=== PATIENT | female | born 1950 | race Caucasian/White ===

== ENCOUNTER 2020-07-21 13:03 | Outpatient (REF) | payer MEDICARE, SELFPAY ==
--- NOTE | 2020-07-21 | MM_ITS ---
EXAMINATION: MM SCREENING DIGITAL BREAST TOMOSYNTHESIS, BILATERAL CLINICAL INFORMATION: Screening. Asymptomatic. The lifetime risk of breast cancer based on the Tyrer-Cuzick Model is 3%. COMPARISON: Mammography: 07/16/2019, 02/10/2017 TECHNIQUE: Digital breast tomosynthesis is performed in both the craniocaudal and mediolateral oblique views along with computer-aided detection (CAD). Synthesized 2D images are generated from the tomosynthesis. FINDINGS: There are scattered areas of fibroglandular density (ACR BI-RADS breast composition Category b). Breast tissue composition is predominantly fatty. Scattered background fibroglandular and stromal densities are stable. There are no significant masses, abnormal calcifications, or other abnormalities. MM/MM tomosynthesis screening BI IMPRESSION: No mammographic evidence of malignancy. ASSESSMENT: BI-RADS 1: Negative RECOMMENDATION: Routine annual mammography screening. This patient's information was entered into a reminder system with a target due date for their next mammogram.
== END 2020-07-21 13:04 | disposition home or self-care (01) ==
LOC: HO.MAMMO 13:03
PROVIDERS: Visit Provider Internal Medicine
DX: Z12.31 Encounter for screening mammogram for malignant neoplasm of breast (principal)
CPT/HCPCS: 77063; 77067

== ENCOUNTER 2021-01-28 10:12 | Outpatient (REF) | payer MEDICARE, SELFPAY ==
--- NOTE | ~2021-01-28 | US_ITS ---
EXAMINATION: US RETROPERITONEAL COMPLETE (RENAL) CLINICAL INFORMATION: Chronic kidney disease. COMPARISON: CT abdomen pelvis 04/17/2018. Ultrasound renal 03/18/2015. TECHNIQUE: Real-time imaging of the kidneys and bladder. FINDINGS: RIGHT KIDNEY: 8.4 x 3.9 x 5.6 cm (SAG x AP x TRV). The kidney is normal in contour. There is a renal cortical thinning and increased echogenicity. No renal stone or mass. No hydronephrosis. LEFT KIDNEY: 10 x 6 x 4.8 cm (SAG x AP x TRV). The kidney is normal in contour. There is left renal cortical thinning. Left cortical echogenicity is normal. There is a 1.3 x 0.7 x 1.1 cm cyst in the lower pole. No renal calculi or hydronephrosis. BLADDER: Well distended and normal. Bilateral ureteral jets are demonstrated. Prevoid bladder volume is 197 mL. Postvoid bladder volume is 25.4 mL. US/US retroperitoneal comp IMPRESSION: Small right kidney. Bilateral renal cortical thinning and increased right renal cortical echogenicity. Small left renal cyst. Unremarkable bladder ultrasound..
== END 2021-01-28 10:13 | disposition home or self-care (01) ==
LOC: HO.US 10:12
PROVIDERS: Visit Provider Internal Medicine Hypertension Specialist
DX: N18.4 Chronic kidney disease, stage 4 (severe) (principal)
CPT/HCPCS: 76770

== ENCOUNTER → 2021-04-01 12:52 | Outpatient (BNVA) | payer MEDICARE, SELFPAY | PROVIDERS: PCP Internal Medicine; Referring Provider Internal Medicine; Visit Provider Internal Medicine Cardiovascular Disease ==

== ENCOUNTER → 2021-04-06 09:41 | Outpatient (REF) | payer MEDICARE, SELFPAY ==
--- NOTE | ~2021-04-06 | NM_ITS ---
Lexiscan Myocardial perfusion study Indication: Preoperative cardiac evaluation, assess for coronary disease and ischemia Technique: The patient was brought in for a Lexiscan perfusion study on 04/06/2021 and was injected 0.4 mg of Lexiscan intravenously. Within a minute of this injection 40 mCi of sestamibi was given intravenously. Images were obtained using the SPECT gamma camera interlaced with the gating device. Images were obtained in supine position. Resting perfusion study was performed on 04/07/2021. Patient was administered 40 mCi of sestamibi intravenously at rest. Images were then obtained in supine position. Total DLP 138mGy-cm. Images were processed with the software and compared side to side in short axis, horizontal long axis and vertical long axis views. Findings: Raw acquisition was reviewed. The stress perfusion study showed no significant perfusion abnormality. Both uncorrected as well as CT attenuation corrected images were reviewed. The gated study shows normal LV systolic function with calculated LVEF of 58%. LV cavity is normal in size. The gated study shows normal wall thickening and contraction of segments. Resting study shows no significant perfusion abnormality. Gating at rest reveals normal wall motion with ejection fraction at 66%. The findings are consistent with no reversible or fixed perfusion abnormality. NM/NM kacy perf SPECT rest & str Impression: 1. Myocardial perfusion imaging study shows normal myocardial perfusion. No evidence of any ischemia or infarction. 2. Gated LVEF is 58% during stress and 66% during rest. 3. Transient ischemic dilatation not present. EKG component of the test reported separately.
--- NOTE | 2021-04-06 09:44 | CA_ITS ---
Acquisition Time: 2021-04-06 09:42:35 Total Exercise Time: 00:02:00 Test Indications: CAD, PREOP Medications: SEE CHART Protocol: LEXISCAN Max HR: 106 BPM 71% of Pred: 148 BPM Max BP: 140/072 mmHG Max Work Load: 1.0 METS Pharmacological stress test with Lexiscan injection, while sitting and kicking her legs, without anginal symptoms, with isolated PVCs, with normotensive response to injection, with nondiagnostic EKG for ischemia. Nuclear images pending. Test reviewed with Dr Martinez. Referred By: Octavio Leiva Overread By: PREM WOODRUFF
== END ==
LOC: HO.CARD 09:41
PROVIDERS: Visit Provider Internal Medicine Cardiovascular Disease
DX: Z01.810 Encounter for preprocedural cardiovascular examination (principal)
CPT/HCPCS: 78452; 93017; A9500; J0280; J2785

== ENCOUNTER → 2021-04-09 10:10 | Outpatient (REF) | payer MEDICARE, SELFPAY ==
--- NOTE | 2021-04-09 10:15 | CA_ITS ---
Transthoracic Echocardiogram Patient (Last, First, Middle): Jordana Alicia, Gender: Female Date of : 1950 Age: 70 Procedure Date: 04/09/2021 Procedure Type: Transthoracic Echocardiogram Location: OP Height: 162.56 cm Weight: 117.94 kg BSA: 2.19 m2 Heart Rate: bpm BP: 136 / 70 mmHg Screen Maker: [email or web address] Referring MD: Octavio Leiva MD Symptoms: Z01.810 - Encounter for preprocedural cardiovascular exam... Study Quality: Fair ECG Rhythm: Sinus Conclusions: - The left ventricular systolic function is normal. The visually estimated ejection fraction is between 65-70%. - There is mild aortic valve stenosis. - There is mild mitral annular calcification. Findings Left Ventricle Normal left ventricular cavity size. There is normal left ventricular wall thickness. The left ventricular systolic function is normal. The visually estimated ejection fraction is between 65-70%. There is no evidence of regional wall motion abnormalities. Diastolic function is normal for age. Right Ventricle Normal right ventricular cavity size and systolic function. Atria Both atria are normal in size. Aortic Valve There is mild calcification of the aortic valve. There is mild aortic valve stenosis. The peak aortic velocity is 2.30 m/s with a calculated peak gradient of 21 mmHg. The mean gradient is 13 mmHg. The aortic valve area is 1.44 cm2. There is no aortic valve regurgitation. Mitral Valve There is mild mitral annular calcification. There is no mitral valve regurgitation. There is no mitral valve stenosis. Pulmonic Valve The pulmonic valve was not well visualized. Tricuspid Valve There is trace tricuspid valve regurgitation. The pulmonary artery systolic pressure is normal. Great Vessels The asc aorta is normal in size. Venous The inferior vena cava is normal in size and collapses greater than 50% with inspiration. Pericardium/Pleural There is no evidence of pericardial effusion. Prior Study Comparison No prior study available for comparison. Measurements 2D Linear Measurements IVSd: 0.94 0.6-0.9/0.6-1.0 cm LVIDd: 4.62 3.9-5.3/4.2-5.9 cm LVIDd Index: 2.11 2.4-3.2/2.2-3.1 cm/m2 LVIDs: 2.86 2.0-3.6 cm LVPWd: 0.87 0.7-1.1 cm Ao Root: 2.90 2.1-3.5 cm LA Diam: 3.30 2.7-3.8/3.0-4.0 cm LAIDs Index: 1.51 1.5-2.3 cm/m2 LV Mass: 174.57 67-162/88-224 g LV Mass Index: 79.71 43-95/49-115 g/m2 LVOT Diam: 2.00 3.0+(-)1.3 cm 2D Systolic Function EF 4C: 59.80 >55% Mitral Valve MV Pk E: 0.74 MV PK A: 0.95 MV Decel Time: 225.00 E/A: 0.80 E'Lateral: 8.27 E'Medial: 7.72 E/E' Med: 9.60 E/E' Lat: 9.00 PHT: 66.00 MVA PHT: 3.33 Decel Calvert: 3.29 Aortic Valve AoV Pk Yoav: 2.30 AoV Mn Yoav: 1.74 AoV VTI: 0.57 AoV Pk Grad: 21.00 Aov Mn Grad: 13.00 CHER Cont.VTI: 1.44 LVOT LVOT Pk Yoav: 1.02 LVOT Mn Yoav: 0.72 LVOT VTI: 0.26 LVOT Pk Grad: 4.00 LVOT Mn Grad: 2.00 LVOT Diam: 2.00 LVOT Area: 3.14 Diastolic Function MV Pk E: 0.74 MV Pk A: 0.95 E/A: 0.80 E'Medial: 7.72 E/E' Med: 9.60 E' Laterial: 8.27 E/E' Lat: 9.00 Right Ventricle TAPSE (mm): 2.82 Tricuspid Valve TR Pk Yoav: 2.09 TR Pk Grad: 17.00 RA Press: 3.00 RVSP: 20.00 Great Vessels Aorta Ao Root-2D: 2.90 2.0-3.7 cm Ao Asc: 3.40 2.1-3.4 cm Updated in Other Vendor System with Status of Final Mark Martinez MD electronically signed on 04/09/2021 1:44:57 PM with status of Final
== END ==
LOC: HO.CARD 10:10
PROVIDERS: Visit Provider Internal Medicine Cardiovascular Disease
DX: Z01.810 Encounter for preprocedural cardiovascular examination (principal); I77.9 Disorder of arteries and arterioles, unspecified
CPT/HCPCS: 93005; 93306; 99202

== ENCOUNTER → 2021-05-05 13:02 | Outpatient (BNVA) | payer MEDICARE, SELFPAY | PROVIDERS: PCP Internal Medicine; Referring Provider Internal Medicine; Visit Provider Nurse Practitioner Family | DX: Z01.810 Encounter for preprocedural cardiovascular examination (principal); I10 Essential (primary) hypertension; I77.9 Disorder of arteries and arterioles, unspecified; I35.0 Nonrheumatic aortic (valve) stenosis; E11.9 Type 2 diabetes mellitus without complications | CPT/HCPCS: 99212 ==

== ENCOUNTER 2022-06-16 11:57 | Outpatient (REF) | payer MEDICARE, SELFPAY ==
--- NOTE | ~2022-06-16 | MM_ITS ---
EXAMINATION: MM SCREENING DIGITAL BREAST TOMOSYNTHESIS, BILATERAL CLINICAL INFORMATION: Screening. Asymptomatic. The lifetime risk of breast cancer based on the Tyrer-Cuzick Model is 3%. COMPARISON: Mammography: 07/21/2020, 07/16/2019, 02/10/2017 TECHNIQUE: Digital breast tomosynthesis is performed in both the craniocaudal and mediolateral oblique views along with computer-aided detection (CAD). Synthesized 2D images are generated from the tomosynthesis. Additional left MLO view is provided. FINDINGS: There are scattered areas of fibroglandular density (ACR BI-RADS breast composition Category b). There are no significant masses, abnormal calcifications, or other abnormalities. Breast tissue composition borders on predominantly fatty. Background stromal markings are normal and similar to prior studies. No developing density or architectural abnormality. The axilla and skin contours are unremarkable. MM/MM tomosynthesis screening BI IMPRESSION: No mammographic evidence of malignancy. ASSESSMENT: BI-RADS 1: Negative RECOMMENDATION: Routine annual mammography screening. This patient's information was entered into a reminder system with a target due date for their next mammogram.
== END 2022-06-16 11:58 | disposition home or self-care (01) ==
LOC: HO.MAMMO 11:57
PROVIDERS: PCP Internal Medicine; Visit Provider Obstetrics & Gynecology
DX: Z12.31 Encounter for screening mammogram for malignant neoplasm of breast (principal)
CPT/HCPCS: 77063; 77067

== ENCOUNTER 2023-06-22 11:46 | Outpatient (REF) | payer MEDICARE, SELFPAY ==
--- NOTE | ~2023-06-22 | MM_ITS ---
EXAMINATION: MM SCREENING DIGITAL BREAST TOMOSYNTHESIS, BILATERAL CLINICAL INFORMATION: Screening. Asymptomatic. COMPARISON: Mammography: This study is compared with prior exams dating back to 2017. TECHNIQUE: Digital breast tomosynthesis is performed in both the craniocaudal and mediolateral oblique views along with computer-aided detection (CAD). Synthesized 2D images are generated from the tomosynthesis. FINDINGS: The breasts are almost entirely fatty (ACR BI-RADS breast composition Category a). There are no significant masses, abnormal calcifications, or other abnormalities. MM/MM tomosynthesis screening BI IMPRESSION: No mammographic evidence of malignancy. ASSESSMENT: BI-RADS BI-RADS 1 - Negative RECOMMENDATION: Routine annual mammography screening. 1 year F/U This examination should not preclude the clinical evaluation of a suspicious palpable abnormality. This patient's information was entered into a reminder system with a target due date for their next mammogram.
== END 2023-06-22 11:47 | disposition home or self-care (01) ==
LOC: HO.MAMMO 11:46
PROVIDERS: Visit Provider Internal Medicine
DX: Z12.31 Encounter for screening mammogram for malignant neoplasm of breast (principal)
CPT/HCPCS: 77063; 77067

== ENCOUNTER → 2023-06-22 12:15 | Outpatient (BNV) | payer MEDICARE, SELFPAY | PROVIDERS: Visit Provider Radiology Diagnostic Radiology | DX: Z12.31 Encounter for screening mammogram for malignant neoplasm of breast (principal) | CPT/HCPCS: 77063; 77067 ==

== ENCOUNTER → 2023-07-21 11:56 | Outpatient (BNVA) | payer MEDICARE, SELFPAY | PROVIDERS: PCP Internal Medicine; Visit Provider Physician Assistant ==

== ENCOUNTER 2024-07-02 06:40 | Day surgery (SDC) | payer MEDICARE, SELFPAY ==
[2024-06-20 16:45] VITALS: BMI 41.4
--- NOTE | 2024-06-21 14:01 | P.CONAN_ITS ---
Documented by User: Emily Lyles NP 06/21/24 14:02 HPI - Anesthesia Eval Consult details Narrative: 74yo F for Left Cataract Extraction IOL Insertion No previous cataract on record Anesthesia Pre-Procedure Meds Is the patient on any of the following meds?: GLP1/DPP4 PMFSH Active Problems Active Problems: All Active Problems Encounter for screening colonoscopy (Acute) Aortic stenosis (Acute) Preoperative cardiovascular examination (Acute) Carotid disease, bilateral (Acute) Diabetes mellitus (Acute) Chronic kidney disease (Acute) HTN (hypertension) (Acute) Past Medical History Medical History (Updated 06/27/24 @ 10:41 by Yoli Solis, DUSTY) Hypothyroidism PONV (postoperative nausea and vomiting) Hx of benign neoplasm of adrenal gland LETICIA (obstructive sleep apnea) Renal calculi Hypercholesteremia Cataracts, bilateral Chronic renal failure (CRF), stage 4 (severe) Arthritis Carotid disease, bilateral Diabetes mellitus Chronic kidney disease HTN (hypertension) Family History Family History Father Diabetes Mother Cancer Diabetes Surgical History Surgical History (Updated 06/27/24 @ 10:42 by Yoli Solis, DUSTY) History of back surgery (~2003) Hx of colonoscopy History of bilateral knee replacement Hx of lithotripsy History of bladder surgery Hx of total adrenalectomy Hx of thyroidectomy History of mandibular surgery Hx of knee surgery Social History Social History (Updated 06/27/24 @ 10:25 by Yoli Solis RN) Household Members: Spouse and Other Household Members Other:: Granddaughter Housing: House Are you a primary primary care provider to a significant other at home: No Do you presently have visiting nurse or other home services: No Alcohol intake: never Patient Tobacco Use Status: Former Tobacco user Tobacco use type: Cigarette Years Smoked: 25 years Smoked in Last 30 Days: No Use of substances other than those prescribed or required for medical reasons: No Have you been hit, kicked, punched, or otherwise hurt by someone within the past year? If so, by whom?: No Are you DNR?: No Advance Directives: No Advance Directives Information Provided: Yes Advance Directives on File: No Recently lost weight without trying: No Poor oral hygiene: No Meds Allergies Allergy/AdvReac Type Severity Reaction Status Date / Time oxycodone [From PERCODAN] Allergy Severe sob, Verified 06/27/24 10:31 diaphoretic, syncope Epzpvqm-UHE-OpM Reductase Allergy Severe MUSCLE PAIN Verified 06/27/24 10:31 Inhibitor [[id number] REDUCTASE INHIBITOR] Home Medications ?Medication ?Instructions ?Recorded ?Confirmed ?Last Taken ?Type amlodipine 5 mg tablet 5 mg PO DAILY 04/01/21 06/27/24 Unknown History diazepam 5 mg tablet 5 mg PO DAILY PRN Anxiety 04/01/21 06/27/24 Unknown History losartan 25 mg tablet 25 mg PO DAILY 04/01/21 06/27/24 Unknown History terazosin 2 mg capsule 2 mg PO BEDTIME 04/01/21 06/27/24 Unknown History tramadol 50 mg tablet 50 mg PO Q6H PRN Pain 04/01/21 06/27/24 Unknown History acetaminophen 500 mg tablet 500 mg PO Q6H PRN Pain 06/20/24 06/27/24 Unknown History albuterol sulfate 90 mcg/actuation 2 puff inhalation Q4H PRN wheezing 06/20/24 06/27/24 Unknown History aerosol inhaler aspirin 81 mg tablet,delayed 81 mg PO DAILY 06/20/24 06/27/24 Unknown History release famotidine 20 mg tablet 20 mg PO BID 06/20/24 06/27/24 Unknown History gabapentin 300 mg capsule 300 mg PO BEDTIME 06/20/24 06/27/24 Unknown History glucosamine sulfate 500 mg tablet 500 mg PO BEDTIME 06/20/24 06/27/24 Unknown History (Glucosamine) insulin degludec 100 30 unit subcut DAILY 06/20/24 06/27/24 Unknown History unit-liraglutide 3.6 mg/mL(3 mL) subcutaneous pen (Xultophy 100/3.6) levothyroxine 100 mcg tablet 100 mcg PO 6XW 06/20/24 06/27/24 Unknown History melatonin 10 mg tablet 15 mg PO BEDTIME PRN Insomnia 06/20/24 06/27/24 Unknown History levothyroxine 150 mcg tablet 150 mcg PO .QSUNDAY 06/27/24 06/27/24 Unknown History Exam Height,Weight and Vital Signs: Height 5 ft 4 in Weight 109.3 kg Assessment and Plan Assessment Anesthesia Assessment: Chart Reviewed Documented by User: Barb Powers MD 07/02/24 07:24 REPLACED BY [facility] Past Medical History Medical History (Updated 06/27/24 @ 10:41 by Yoli Solis RN) Hypothyroidism PONV (postoperative nausea and vomiting) Hx of benign neoplasm of adrenal gland LETICIA (obstructive sleep apnea) Renal calculi Hypercholesteremia Cataracts, bilateral Chronic renal failure (CRF), stage 4 (severe) Arthritis Carotid disease, bilateral Diabetes mellitus Chronic kidney disease HTN (hypertension) Family History Family History Father Diabetes Mother Cancer Diabetes Family history of problems with anesthesia: No Surgical History Surgical History (Updated 06/27/24 @ 10:42 by Yoli Solis RN) History of back surgery (~2003) Hx of colonoscopy History of bilateral knee replacement Hx of lithotripsy History of bladder surgery Hx of total adrenalectomy Hx of thyroidectomy History of mandibular surgery Hx of knee surgery History of Problems with Anesthesia: No Social History Social History (Updated 06/27/24 @ 10:25 by Yoli Solis RN) Household Members: Spouse and Other Household Members Other:: Granddaughter Housing: House Are you a primary primary care provider to a significant other at home: No Do you presently have visiting nurse or other home services: No Alcohol intake: never Patient Tobacco Use Status: Former Tobacco user Tobacco use type: Cigarette Years Smoked: 25 years Smoked in Last 30 Days: No Use of substances other than those prescribed or required for medical reasons: No Have you been hit, kicked, punched, or otherwise hurt by someone within the past year? If so, by whom?: No Are you DNR?: No Advance Directives: No Advance Directives Information Provided: Yes Advance Directives on File: No Recently lost weight without trying: No Poor oral hygiene: No Meds Allergies Allergy/AdvReac Type Severity Reaction Status Date / Time oxycodone [From PERCODAN] Allergy Severe sob, Verified 06/27/24 10:31 diaphoretic, syncope Tmpzypg-LLP-TpB Reductase Allergy Severe MUSCLE PAIN Verified 06/27/24 10:31 Inhibitor [[id number] REDUCTASE INHIBITOR] Home Medications ?Medication ?Instructions ?Recorded ?Confirmed ?Last Taken ?Type amlodipine 5 mg tablet 5 mg PO DAILY 04/01/21 06/27/24 Unknown History diazepam 5 mg tablet 5 mg PO DAILY PRN Anxiety 04/01/21 06/27/24 Unknown History losartan 25 mg tablet 25 mg PO DAILY 04/01/21 06/27/24 Unknown History terazosin 2 mg capsule 2 mg PO BEDTIME 04/01/21 06/27/24 Unknown History tramadol 50 mg tablet 50 mg PO Q6H PRN Pain 04/01/21 06/27/24 Unknown History acetaminophen 500 mg tablet 500 mg PO Q6H PRN Pain 06/20/24 06/27/24 Unknown History albuterol sulfate 90 mcg/actuation 2 puff inhalation Q4H PRN wheezing 06/20/24 06/27/24 Unknown History aerosol inhaler aspirin 81 mg tablet,delayed 81 mg PO DAILY 06/20/24 06/27/24 Unknown History release famotidine 20 mg tablet 20 mg PO BID 06/20/24 06/27/24 Unknown History gabapentin 300 mg capsule 300 mg PO BEDTIME 06/20/24 06/27/24 Unknown History glucosamine sulfate 500 mg tablet 500 mg PO BEDTIME 06/20/24 06/27/24 Unknown History (Glucosamine) insulin degludec 100 30 unit subcut DAILY 06/20/24 06/27/24 Unknown History unit-liraglutide 3.6 mg/mL(3 mL) subcutaneous pen (Xultophy 100/3.6) levothyroxine 100 mcg tablet 100 mcg PO 6XW 06/20/24 06/27/24 Unknown History melatonin 10 mg tablet 15 mg PO BEDTIME PRN Insomnia 06/20/24 06/27/24 Unknown History levothyroxine 150 mcg tablet 150 mcg PO .QSUNDAY 06/27/24 06/27/24 Unknown History Exam Airway Mallampati Class: II (caps laterally and front top) TM Dist: >3cm Neck ROM: Full Heart: rrr Lungs: cta Assessment and Plan Assessment Anesthesia Assessment: Anesthesia Plan Discussed Final Anesthetic Review Family History of Problems with Anesthesia: No History of Problems with Anesthesia: No NPO: Yes ASA Class: III Final Preanesthetic Review: No Changes in Pt Med Stat, Meds/Allgs Chart Reviewed and Consent Obtained/Reviewed Patient Risk: Low Procedure Risk: Low Anesthetic Plan Anesthetic Plan: MAC: Disposition: Standard PACU
[2024-06-27 10:37] VITALS: BMI 41.4
[2024-07-02 07:37] VITALS: PULSE 97; RESP 16; TEMP 36.3; O2SAT 97
[2024-07-02] MEDS: Tetracaine HCl/PF 0.5% Oph Sol 4 ML DROPS 1 DROP EYE-LEFT (07:38)
[2024-07-02] MEDS: Cyclopentolate 1 % Ophth Sol 2 ML DRPBTL 1 DROP EYE-LEFT ×3 (07:43→08:00)
[2024-07-02 07:44] LABS: Glucose, Whole Blood 165 mg/dL (60-115)
[2024-07-02] MEDS: Tropicamide 1 % Ophth Sol 3 ML BTL 1 DROP EYE-LEFT ×3 (07:48→08:04)
[2024-07-02] MEDS: Ketorolac Tromethamine 0.5% Op 10 ML DROPS 1 DROP EYE-LEFT ×3 (07:48→08:03)
[2024-07-02] MEDS: Phenylephrine HCL 2.5% Oph SoL 2 ML BOTTLE 1 DROP EYE-LEFT ×3 (07:50→08:06)
[2024-07-02] MEDS: Lactated Ringers 500 ML 50 ML IV (07:52)
[2024-07-02 07:58] VITALS: BP 168/59; BMI 41.2
--- NOTE | 2024-07-02 08:33 | MHC.SHP ---
Pre-Procedural Eval Section A - 24 Hr Update-Section A only Date of Service: 07/02/24 The patient is an INPATIENT: No Changes since office visit: No Cold of Flu in the past 2 weeks, No New Medical Problems, No Changes in Medication and No Patient answered all questions The patient has been examined within 24 hours of the surgical procedure. The History & Physical has been completed within 30 days and I have reviewed it.: Yes Section B - Complete if H&P > 30 days Chief Complaint: Age-related nuclear cataract, right eye Allergies: Allergies Allergy/AdvReac Type Severity Reaction Status Date / Time oxycodone [From PERCODAN] Allergy Severe sob, Verified 06/27/24 10:31 diaphoretic, syncope Ururptn-SYX-EpA Reductase Allergy Severe MUSCLE PAIN Verified 06/27/24 10:31 Inhibitor [[id number]-GRO REDUCTASE INHIBITOR] Plan Diagnosis/Plan: Unchanged I have reviewed the history and physical and performed a pertinent physical examination on my patient. No changes have occurred unless specified. Time Spent With Patient Time: Total time managing care of this patient today ____ minutes.
--- NOTE | 2024-07-02 08:34 | HO.PNOPHT ---
Ophthalmology Procedure Procedure Date of Service: 07/02/24 Ophthalmology Viscoelastic: Healon Duet Dual Pack Pro Ophthalmology Lenses: Other (22.5 [id number] @ 178) Procedure Notes: PREOPERATIVE DIAGNOSIS: Decreased visual acuity left eye secondary to cataract POSTOPERATIVE DIAGNOSIS: Same PROCEDURE: Left cataract extraction with multifocal intraocular lens insertion SURGEON: Juan M Berry M.D. ANESTHESIA: Topical/MAC ESTIMATED BLOOD LOSS: None COMPLICATIONS: None After obtaining informed consent, the patient was brought to the operation room suite and placed in the supine position. After adequate sedation per anesthesia, topical drops of Tetracaine were given to the left eye. The eye was then prepped and draped in the usual sterile fashion. The operating room microscope was then positioned over the operative eye and a lid speculum placed. A paracentesis was created. Viscoelastic was then instilled into the anterior chamber. A three plane incision was then created temporally, utilizing a 2.85 mm keratome. Capsulotomy forceps were then utilized to create a circular tear capsulotomy. Hydrodissection and hydrodelineation were carried out until adequate mobilization of the nucleus occurred. Phacoemulsification was then utilized to remove the dense central nucleus followed by removal of the cortical material utilizing the automated aspiration irrigation unit. Viscoelastic was instilled into the posterior capsular bag followed by placement of a toric multifocal posterior chamber intraocular lens axis 178 without difficulty. The residual Viscoelastic was then removed utilizing the automated IA machine. The wound was check and found to be watertight. The patient tolerated the procedure well and the lid speculum was removed. Intracameral injection of Vigamox 0.1 mL followed by a subtenon injection of Kenalog-40 0.2 mL were administered. The patient will be seen in the a.m.
[2024-07-02 09:04] VITALS: BP 156/63; PULSE 61; RESP 12; TEMP 36.1; O2SAT 100
[2024-07-02 09:18] VITALS: BP 158/64; PULSE 58; RESP 18; TEMP 36.1; O2SAT 100
== END 2024-07-02 09:35 | disposition home or self-care (01) ==
PROVIDERS: PCP Internal Medicine; Visit Provider Ophthalmology
PROC: (CPT 66984; principal; 2024-07-02 08:30)
DX: H25.12 Age-related nuclear cataract, left eye (principal); H52.4 Presbyopia; H18.413 Arcus senilis, bilateral; H11.153 Pinguecula, bilateral; I12.9 Hypertensive chronic kidney disease with stage 1 through stage 4 chronic kidney disease, or unspecified chronic kidney disease; E11.22 Type 2 diabetes mellitus with diabetic chronic kidney disease; N18.4 Chronic kidney disease, stage 4 (severe); E78.00 Pure hypercholesterolemia, unspecified; E03.9 Hypothyroidism, unspecified; Z79.4 Long term (current) use of insulin; Z79.82 Long term (current) use of aspirin; Z79.899 Other long term (current) drug therapy; Z88.5 Allergy status to narcotic agent; Z88.8 Allergy status to other drugs, medicaments and biological substances; Z87.891 Personal history of nicotine dependence
CPT/HCPCS: 66984; 82947; J2250; J3301

== ENCOUNTER 2024-07-09 08:11 | Day surgery (SDC) | payer MEDICARE, SELFPAY ==
[2024-06-20 16:50] VITALS: BMI 41.4
[2024-06-27 10:51] VITALS: BMI 41.4
[2024-07-09 08:54] VITALS: BMI 41.7
[2024-07-09 09:01] VITALS: BP 178/83; PULSE 63; RESP 16; TEMP 36.1; O2SAT 98
[2024-07-09] MEDS: Tetracaine HCl/PF 0.5% Oph Sol 4 ML DROPS 1 DROP EYE-RIGHT (09:06)
[2024-07-09] MEDS: Cyclopentolate 1 % Ophth Sol 2 ML DRPBTL 1 DROP EYE-RIGHT ×3 (09:07→09:12)
[2024-07-09] MEDS: Tropicamide 1 % Ophth Sol 3 ML BTL 1 DROP EYE-RIGHT ×3 (09:09→09:13)
[2024-07-09] MEDS: Ketorolac Tromethamine 0.5% Op 10 ML DROPS 1 DROP EYE-RIGHT ×3 (09:09→09:13)
[2024-07-09] MEDS: Phenylephrine HCL 2.5% Oph SoL 2 ML BOTTLE 1 DROP EYE-RIGHT ×3 (09:10→09:14)
[2024-07-09 09:29] LABS: Glucose, Whole Blood 165 mg/dL (60-115)
--- NOTE | 2024-07-09 09:35 | P.CONAN_ITS ---
HPI - Anesthesia Eval Consult details Narrative: 74 yo F presenting for right cataract extraction IOL insertion Anesthesia Pre-Procedure Meds Is the patient on any of the following meds?: GLP1/DPP4 PMFSH Active Problems Active Problems: All Active Problems Encounter for screening colonoscopy (Acute) Aortic stenosis (Acute) Preoperative cardiovascular examination (Acute) Carotid disease, bilateral (Acute) Diabetes mellitus (Acute) Chronic kidney disease (Acute) HTN (hypertension) (Acute) Past Medical History Medical History (Updated 06/27/24 @ 10:41 by Yoli Solis RN) Hypothyroidism PONV (postoperative nausea and vomiting) Hx of benign neoplasm of adrenal gland LETICIA (obstructive sleep apnea) Renal calculi Hypercholesteremia Cataracts, bilateral Chronic renal failure (CRF), stage 4 (severe) Arthritis Carotid disease, bilateral Diabetes mellitus Chronic kidney disease HTN (hypertension) Family History Family History Father Diabetes Mother Cancer Diabetes Family history of problems with anesthesia: No Surgical History Surgical History (Updated 06/27/24 @ 10:42 by Yoli Solis RN) History of back surgery (~2003) Hx of colonoscopy History of bilateral knee replacement Hx of lithotripsy History of bladder surgery Hx of total adrenalectomy Hx of thyroidectomy History of mandibular surgery Hx of knee surgery History of Problems with Anesthesia: No Social History Social History (Updated 06/27/24 @ 10:25 by Yoli Solis RN) Household Members: Spouse and Other Household Members Other:: Granddaughter Housing: House Are you a primary career development director to a significant other at home: No Do you presently have visiting nurse or other home services: No Alcohol intake: never Patient Tobacco Use Status: Former Tobacco user Tobacco use type: Cigarette Years Smoked: 25 years Smoked in Last 30 Days: No Use of substances other than those prescribed or required for medical reasons: No Have you been hit, kicked, punched, or otherwise hurt by someone within the past year? If so, by whom?: No Are you DNR?: No Advance Directives: No Advance Directives Information Provided: Yes Advance Directives on File: No Recently lost weight without trying: No Nutrition Risks: Surgical patient >75years Poor oral hygiene: No Meds Allergies Allergy/AdvReac Type Severity Reaction Status Date / Time oxycodone [From PERCODAN] Allergy Severe sob, Verified 06/27/24 10:31 diaphoretic, syncope Lyfapuc-IJV-VgP Reductase Allergy Severe MUSCLE PAIN Verified 06/27/24 10:31 Inhibitor [YNSRIXX-JRN-YMY REDUCTASE INHIBITOR] Active Medications: Current Medications Povidone Iodine (Povidone Iodine 5 % Ophth Soln 30 Ml Bottle) 1 appl EYE-RIGHT PREOP PRN PRN Reason: Pre-Op Surgical Implant Prophy Home Medications ?Medication ?Instructions ?Recorded ?Confirmed ?Last Taken ?Type amlodipine 5 mg tablet 5 mg PO DAILY 04/01/21 06/27/24 07/09/24 History diazepam 5 mg tablet 5 mg PO DAILY PRN Anxiety 04/01/21 06/27/24 Unknown History terazosin 2 mg capsule 2 mg PO BEDTIME 04/01/21 06/27/24 Unknown History tramadol 50 mg tablet 50 mg PO Q6H PRN Pain 04/01/21 06/27/24 Unknown History acetaminophen 500 mg tablet 500 mg PO Q6H PRN Pain 06/20/24 06/27/24 Unknown History albuterol sulfate 90 mcg/actuation 2 puff inhalation Q4H PRN wheezing 06/20/24 06/27/24 Unknown History aerosol inhaler aspirin 81 mg tablet,delayed 81 mg PO DAILY 06/20/24 06/27/24 Unknown History release famotidine 20 mg tablet 20 mg PO BID 06/20/24 06/27/24 Unknown History gabapentin 300 mg capsule 300 mg PO BEDTIME 06/20/24 06/27/24 Unknown History glucosamine sulfate 500 mg tablet 500 mg PO BEDTIME 06/20/24 06/27/24 Unknown History (Glucosamine) insulin degludec 100 30 unit subcut DAILY 06/20/24 06/27/24 07/06/24 History unit-liraglutide 3.6 mg/mL(3 mL) subcutaneous pen (Xultophy 100/3.6) levothyroxine 100 mcg tablet 100 mcg PO 6XW 06/20/24 06/27/24 07/09/24 History melatonin 10 mg tablet 15 mg PO BEDTIME PRN Insomnia 06/20/24 06/27/24 Unknown History levothyroxine 150 mcg tablet 150 mcg PO .QSUNDAY 06/27/24 06/27/24 Unknown History Exam Exam Date and Time: 07/09/24934 Height,Weight and Vital Signs: Height 5 ft 4 in Weight 110.336 kg Last Vital Signs Temp 96.9 F 07/09/24 09:01 Pulse 63 07/09/24 09:01 Resp 16 07/09/24 09:01 BP 178/83 H 07/09/24 09:01 Pulse Ox 98 07/09/24 09:01 O2 Del Method Room Air 07/09/24 09:01 Airway Mallampati Class: II TM Dist: <=3cm Neck ROM: Full Loose/Missing/Broken Teeth: No (patient denies any loose or broken teeth) Heart: S1S2 Lungs: CTAB Assessment and Plan Assessment Anesthesia Assessment: Anesthesia Plan Discussed and Chart Reviewed Final Anesthetic Review Family History of Problems with Anesthesia: No History of Problems with Anesthesia: No NPO: Yes ASA Class: III Final Preanesthetic Review: No Changes in Pt Med Stat, Meds/Allgs Chart Reviewed, Consent Obtained/Reviewed and Anes Risks/Benef Reviewed Patient Risk: Intermediate Procedure Risk: Low Anesthetic Plan Anesthetic Plan: MAC: and Agree w/ Assess. and Plan Disposition: Standard PACU
--- NOTE | 2024-07-09 10:09 | MHC.SHP ---
Pre-Procedural Eval Section A - 24 Hr Update-Section A only Date of Service: 07/09/24 The patient is an INPATIENT: No Changes since office visit: No Cold of Flu in the past 2 weeks, No New Medical Problems, No Changes in Medication and No Patient answered all questions The patient has been examined within 24 hours of the surgical procedure. The History & Physical has been completed within 30 days and I have reviewed it.: Yes Section B - Complete if H&P > 30 days Chief Complaint: Age-related nuclear cataract, right eye Allergies: Allergies Allergy/AdvReac Type Severity Reaction Status Date / Time oxycodone [From PERCODAN] Allergy Severe sob, Verified 06/27/24 10:31 diaphoretic, syncope Iiiduvf-CKS-XjN Reductase Allergy Severe MUSCLE PAIN Verified 06/27/24 10:31 Inhibitor [OCVQJAN-WXL-EVF REDUCTASE INHIBITOR] Plan Diagnosis/Plan: Unchanged I have reviewed the history and physical and performed a pertinent physical examination on my patient. No changes have occurred unless specified. Time Spent With Patient Time: Total time managing care of this patient today ____ minutes.
--- NOTE | 2024-07-09 10:09 | HO.PNOPHT ---
Ophthalmology Procedure Procedure Date of Service: 07/09/24 Ophthalmology Viscoelastic: Heallevi Duet Dual Pack Pro Ophthalmology Lenses: Other (23 [id number]) Procedure Notes: PREOPERATIVE DIAGNOSIS: Decreased visual acuity right eye secondary to cataract POSTOPERATIVE DIAGNOSIS: Same PROCEDURE: Right cataract extraction with toric multifocal intraocular lens insertion axis11 SURGEON: Juan M Berry M.D. ANESTHESIA: Topical/MAC ESTIMATED BLOOD LOSS: None COMPLICATIONS: None After obtaining informed consent, the patient was brought to the operating room suite and placed in the supine position. After adequate sedation per anesthesia, topical drops of Tetracaine were given to the right eye. The eye was then prepped and draped in the usual sterile fashion. The operating room microscope was then positioned over the operative eye and a lid speculum placed. A paracentesis was created. Viscoelastic was then instilled into the anterior chamber. A three plane incision was then created temporally, utilizing a 2.85 mm keratome. Capsulotomy forceps were then utilized to create a circular tear capsulotomy. Hydrodissection and hydrodelineation were carried out until adequate mobilization of the nucleus occurred. Phacoemulsification was then utilized to remove the dense central nucleus followed by removal of the cortical material utilizing the automated aspiration irrigation unit. Viscoelastic was instilled into the posterior capsular bag followed by placement of a toric multifocal posterior chamber intraocular lens axis11 without difficulty. The residual Viscoelastic was then removed utilizing the automated IA machine. The wound was checked and found to be watertight. The patient tolerated the procedure well and the lid speculum was removed. Intracameral injection of Vigamox 0.1 mL followed by a subtenon injection of Kenalog-40 0.2 mL were administered. The patient will be seen in the a.m.
[2024-07-09 10:44] VITALS: BP 153/61; PULSE 60; RESP 16; TEMP 36.3; O2SAT 98
== END 2024-07-09 10:59 | disposition home or self-care (01) ==
PROVIDERS: PCP Internal Medicine; Visit Provider Ophthalmology
PROC: (CPT 66984; principal; 2024-07-09 10:00)
DX: H25.11 Age-related nuclear cataract, right eye (principal); H52.4 Presbyopia; H11.153 Pinguecula, bilateral; E78.00 Pure hypercholesterolemia, unspecified; H18.413 Arcus senilis, bilateral; E11.22 Type 2 diabetes mellitus with diabetic chronic kidney disease; I12.9 Hypertensive chronic kidney disease with stage 1 through stage 4 chronic kidney disease, or unspecified chronic kidney disease; N18.4 Chronic kidney disease, stage 4 (severe); E03.9 Hypothyroidism, unspecified; Z79.4 Long term (current) use of insulin; Z79.82 Long term (current) use of aspirin; Z79.899 Other long term (current) drug therapy; Z88.5 Allergy status to narcotic agent; Z88.8 Allergy status to other drugs, medicaments and biological substances; Z98.890 Other specified postprocedural states; Z96.653 Presence of artificial knee joint, bilateral; Z87.891 Personal history of nicotine dependence
CPT/HCPCS: 66984; 82947; J2250; J3301; V2788

== ENCOUNTER 2024-07-16 13:50 | Outpatient (REF) | payer MEDICARE, SELFPAY ==
--- NOTE | ~2024-07-16 | MM_ITS ---
EXAMINATION: MM SCREENING DIGITAL BREAST TOMOSYNTHESIS, BILATERAL CLINICAL INFORMATION: Screening. Asymptomatic. COMPARISON: Mammography: Comparison is made with available priors TECHNIQUE: Digital breast mammography with tomosynthesis is performed in both the craniocaudal and mediolateral oblique views along with computer-aided detection (CAD). FINDINGS: There are scattered areas of fibroglandular density (ACR BI-RADS breast composition Category b). There are no significant masses, abnormal calcifications, or other abnormalities. MM/MM tomosynthesis screening BI IMPRESSION: No mammographic evidence of malignancy. ASSESSMENT: BI-RADS BI-RADS 1 - Negative RECOMMENDATION: Routine annual mammography screening. 1 year F/U This examination should not preclude the clinical evaluation of a suspicious palpable abnormality. This patient's information was entered into a reminder system with a target due date for their next mammogram. Electronically signed by: Nicole Rainey DO 07/25/2024 12:07 PM ADOLFO
== END 2024-07-16 13:51 | disposition home or self-care (01) ==
LOC: HO.MAMMO 13:50
PROVIDERS: PCP Internal Medicine; Visit Provider Internal Medicine
DX: Z12.31 Encounter for screening mammogram for malignant neoplasm of breast (principal)
CPT/HCPCS: 77063; 77067

== ENCOUNTER → 2024-07-16 14:15 | Outpatient (BNV) | payer MEDICARE, SELFPAY | PROVIDERS: PCP Internal Medicine; Visit Provider Internal Medicine | DX: Z12.31 Encounter for screening mammogram for malignant neoplasm of breast (principal) | CPT/HCPCS: 77063; 77067 ==

== ENCOUNTER 2024-12-25 12:32 | Outpatient (AMB) | payer MEDICARE, SELFPAY ==
--- NOTE | 2024-12-25 13:02 | A.OFFVIS_ITS ---
Vital Signs 12/25/24 13:05 12/25/24 13:19 Height 5 ft 4 in Weight 235 lb BMI 40.3 BP 180/93 H 138/68 Blood Pressure Location Lt brachial Lt brachial Position Sitting Sitting Pulse 65 Pulse Oximetry (%) 98 Oxygen Delivery Method Room Air Comment manual Intake Visit Reasons: Follow Up, Charity Rose pt Intake Note: Complex follow up for pre Colonoscopy screening, /Charity waldrop 07/21/2023 and Colonoscopy was never s/c. Patient cc: constipation, acid reflux with some burning sensation on and off, denies any other GI issues for today. 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 Social Welfare Required: No Accompanied by: Self / Same As Patient Allergies oxycodone [From PERCODAN] Allergy (Severe, Verified 12/25/24 13:01) sob, diaphoretic, syncope Bigradp-IKH-YnR Reductase Inhibitor [HOJLWGM-QRZ-PIJ REDUCTASE INHIBITOR] Allergy (Severe, Verified 12/25/24 13:01) MUSCLE PAIN Medication List - Last Reconciled 12/25/24 by Julia Swenson CNP acetaminophen 500 mg PO Q6H PRN albuterol sulfate 90 mcg/actuation 2 puffs inhalation Q4H PRN amlodipine 5 mg PO DAILY aspirin 81 mg PO DAILY bisacodyl (Dulcolax (bisacodyl)) 15 mg (3 x 5 mg) PO ONCE 1 day cholecalciferol (vitamin D3) 25 mcg PO DAILY diazepam 5 mg PO DAILY PRN docusate sodium 200 mg (2 x 100 mg) PO BEDTIME famotidine 20 mg PO BID PRN gabapentin 300 mg PO BEDTIME glucosamine sulfate (Glucosamine) 500 mg PO BEDTIME insulin degludec-liraglutide 100 unit-3.6 mg /mL (3 mL) (Xultophy 100/3.6) 30 units subcut DAILY levothyroxine 100 mcg PO 6XW levothyroxine 150 mcg PO .QSUNDAY losartan 25 mg PO DAILY melatonin 15 mg PO BEDTIME PRN melatonin mg PO polyethylene glycol 3350 (Miralax) 238 grams PO ONCE PRN 1 day terazosin 2 mg PO BEDTIME tramadol 50 mg PO Q6H PRN HPI HPI Follow Up, Charity Rose pt: Details: Patient is a 74-year-old female with PMH of hypothyroidism, LETICIA, arthritis, CKDIV, hypertension and diabetes. Last visit with BILLIE Pantoja 07/21/2023 for colonoscopy screening. Pt is here today for pre-colonscopy screening. Last colonoscopy 10 years ago. Shares she never received a call for appointment scheduling back in 2022. She reports taking docusate nightly with BMs every day-Type 2-3. She attributes symptoms to nightly tramadol. She denies ab pain, n/v, hemorrhoids or melena/hematochezia. consumes fruit and vegetables daily limited intake of legumes drinks approx 36-48 oz of water/day, occasionally lemonade and rarely diet coke Reports taking OTC esomeprazole approx 2x/week after consuming trigger foods for acid reflux. Last dose yesterday after eating pasta. Associated symptoms: infrequent regurgitation Aggravating factors:as above Alleviating attempts:as above Patient denies: fever/chills, n/v, appetite changes, unintentional wt loss, ab pain or dysphasia Social hx: denies ETOH use marijuana gummies 3x/week, denies other recreational drug use former smoker, cessation 30 years ago family hx -Mother, ? lung CA denies personal hx of CA PFSH Medical History (Updated 12/25/24 @ 17:54 by Julia Swenson CNP) Acid reflux Constipation Hypothyroidism PONV (postoperative nausea and vomiting) Hx of benign neoplasm of adrenal gland LETICIA (obstructive sleep apnea) Renal calculi Hypercholesteremia Cataracts, bilateral Chronic renal failure (CRF), stage 4 (severe) Arthritis Carotid disease, bilateral Diabetes mellitus Chronic kidney disease HTN (hypertension) Surgical History (Updated 12/25/24 @ 13:03 by Lorene Rodriges) Hx of cataract surgery History of back surgery (~2003) Hx of colonoscopy History of bilateral knee replacement Hx of lithotripsy History of bladder surgery Hx of total adrenalectomy Hx of thyroidectomy History of mandibular surgery Hx of knee surgery Family History Father Diabetes Mother Cancer Diabetes Social History Household Members: Spouse and Other Household Members Other:: Granddaughter Housing: House Are you a primary manager respiratory care to a significant other at home: No Do you presently have visiting nurse or other home services: No Alcohol intake: never Patient Tobacco Use Status: Former Tobacco user Tobacco use type: Cigarette Years Smoked: 25 years Review of Systems Const Reports as per [facility] ENT Reports as per [facility] Card Reports as per [facility] Resp Reports as per [facility] GI Reports as per [facility] Reports as per [facility] Physical Exam Vital Signs: Last Vital Signs Pulse 65 12/25/24 13:05 BP 138/68 12/25/24 13:19 Pulse Ox 98 12/25/24 13:05 Oxygen Delivery Method Room Air 12/25/24 13:05 BMI result Body Mass Index 40.3 Const General: healthy appearing, no acute distress and well developed Nutritional Appearance: well nourished Orientation/consciousness: patient oriented x3 HEENT Head: Yes normal to inspection, Yes normocephalic and Yes atraumatic Face and sinus: Yes normal facial exam Eyes General: appearance normal, both eyes and all related structures Neck Neck: Yes normal visual inspection Resp Effort & Inspection: normal respiratory effort, able to speak in complete sentences, no tracheal deviation and symmetric chest movement Auscultation: clear to auscultation bilaterally Cardio Jugular venous distension: no JVD Rate: regular rate Rhythm: regular rhythm Heart sounds: S1 normal heart sound present, S2 normal heart sound present, no gallops and no murmurs GI Inspection: Yes normal to inspection, No distended and Yes obesity Palpation (GI): Soft to palpation, not firm, nontender and No hepatosplenomegaly present Auscultation: normal bowel sounds Neuro General: patient oriented x3 Gait exam (Neuro): Normal gait present Psych Appearance: grossly normal Mental Status: mental status grossly normal Speech and movement: Normal speech and movement present Affect: normal affect Attitude: cooperative Thought process: Normal thought process present Thought content: Normal thought content present Insight: Good insight present (Psych) Judgement: Good judgement present (Psych) Assessment & Plan Assessment & Plan (1) Acid reflux: Code(s): K21.9 - Gastro-esophageal reflux disease without esophagitis Category: Medical Qualifiers: Esophagitis presence: esophagitis presence not specified Qualified Code(s): K21.9 - Gastro-esophageal reflux disease without esophagitis Plan: Risk factors include obesity. We will trial Pepcid for breakthrough symptoms and hold on esomeprazole at this time. We will also proceed with EGD at time of colonoscopy. Education on GERD prevention-Advised against heavy meals. Encouraged small frequent meals VS large meals, remaining upright after meals x 2-3 hours, avoid late night eating/spicy foods/caffeine/alcohol/known triggers and tight fitting clothes (2) Constipation: Code(s): K59.00 - Constipation, unspecified Category: Medical Qualifiers: Constipation type: drug induced constipation Qualified Code(s): K59.03 - Drug induced constipation Plan: Suspect drug-induced given tramadol on board. She is open to adding MiraLax, script sent. Basic labs today to screen for any anemia Reinforced lifestyle modifications to promote regularity: -higher fiber diet -adequate hydration with water -150 minutes of moderate intensity exercise per week (3) Encounter for screening colonoscopy: Comment: 10/23/2003 colonoscopy with findings of hyperplastic polyp, sigmoid colon Code(s): Z12.11 - Encounter for screening for malignant neoplasm of colon Category: Medical Plan: Does appear she had a colonoscopy here at [facility] back in October 2003 with findings of hyperplastic polyp from the sigmoid. Recommendations for repeat in 5 years. Subjective reports of colonoscopy since then at outside faciliyt-no recods. Reviewed prep and procedure expectations. She understands instructions on holding long-acting insulin prior to procedure, as well as holding aspirin 7 days prior. Prep Rx'd to preferred pharmacy. Plan Follow-up after EGD/colonoscopy are sooner as needed Time: I spent a total of 45 minutes on the date of encounter which includes: Preparing to see the patient (reviewed previous documentation, test results and medical history) Performing a medically appropriate exam and/or evaluation Ordering medications, tests, and procedures Documenting clinical information in the health record Orders: Orders Complete Blood Count Auto Diff Today K59.00 - Constipation, unspecified IRON PROFILE Today K59.00 - Constipation, unspecified Basic Metabolic Panel Today K59.00 - Constipation, unspecified Medications: New polyethylene glycol 3350 (Miralax) Take 17G (one cap full) daily with 8oz of water 17 grams PO DAILY 30 days 238 grams 2RF constipation Changed From famotidine 20 mg PO BID To famotidine 20 mg PO BID PRN 180 tabs 1RF acid reflux From bisacodyl (Dulcolax (bisacodyl)) Day before procedure, prep day Take 4 tablets by mouth upon awakening followed by large glass of water 20 mg (4 x 5 mg) PO ONCE 1 day 4 tabs 0RF colonoscopy prep Z12.11 - Encounter for screening for malignant neoplasm of colon To bisacodyl (Dulcolax (bisacodyl)) Day before procedure, prep day Take 3 tablets 12 noon day of prep 15 mg (3 x 5 mg) PO ONCE 1 day 3 tabs 0RF colonoscopy prep Z12.11 - Encounter for screening for malignant neoplasm of colon Refilled polyethylene glycol 3350 (Miralax) Take as directed by mouth the day before your procedure. 238 grams PO ONCE 1 day PRN 238 grams 0RF laxative effect Coding Level of Care Code Established Pt Est Pt Level 4 (56107) Patient Type Established Diagnoses Gastroesophageal reflux disease, unspecified whether esophagitis present K21.9 Esophagitis presence: esophagitis presence not specified Drug-induced constipation K59.03 Constipation type: drug induced constipation Encounter for screening colonoscopy Z12.11
[2024-12-25 13:05] VITALS: BP 180/93; PULSE 65; O2SAT 98; BMI 40.3
[2024-12-25 13:19] VITALS: BP 138/68
--- OUTSIDE RECORDS SUMMARY | 2024-12-25 14:51 | XMS_ITS | Patient Health Record ---
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 Bolter Helper Name Role Phone Mason Mccray MD Primary Care Provider Arjun Sam Unavailable [phone] Allergies Allergen (clinical drug ingredient) Drug/Non Drug Allergy documented on EMR Reaction Allergy Type Onset Date Status atorvastatin Atorvastatin Calcium headaches, myalgia Drug Allergy Active Codeine Phosphate Unknown Drug Allergy Active acetaminophen / oxycodone Percocet Unknown Drug Allergy Active pravastatin Pravastatin Sodium myalgia Drug Allergy Active Simvastatin myalgia Drug Allergy Activ e lisinopril Zestril cough Drug Allergy Active Reason For Referral No Information Medications Medication SIG (Take, Route, Frequency, Duration) Notes Start Date End Date Status Acetaminophen 500 MG 1 capsule as needed Orally every 6 hrs PRN Active Co Q 10 Active amLODIPine Besylate 2.5 MG Orally Active Losartan Potassium 25 MG Orally Active Gabapentin 300 MG Orally Twice a day Active Terazosin HCl 2 MG Orally A ctive traMADol HCl 50 MG Orally PRN Active Ammonium Lactate 12 % 1 APPLICATION EXTE RNALLY TWICE A DAY 30 DAYS for 70 Active tiZANidine HCl Not-T aking Tresiba 65 Not-Takin g Turmeric 450 MG as directed Orally Not-Taking NovoLOG 35 Subcutaneous before meal Not-Taking VESIcare 10 MG Orally Activ e oxyBUTYnin Not-Takin g Extra Depth Orthopedic Shoes (1 Pair) with Customized Heat Molded Multidensity Innersoles (3 Pair) as directed Dx: NIDDM/Polyneuropathy (E11.42), Hammertoe Foot Deformity (M20.41,M20.42), Preulcerative Skin Lesion(s) (L85.1 Active Synthroid 125 MCG 1 tablet on an empty stomach in the morning Orally Once a day for 30 day(s) Active Vitamin B12 Active Vitamin D3 Active Xultophy Active Rosuvastatin Calcium 5 MG 1 tablet Orally Once a day Not-Taking Immunizations Vaccine Route Administration Date Status Comme nts COVID-19 Moderna Vaccine Unknown 06/19/2022 Administered 1st 10/29/20 2nd 11/26/20 3rd 10/28/21 Influenza Unknown 09/05/2018 Administered Influenza Unknown 05/07/2019 Administered Influenza Unknown 06/05/2022 Administered Influenza Unknown 05/06/2023 Administered Social History Tobacco Use: Social History Observation Description Date Details (start date - stop date) Never Smoker NA - NA Tobacco use other than smoking: Question Answer Notes Are you an other tobacco user? No Tobacco Control (Standard) Question Answer Notes Tobacco use: Nonsmoker Additional Findings: Tobacco non-user Current no nsmoker AUDIT-C (Standard) Question Answer Notes Did you have a drink containing alcohol in the p ast year? No Points 0 Interpretation Negative Problems Problem Type SNOMED Code ICD Code Onset Dates Problem Status W/U Status Risk Notes Problem 11202331 Other hammer toe(s) (acquired), right foot (M20.41) Active confirmed Response to treatment, Improvemen t Problem 20348413 Other hammer toe(s) (acquired), left foot (M20.42) Active confirmed Response to treatment, Improvemen t Problem Polyneuropathy due to type 2 diabetes mellitus (258943890) Type 2 diabetes mellitus with diabetic polyneuropathy (E11.42) Active confirmed Vital Signs Blood pressure diastolic 80 mm Hg 10/19/2024 Height 5ft 4in in 10/19/2024 Blood pressure systolic 121 mm Hg 10/19/2024 Weight 230 lbs 10/19/2024 BMI 39.48 kg/m2 10/19/2024 Procedures Procedure Date Ordered Date Performed Result Body Sit e 75526-ZIGDEWK NAIL, 1-5 04/20/2024 N/A 26163-STIX SKIN LESIONS, OVER 4 04/20/2024 N/A A3845-KXGQPJPQ DYSTROPHIC NAILS ANY # 04/20/2024 N/A 75563-MUMXUMX NAIL, 1-5 07/20/2024 N/A 90528-PZWW SKIN LESIONS, OVER 4 07/20/2024 N/A Q5814-MKKXCXIF DYSTROPHIC NAILS ANY # 07/20/2024 N/A 74926-FGRJFBM NAIL, 1-5 10/19/2024 N/A 90905-WHFR SKIN LESIONS, OVER 4 10/19/2024 N/A Q6212-YDODNQZH DYSTROPHIC NAILS ANY # 10/19/2024 N/A Encounters Encounter Location Date Provider Diagnosis [address] [address] 04/20/2024 Arjun Yates Type 2 diabetes mellitus with diabetic polyneuropathy E11.42 ; Tinea unguium B35.1 and Xerosis of skin L85.[address] [address] 07/20/2024 Arjun Yates Type 2 diabetes mellitus with diabetic polyneuropathy E11.42 ; Tinea unguium B35.1 ; Other hammer toe(s) (acquired), right foot M20.41 and Other hammer toe(s) (acquired), left foot M20.[address] [address] 10/19/2024 Arjun Yates Type 2 diabetes mellitus with diabetic polyneuropathy E11.42 ; Tinea unguium B35.1 ; Other hammer toe(s) (acquired), right foot M20.41 and Other hammer toe(s) (acquired), left foot M20.42 Assessments Encounter Date Diagnosis (ICD Code) Assessment Notes Treatment Notes Treatment Clinical Notes Section Notes 04/20/2024 Tinea unguium (ICD-10 - B35.1) 04/20/2024 Type 2 diabetes mellitus with diabetic polyneuropathy (ICD-10 - E11.42) 07/20/2024 Tinea unguium (ICD-10 - B35.1) 07/20/2024 Type 2 diabetes mellitus with diabetic polyneuropathy (ICD-10 - E11.42) 10/19/2024 Tinea unguium (ICD-10 - B35.1) 10/19/2024 Type 2 diabetes mellitus with diabetic polyneuropathy (ICD-10 - E11.42) 04/20/2024 Xerosis of skin (ICD-10 - L85.3) 07/20/2024 Other hammer toe(s) (acquired), right foot (ICD-10 - M20.41) Patient Educated with: DIABETIC FOOT CARE INSTRUCTIONS. pdf (DIABETIC FOOT CARE INSTRUCTIONS. pdf) 10/19/2024 Other hammer toe(s) (acquired), right foot (ICD-10 - M20.41) Patient Educated with: DIABETIC FOOT CARE INSTRUCTIONS. pdf (DIABETIC FOOT CARE INSTRUCTIONS. pdf) 10/19/2024 Other hammer toe(s) (acquired), left foot (ICD-10 - M20.42) 07/20/2024 Other hammer toe(s) (acquired), left foot (ICD-10 - M20.42) Plan Of Treatment Pending Test Test Name Order Date 89407-HOWGEOC NAIL, 1-12/26/2018 56237-MBZGNMJ NAIL, -03/06/2019 53602-KZJXTTS NAIL, -06/05/2019 81271-MNWHXZE NAIL, -08/07/2019 66996-FIGVVBG NAIL, -11/02/2019 07804-VFZYIID NAIL, -01/11/2020 79829-NNHQZTQ NAIL, -03/14/2020 92413-CVVIXOH NAIL, -05/23/2020 31028-BPNRLOY NAIL, -08/08/2020 68939-FZBDGSN NAIL, -10/17/2020 02332-NSQIJVW NAIL, -12/26/2020 99505-ZNMRFWD NAIL, -03/10/2021 56244-JPLJSGW NAIL, -06/02/2021 57597-XTFTCUG NAIL, -5 09/11/2021 94415-DHCIBFK NAIL, -11/24/2021 89179-PDRWGLM NAIL, -02/09/2022 64670-LPBPLMZ NAIL, -05/11/2022 28457-PUWOVIV NAIL, -07/23/2022 20398-ZLHLUGB NAIL, -10/19/2022 66618-UMGPBMP NAIL, -01/07/2023 82283-TIGNLYQ NAIL, -03/25/2023 50821-NDJAUGN NAIL, 1-5 06/10/2023 62300-GXZJJVG NAIL, 1-5 08/23/2023 13198-TRVLKNQ NAIL, 1-5 11/04/2023 19437-XOHVVAO NAIL, 1-5 04/20/2024 31046-VEBSKHF NAIL, 1-5 07/20/2024 13930-OAXVABI NAIL, 1-5 10/19/2024 76651-SSTQ SKIN LESIONS, OVER 4 10/19/19 99241-TTJT SKIN LESIONS, OVER 4 07/20/20 57288-VBXL SKIN LESIONS, OVER 4 04/20/20 55362-AMFW SKIN LESIONS, OVER 4 11/04/19 54839-IDVQ SKIN LESIONS, OVER 4 08/23/20 23619-EXFF SKIN LESIONS, OVER 4 11/25/19 86927-YBFL SKIN LESIONS, OVER 4 06/10/20 47454-JRTM SKIN LESIONS, OVER 4 03/25/20 78403-OAAG SKIN LESIONS, OVER 4 01/08/20 24069-GAKL SKIN LESIONS, OVER 4 10/19/19 95773-IZTC SKIN LESIONS, OVER 4 07/23/20 56988-WXLA SKIN LESIONS, OVER 4 05/11/20 51125-DNZZ SKIN LESIONS, OVER 4 02/10/20 23229-HMXL SKIN LESIONS, OVER 4 12/27/19 30593-KYLC SKIN LESIONS, OVER 4 09/11/19 87382-PGAS SKIN LESIONS, OVER 4 03/10/20 78752-OFTX SKIN LESIONS, OVER 4 06/02/20 93813-WZCE SKIN LESIONS, OVER 4 08/08/20 50407-CXNW SKIN LESIONS, OVER 4 10/17/19 70847-CZOI SKIN LESIONS, OVER 4 03/14/20 70380-SZGO SKIN LESIONS, OVER 4 05/23/20 63858-NXUQ SKIN LESIONS, OVER 4 06/05/20 79035-SSLM SKIN LESIONS, OVER 4 01/11/20 73220-GHKD SKIN LESIONS, OVER 4 08/07/20 20054-KMGN SKIN LESIONS, OVER 4 11/02/19 20 26762-WCWL SKIN LESIONS, OVER 4 12/27/19 31630-TGOB SKIN LESIONS, OVER 4 03/06/20 F6084-GROHXRML DYSTROPHIC NAILS ANY # T8892-OIIQKCQC DYSTROPHIC NAILS ANY # N9709-XXQSWSBR DYSTROPHIC NAILS ANY # I9906-JHKYCUNQ DYSTROPHIC NAILS ANY # T6903-SBHWKIVZ DYSTROPHIC NAILS ANY # U0269-SWFAKELB DYSTROPHIC NAILS ANY # B6852-RELALDSU DYSTROPHIC NAILS ANY # Z9993-YPODBXBM DYSTROPHIC NAILS ANY # Z7011-MOFEAFLW DYSTROPHIC NAILS ANY # I0206-BUJUTEAW DYSTROPHIC NAILS ANY # J1605-AZTXTJTY DYSTROPHIC NAILS ANY # I3900-MDHLQXJH DYSTROPHIC NAILS ANY # P0821-IKWKHGSR DYSTROPHIC NAILS ANY # G3743-YRQIYWNS DYSTROPHIC NAILS ANY # L1915-MYUDWSAQ DYSTROPHIC NAILS ANY # O5830-URBOAOSN DYSTROPHIC NAILS ANY # B9113-FEWCSCCQ DYSTROPHIC NAILS ANY # U5772-FQHVLPMK DYSTROPHIC NAILS ANY # H1269-VUQCTGVI DYSTROPHIC NAILS ANY # A4354-EENUHIAA DYSTROPHIC NAILS ANY # D6628-PFIVSBML DYSTROPHIC NAILS ANY # M0830-IYHYKZXF DYSTROPHIC NAILS ANY # H2688-ZGQPTPBK DYSTROPHIC NAILS ANY # W7795-AWYDHVDK DYSTROPHIC NAILS ANY # H9449-UEWLHIGS DYSTROPHIC NAILS ANY # X1211-MUKLUVNW DYSTROPHIC NAILS ANY # N1649-WKDQDTKI DYSTROPHIC NAILS ANY # Next Appt Details Provider Name:Arjun Yates , 01/25/2025 10:00:00 AM, [address] [place], [address], Insurance Providers Payer Name Payer Address Payer Phone Subscriber Number Group Number Insured Name Patient Relationship to Insured Coverage Start Date Coverage End Date Medicare [employer] [address] [place] [address] [phone] [id number] DennisAllena Self - patient [facility] the [facility] [address] [place] [address] [id number] Jordana Collins Self - patient is the insured Medical (General) History Medical History History ICD Code Arthritis asthma Back,Hip,and Knee pain CAD (Cholesterol) Gout High blood pressure Kidney disease Poor circulation thyroid Vascular phlebitis (clots) Warts Joint implants/screws type II diabetes Surgical History Surgery Date(Month/Year) Jaw reconstruction 09/1981 Thyroid removed 10/25/2012 Adrenal gland 12/19/2013 stone blasted 09/20/2013 vladislav knee replacement 09/2005,06/17/21
--- OUTSIDE RECORDS SUMMARY | 2024-12-25 14:51 | XMS_ITS ---
Author Organization [facility] Address [address] [place] [address] Care Team Providers Care Director Of Residential Services Name Role Phone Mason Mccray MD Primary Care Provider Arjun Sam Unavailable [phone] Allergies Allergen (clinical drug ingredient) Drug/Non Drug Allergy documented on EMR Reaction Allergy Type Onset Date Status atorvastatin Atorvastatin Calcium headaches, myalgia Drug Allergy Active Codeine Phosphate Unknown Drug Allergy Active acetaminophen / oxycodone Percocet Unknown Drug Allergy Active pravastatin Pravastatin Sodium myalgia Drug Allergy Active Simvastatin myalgia Drug Allergy Activ e lisinopril Zestril cough Drug Allergy Active REASON FOR VISIT At Risk Footcare, Toe Irritation Medications Medication SIG (Take, Route, Frequency, Duration) Notes Start Date End Date Status tiZANidine HCl Not-T aking Tresiba 65 Not-Takin g Turmeric 450 MG as directed Orally Not-Taking NovoLOG 35 Subcutaneous before meal Not-Taking oxyBUTYnin Not-Takin g Vitamin B12 Active Vitamin D3 Active Ammonium Lactate 12 % 1 APPLICATION EXTE RNALLY TWICE A DAY 30 DAYS for 30 Active Xultophy Active Rosuvastatin Calcium 5 MG 1 tablet Orally Once a day Not-Taking Losartan Potassium 25 MG Orally Active Terazosin HCl 2 MG Orally A ctive traMADol HCl 50 MG Orally PRN Active VESIcare 10 MG Orally Activ e Synthroid 125 MCG 1 tablet on an empty stomach in the morning Orally Once a day for 30 day(s) Active Acetaminophen 500 MG 1 capsule as needed Orally every 6 hrs PRN Active Co Q 10 Active amLODIPine Besylate 2.5 MG Orally Active Gabapentin 300 MG Orally Twice a day Active Extra Depth Orthopedic Shoes (1 Pair) with Customized Heat Molded Multidensity Innersoles (3 Pair) as directed Dx: NIDDM/Polyneuropathy (E11.42), Hammertoe Foot Deformity (M20.41,M20.42), Preulcerative Skin Lesion(s) (L85.1 Active Social History Tobacco Use: Social History Observation [...] ast year? No Points 0 Interpretation Negative Vital Signs Height 5ft 4in in 10/19/2024 Weight 230 lbs 10/19/2024 BMI 39.48 kg/m2 10/19/2024 Blood pressure systolic 121 mm Hg 10/19/19 25 Blood pressure diastolic 80 mm Hg 025 Procedures Procedure Date Ordered Date Performed Result Body Sit e 02274-NEMJJWP NAIL, 1-5 10/19/2024 N/A 15498-OBUT SKIN LESIONS, OVER 4 10/19/2024 N/A [id number] DYSTROPHIC NAILS ANY # 10/19/2024 N/A Encounters Encounter Location Date Provider Diagnosis [facility] [address] [place] [address] 10/19/2024 Arjun Yates Type 2 diabetes mellitus with diabetic polyneuropathy E11.42 ; Tinea unguium B35.1 ; Other hammer toe(s) (acquired), right foot M20.41 and Other hammer toe(s) (acquired), left foot M20.42 Assessments Encounter Date Diagnosis (ICD Code) Assessment Notes Treatment Notes Treatment Clinical Notes Section Notes 10/19/2024 Type 2 diabetes mellitus with diabetic polyneuropathy (ICD-10 - E11.42) 10/19/2024 Tinea unguium (ICD-10 - B35.1) 10/19/2024 Other hammer toe(s) (acquired), right foot (ICD-10 - M20.41) Patient Educated with: DIABETIC FOOT CARE INSTRUCTIONS. pdf (DIABETIC FOOT CARE INSTRUCTIONS. pdf) 10/19/2024 Other hammer toe(s) (acquired), left foot (ICD-10 - M20.42) Plan Of Treatment Medication Medication Name Sig Start Date Stop Date Notes Extra Depth Orthopedic Shoes (1 Pair) with Customized Heat Molded Multidensity Innersoles (3 Pair) as directed Dx: NIDDM/Polyneuropathy (E11.42), Hammertoe Foot Deformity (M20.41,M20.42), Preulcerative Skin Lesion(s) (L85.1 Treatment Notes Assessment Notes Other hammer toe(s) (acquired), right fo ot Patient Educated with: DIABETIC FOOT CARE INSTRUCTIONS.pdf (DIABETIC FOOT CARE INSTRUCTIONS.pdf) Pending Test Test Name Order Date [id number] NAIL, 1-5 10/19/2024 09415-VSDM SKIN LESIONS, OVER 4 10/19/19 [id number] DYSTROPHIC NAILS ANY # Next Appt Details Follow Up: prn, Reason: Provider Name:Arjun Yates , 01/25/2025 10:00:00 AM, [address] [place] [address], [phone], Procedure Notes * Category Sub-Category Detail Notes Keratoma Treatment Parring or Cutting o f Benign Hyperkeratotic Lesion(s) (-57) More than 4 Lesions - Due to the at risk nature of the patients medical condition as documented in the exam findings, performance of this keratoderma treatment is medically necessary as its management by an unskilled/untrained nonprofessional would put this patients foot and overall health at risk. Therefore, the benign hyperkeratotic lesions, ( 6 ) in total, locations as stated and described in the exam ( Medial plantar, IPJ, TA, Medial plantar, IPJ, T5, SUB MTH (s), 1, B/L, Plantar, Heel(s), B/L ), were pared, and/or cut utilizing a sterile 15 blade, tissue nippers, and/or power dremel instrumentation by the physician of record - 04852 Debride Nails 1-5 Procedure: Due to the cli nical pathology outlined in the exam findings, performance of this nail treatment is medically necessary as its management by an unskilled/untrained nonprofessional would put this patients foot and overall health at risk. Therefore, debridement to affected nail(s), as described in exam ( T5 ), was performed exclusively by the physician of record to reduce/remove overall nail length, girth, thickness, subungual debris, and necrotic tissue, by manual and/or electrical means through the use of a nail nipper and/or dremel stylegrinder, to a more viable healthy nail plate or bed tissue 5 nails or fewer in number. Silver nitrate was used for any petechial bleeding as necessary. Definitive antifungal treatment options, both pharmaceutical and surgical, have been reviewed and discussed with the patient. The patient solely prefers the use of intermittent/as needed professional debridement services for their nail condition and understands that additional periodic treatments may be required as necessary to maintain effective symptomatic relief - 77307 Nail Reduction Nail Reduction (-27) Trimming o f all dystrophic nails - Due to the at risk nature of the patients medical condition as documented in the exam findings, performance of this nail treatment is medically necessary as its management by an unskilled/untrained nonprofessional would put this patients foot and overall health at risk. Therefore, the dystrophic nails, in locations as stated and described in the exam ( TA, T1, T2, T3, T4, T6, T7, T8, T9 ), were debrided by the phisician of record to reduce/remove overall nail length and girth, by manual and electrical means with use of a nail nipper and/or dremel, to more viable healthy nail plate or bed tissue - G0127 Progress Notes * Jordana COLLINS PDOB:[birth year] (74 yo F)Acc No.[id number]:10/19/2024 Progress Note Patient:?COLLINS, Jordana P Provider:?Arjun Yates DPM :1950???Age:74 Y???Sex:Female D ate:10/19/2024 Address:[facility] [address], [facility], [id number] Pcp:Mason Mccray MD Subjective: * Chief Complaints: * ???At Risk FootcareToe Irrit ation * HPI: ???At Risk footcare:?Pt States Last PCP Visit:?Date?06/25/2024 ???Toe pain:?Location:?B/L feet.?Duration:?several years.?Course:?worse.?Aggravated by:?shoes, any pressure.?Treatments:?change in shoes, Rx shoes, states still needs?.? * ROS:?General/Constitutional:?Nausea?denies.?Vomiting?denies.?Hunger Thirst?denies.?Loss appetite?denies.?Chills?denies.?Fatigue?denies.?Fever?denies.?Night Sweats?denies.?Unexplained weight loss?denies.?Unexplained weight gain?denies.?HEENTM:?Dentures?denies.?Dizziness?denies.?Glasses/contacts?admits.?Retinopathy?den ies.?Blurred/double vision?denies.?TMJ?denies.?Discharge/drainage?denies.?Implants?denies.?Sore throat?denies.?Dental implants?denies.?Hard of hearing ?denies.?Difficulty chewing/swallowing/speaking?denies.?Nose bleeds?denies.?Sore mouth?denies.?Respiratory:?On O xygen?denies.?Pneumonia/pleurisy?denies.?Bronchitis?denies.?Emphysema?denies.?Co ughing?denies.?Cough blood?denies.?Shortness of breath?denies.?Wheezing?denies.?Cardiovascular:?Pacemaker?denies.?MVP?denies.?WPW?denies.?CHF?denies.?Heart attack?denies.?Septal defect?denies.?Rapid beat?denies.?Chest pain ?denies.?Atrial Fib.?denies.?Murmur/Palpitations?denies.?Gastrointestinal:?Hemorrhoids?denies.?Stomach/Abdominal pain?denies.?Dark blood stool?denies.?Irritable bowel ?denies.?Constipation?denies.?Diarrhea?denies.?Hematology:?Swelling?admits.?Clots?denies.?Varicose Veins?admits.?Bruising?denies.?Bleeding problem?denies.?Genitourinary:?Blood urine?admits.?Frequent/Painfu/urination/bladder control?denies.?Kidney stones?admits.?Infection (UTI)?denies.?Nephropathy?denies.?sex trans dis (STD)?denies.?Prostate?denies.?Musculoskeletal:?Hammertoes?admits.?Bunions?admits.?Back Pain?admits.?Muscle Cramps/ Resting?denies.?Muscle cramps / walking?denies.?Generalized aches and pains?denies.?Weakness?denies.?Integ.:?Cisse?denies.?Scars?denies.?Corns/calluses?admits.?Ingrown nails?admits.?Painful nails?denies.?Open Sores?denies.?Rashes?denies.?Neurologic:?Difficulty sleeping?denies.?Brain disorder?denies.?Numbness?admits.?Balance trouble?denies.?Confusion?denies.?Fainting/blackouts?denies.?Tingling?admits, bilateral lower extremities, in the toes, that is moderate.?Tremors?denies.? * Medical History:? * Surgical History:?Jaw recons truction 09/1981Thyroid removed 10/25/2012drenal gland 12/19/2013stone blasted 09/20/2013il knee replacement 09/2005,06/17/21 * Hospitalization/Major Diagno stic Procedure:?Denies Past Hospitalization * Family History:?Mother: dece ased, diagnosed with Other malignant neoplasm of unspecified site, Diabetic - NIDDM, Unspecified essential hypertension.?Father: , diagnosed with Other malignant neoplasm of unspecified site, Diabetic - NIDDM, Unspecified essential hypertension.?Maternal Grand Mother: diagnosed with Unspecified cerebral artery occlusion with cerebral infarction.?1 daughter(s) . .? * Social History:?Tobacco Use:?Tobacco use other than smoking?Are you an other tobacco user??No ?Tobacco Control (Standard)?Tobacco use:?Nonsmoker ?Additional Findings: Tobacco non-user?Current nonsmoker ???Drugs/Alcohol:?Drugs?Have you used drugs other than those for medical reasons in the past 12 months??No ???Miscellaneous:?Caffeine: yes, frequency:, 2 cups per day. ?Children: yes. ?Exercise: no. ?Marital status: . ?Occupation: Retired-[employer]. ???Drug/Alcohol:?AUDIT-C (Standard)?Did you have a drink containing alcohol in the past year??No ?Points?0 ?Interpretation?Negative * Medications:?TakingAcetamino phen 500 MG Capsule 1 capsule as needed Orally every 6 hrs , Notes to Pharmacist: PRNamLODIPine Besylate 2.5 MG Tablet Orally Co Q 10 Gabapentin 300 MG Capsule Orally Twice a day Losartan Potassium 25 MG Tablet Orally traMADol HCl 50 MG Tablet Orally PRN Terazosin HCl 2 MG Capsule Orally Synthroid 125 MCG Tablet 1 tablet on an empty stomach in the morning Orally Once a day VESIcare 10 MG Tablet Orally Vitamin D3 Vitamin B12 Xultophy Ammonium Lactate 12 % Cream 1 APPLICATION EXTERNALLY TWICE A DAY 30 DAYS Extra Depth Orthopedic Shoes (1 Pair) with Customized Heat Molded Multidensity Innersoles (3 Pair) as directed Dx: NIDDM/Polyneuropathy (E11.42), Hammertoe Foot Deformity (M20.41,M20.42), Preulcerative Skin Lesion(s) (L85.1 Taking Acetaminophen 500 MG Capsule 1 capsule as needed Orally every 6 hrs , Notes to Pharmacist: PRNTaking amLODIPine Besylate 2.5 MG Tablet Orally Taking Co Q 10 Taking Gabapentin 300 MG Capsule Orally Twice a day Taking Losartan Potassium 25 MG Tablet Orally Taking traMADol HCl 50 MG Tablet Orally PRN Taking Terazosin HCl 2 MG Capsule Orally Taking Synthroid 125 MCG Tablet 1 tablet on an empty stomach in the morning Orally Once a day Taking VESIcare 10 MG Tablet Orally Taking Vitamin D3 Taking Vitamin B12 Taking Xultophy Taking Ammonium Lactate 12 % Cream 1 APPLICATION EXTERNALLY TWICE A DAY 30 DAYS Taking Extra Depth Orthopedic Shoes (1 Pair) with Customized Heat Molded Multidensity Innersoles (3 Pair) as directed Dx: NIDDM/Polyneuropathy (E11.42), Hammertoe Foot Deformity (M20.41,M20.42), Preulcerative Skin Lesion(s) (L85.1 Not-Taking/PRNRosuvastatin Calcium 5 MG Tablet 1 tablet Orally Once a day Tresiba 65 tiZANidine HCl NovoLOG 35 Subcutaneous before meal Turmeric 450 MG Capsule as directed Orally oxyBUTYnin Medication List reviewed and reconciled with the patientNot-Taking/PRN Rosuvastatin Calcium 5 MG Tablet 1 tablet Orally Once a day Not-Taking/PRN Tresiba 65 Not-Taking/PRN tiZANidine HCl Not-Taking/PRN NovoLOG 35 Subcutaneous before meal Not-Taking/PRN Turmeric 450 MG Capsule as directed Orally Not-Taking/PRN oxyBUTYnin Medication List reviewed and reconciled with the patient * Allergies:?Codeine Phosphate PercocetZestril: coughSimvastatin: myalgiaPravastatin Sodium: myalgiaAtorvastatin Calcium: headaches, myalgiayes[Allergies Verified] Objective: * Vitals:?Ht: 5ft 4in, Wt:230, BMI: 39.48, Shoe size:10-10.5, BP:121/80mm Hg, BS:112, Ht-cm: 162.56 cm, Wt-k.33 kg. * ???Past Orders: ???Lab:HEMOGLOBIN A1C (GLYCO HEMOGLOBIN) (Order Date - 12/05/2023) (Collection Date & Time - 12/05/2023) ? Value Reference Range ?HEMOGLOBIN A1C % (HH) 5.9 * Examination: ???Ophthalmology Referral: ?DIABETES EYE EXAM?Procedure Performed:?Yes ?Date of Exam Performed?08/07/2024 ?Diabetic Retinopathy Screening:?Yes ?Retinal Screening Performed:?Yes ?Findings of Diabetic Eye Exam:?no retinopathy?Neurological: ?SENSORY:? Neurological exam demonstrates, reduced light touch sensation, reduced sharp/dull discrimination, reduced vibration sensation, in a stocking fashion, B/L, 5.07 monofilament test performed at plantar aspects of 5 varied sites per foot shows sensation, reduced, B/L, Pt relates, tingling, Forefoot, B/L.?Nails: ?NAILS are:?Elongated, overgrown, dystrophic, lytic, greater than 3mm thick, discolored and friable with crumbly malodorous subungual debris, T5, all other nails not described with characteristics as possessing mycosis are elongated, overgrown, and dystrophic ( TA, T1, T2, T3, T4, T6, T7, T8, T9?).?Dermatologic: ?SKIN FINDINGS:?Skin exam reveals Keratotic lesion(s) located at, Medial plantar, IPJ, TA, Medial plantar, IPJ, T5, SUB MTH (s), 1, B/L, Plantar, Heel(s), B/L.?Orthopedic: ?MUSCLE STRENGTH:?5/5 all groups in a symmetrical fashion , B/L.?FOOT MORPHOLOGY:? Pes Planus structure, No Charcot collapse/destruction noted at MTJ.?DIGITAL DEFORMITIES:?Digital contracture, PIPJ, 2-5 B/L, incompl-reducible to push-up test, no over, nor underlapping,?there is?evidence of shoe producing skin irritation.?FOOTWEAR:?worn, OT were inspected and noted to be severely worn , in poor condition not giving proper support at the present time , shoe gear properties exacerbate patient's foot/toe deformity.?Vascular: ?DP PULSES (B):? 1, B/L.?PT PULSES (B):? 09/08, B/L.?CAPILLARY FILL TIME:? 3 secs. per digit, B/L.?TROPHIC CONDITION-TEXTURE/ELASTICITY/TURGOR/HAIR GROWTH (B):?normal, B/L.?TEMPERTURE GRADIENT (C):?normal, warm to cool, proximal to distal, B/L, B/L.?PIGMENTATION:?normal, B/L.?EDEMA (C):? 09/08, non-pitting, without aching pain, B/L, Leg(s), Ankle(s).?General Examination: ?GENERAL APPEARANCE:?Reveals a pleasant, alert, well nourished, well developed, well hydrated individual, who demonstrates proper attention to hygiene/body habitus, and is in no acute distress , Pt serves as own historian for office visit today.?ORIENTED:?person, place, and time.?FOOT EXAM:?Lower Extremity Neurological Exam performed:?Yes ?Visual exam of foot performed:?Yes ?Date?10/19/2024 ?Footwear Evaluation?Footwear Evaluation performed:?Yes??? Assessment: * Assessment: 1.?Tinea unguium - B35.1???2 .?Type 2 diabetes mellitus with diabetic polyneuropathy - E11.42 (Primary)???3.?Other hammer toe(s) (acquired), right foot - M20.41???Specify :Chronic problem, Worse (4),Rx Management (4)???4.?Other hammer toe(s) (acquired), left foot - M20.42???Specify :Chronic problem, Worse (4),Rx Management (4)??? Plan: * Treatment: 2.?Other hammer toe(s) (acqu ired), right foot? Start Extra Depth Orthopedic Shoes (1 Pair) with Customized Heat Molded Multidensity Innersoles (3 Pair), as directed, Dx: NIDDM/Polyneuropathy (E11.42), Hammertoe Foot Deformity (M20.41,M20.42), Preulcerative Skin Lesion(s) (L85.1, 1, Refills 0.?? Notes: Patient Educated with: DIABETIC FOOT CARE INSTRUCTIONS.pdf (DIABETIC FOOT CARE INSTRUCTIONS.pdf)?? * Procedures:?Debride Nails 1-5:?Procedure:?Due to the clinical pathology outlined in the exam findings, performance of this nail treatment is medically necessary as its management by an unskilled/untrained nonprofessional would put this patients foot and overall health at risk. Therefore, debridement to affected nail(s), as described in exam ( T5 ), was performed exclusively by the physician of record to reduce/remove overall nail length, girth, thickness, subungual debris, and necrotic tissue, by manual and/or electrical means through the use of a nail nipper and/or dremel stylegrinder, to a more viable healthy nail plate or bed tissue 5 nails or fewer in number. Silver nitrate was used for any petechial bleeding as necessary. Definitive antifungal treatment options, both pharmaceutical and surgical, have been reviewed and discussed with the patient. The patient solely prefers the use of intermittent/as needed professional debridement services for their nail condition and understands that additional periodic treatments may be required as necessary to maintain effective symptomatic relief - 66230.?Keratoma Treatment:?Parring or Cutting of Benign Hyperkeratotic Lesion(s)?(-57) More than 4 Lesions - Due to the at risk nature of the patients medical condition as documented in the exam findings, performance of this keratoderma treatment is medically necessary as its management by an unskilled/untrained nonprofessional would put this patients foot and overall health at risk. Therefore, the benign hyperkeratotic lesions, ( 6 ) in total, locations as stated and described in the exam (?Medial plantar,?IPJ,?TA,?Medial plantar,?IPJ,?T5,?SUB MTH (s),?1,?B/L,?Plantar,?Heel(s),?B/L?), were pared, and/or cut utilizing a sterile 15 blade, tissue nippers, and/or power dremel instrumentation by the physician of record - 49471.?Nail Reduction:?Nail Reduction?(-27) Trimming of all dystrophic nails - Due to the at risk nature of the patients medical condition as documented in the exam findings, performance of this nail treatment is medically necessary as its management by an unskilled/untrained nonprofessional would put this patients foot and overall health at risk. Therefore, the dystrophic nails, in locations as stated and described in the exam (??TA, T1, T2, T3, T4, T6, T7, T8, T9?), were debrided by the phisician of record to reduce/remove overall nail length and girth, by manual and electrical means with use of a nail nipper and/or dremel, to more viable healthy nail plate or bed tissue - G0127.? * Procedure Codes:?G0127 ARLENE ING DYSTROPHIC NAILS ANY #, Modifiers: XS 03262 DEBRIDE NAIL, 1-5, Modifiers: XS 48178 TRIM SKIN LESIONS, OVER 4, Modifiers: XS * Preventive Medicine:? ??Counseling:?Discussion:?-14: Office or other outpatient visit for the evaluation and management of an established patient, which required a medically appropriate history and/or examination and MODERATE level of DECISION MAKING for: 1 OR MORE CHRONIC PROBLEM(S) THATS WORSENING, 2 STABLE CHRONIC PROBLEMS, A NEWLY DIAGNOSED PROBLEM WITH UNCERTAIN PROGNOSIS, AN ACUTE COMPLICATED INJURY WITH MULTIPLE TREATMENT OPTIONS, OR AN ACUTE PROBLEM WITH ACCOMPANYING SYSTEMIC SYMPTOMS, THAT POSE(S) A MODERATE RISK OF MORBIDITY. THIS CONDITION MAY ALSO INCLUDE RX DRUG MANAGEMENT, OR A DECISON FOR MINOR SURGERY. The visit on the day of the encounter encompassed interpreting the data and educating the patient as to the nature of their condition, treatment options available according to their individual PMH, meds, allergies, and overall health/living conditions, as well as any potential risks or complications that may occur from a failure to adhere to, and participate in, the recommended course of therapy. The discussion included a complete verbal, and/or written explanation of the examination results, any x-rays taken, the proposed diagnosis, and outline of the treatment plan. A schedule for future care needs was also explained. The patient verbalized an understanding of the instructions at this time and agreed to be an active participant in their treatment. If the patient should think of any questions or concerns after the visit, I have encouraged the patient to call the office.?Digital Surgery:?Digital surgery was discussed with the patient, We elected to try conservative treatment at the present time, due to the patients medical history and increased asssociated post-operative risks.?Digital Treatment:?HT- I explained to the patient the possible etiologies of Hammertoes, including genetics/foot type/shoegear/activity level/exercise routine and the risks/benefits of all the different treatment options for their pain including: No treatment at all, Rest, Ice, New/supportive/wider/deeper Shoegear, Digital Padding/Strapping/Taping/Bracing/Gel protective sleeves, Foot/Ankle AFO Bracing, Stretching exercises, Deep Tissue Massage, Arch support/shoe inserts with splay metatarsal padding, and Custom orthoses. I insisted that any digital devices be removed daily and not worn overnight for safety. The patient is to carefully examine the toes daily for any skin irritation while using any splinting or padding device. The advantages and disadvantages of each option were discussed and the patients questions re: shoegear, padding, custom vs prefabricated inserts, activity level, and consistency in home treatment regimens for optimal success were answered to their verbally confirmed satisfaction.?Shoe Gear Counseling:?SHOE Rx - The patient was counseled in great detail on their muscoloskeletal foot and toe deformities which coincided with the dermatological presentations visualized on exam. We discussed how their deformities put the integrity of their feet at risk for potential pedal complications which makes the accomidative diabetic shoes and cutomizable inserts medically necessary. We discussed the different shoe and insert treatment types and options, as well as the important advantages for adhering to regularly wearing these accomidative devices daily. The patient was made aware of the fact that a failure to abide by these recommedations may be deleterious to their foot health as they are able to prevent many pedal complications such as skin irritation, skin ulceration, infection, and even loss of toe/foot/leg/or life. Time was also spent with the patient dispensing and discussing proper diabetic footcare techniques including daily skin moisturization, daily foot inspection for any interruption in skin integrity including open lesions, or sign of infection such as redness/malodor/drainage/swelling. Also discussed and recommended were procedures regarding daily shoe inspection for the presence of internal foreign bodies as well as any visualized irregular shoe or insert wear. Patient questions re: shoes, inserts, and self foot inspections were answered to their satisfaction as the patient verbally confirmed a full understanding of the above information. A Rx for Extra Depth Orthopedic Shoes with 3 pair of custom heat-molded inserts was dispensed.? ??Screening/Special Tests:?Fall Risk?Screening:?No falls in the past year ?FALLS: Screening for Future Fall Risk?Have you had any falls with injury in the past year??No * Follow Up:?prn * Images: * Sign off status: Completed true * Provider:?Arjun Yates DPM Date:?2024 Generated for Cassia mckinney/Bari/iFnaitting on:?12/25/2024 02:51 PM EDT History and Physical Notes * HPI (History of Present Illness) Category Sub-Category Detail Notes Category Not es Toe pain Location: B/L feet Duration: several years Course: worse Aggravated by: shoes, any pressure Treatments: change in shoes, Rx shoes, states still needs At Risk footcare Pt States Last PCP Visit: Date: 4 Examination Category Sub-Category Detail Notes Category Not es Neurological SENSORY: Neurological exa m demonstrates, reduced light touch sensation, reduced sharp/dull discrimination, reduced vibration sensation, in a stocking fashion, B/L, 5.07 monofilament test performed at plantar aspects of 5 varied sites per foot shows sensation, reduced, B/L, Pt relates, tingling, Forefoot, B/L Dermatologic SKIN FINDINGS: Skin exam reveal s Keratotic lesion(s) located at, Medial plantar, IPJ, TA, Medial plantar, IPJ, T5, SUB MTH (s), 1, B/L, Plantar, Heel(s), B/L Orthopedic FOOT MORPHOLOGY: Pes Planus stru cture, No Charcot collapse/destruction noted at MTJ FOOTWEAR EVALUATION: worn, OT were inspe cted and noted to be severely worn , in poor condition not giving proper support at the present time , shoe gear properties exacerbate patient's foot/toe deformity DIGITAL DEFORMITIES: Digital contracture , PIPJ, 2-5 B/L, incompl-reducible to push-up test, no over, nor underlapping, there is evidence of shoe producing skin irritation MUSCLE STRENGTH: 5/5 all groups in a symmetrical fashion , B/L General Examination GENERAL APPEARANCE: Reveals a pleasant, alert, well nourished, well developed, well hydrated individual, who demonstrates proper attention to hygiene/body habitus, and is in no acute distress , Pt serves as own historian for office visit today FOOT EXAM: Lower Extremity Neurological Exa m performed:: Yes Visual exam of foot performed:: Yes Date: 10/19/2024 ORIENTED: person, place, and t shady Footwear Evaluation Footwear Evaluation performe d:: Yes Ophthalmology Referral DIABETES EYE EXAM Procedure Perform ed:: Yes ?Date of Exam Performed: 08/07/2024 Diabetic Retinopathy Screening:: Yes Retinal Screening Performed:: Yes Findings of Diabetic Eye Exam:: no retin opathy Vascular DP PULSES (B): 1/4, B/L PT PULSES (B): 1/4, B/L CAPILLARY FILL TIME: 3 secs. per digit, B/L TEMPERTURE GRADIENT (C): normal, warm to cool, proximal to distal, B/L, B/L TROPHIC CONDITION-TEXTURE/ELASTICITY/TURGOR/HAIR GROWTH (B): normal, B/L EDEMA (C): 1/4, non-pitting, wi thout aching pain, B/L, Leg(s), Ankle(s) PIGMENTATION: normal, B/L Nails NAILS are: Elongated, overg rown, dystrophic, lytic, greater than 3mm thick, discolored and friable with crumbly malodorous subungual debris, T5, all other nails not described with characteristics as possessing mycosis are elongated, overgrown, and dystrophic ( TA, T1, T2, T3, T4, T6, T7, T8, T9 )
--- OUTSIDE RECORDS SUMMARY | 2024-12-25 14:52 | XMS_ITS ---
[facility] Address [address] [place] [address] Care Team Providers Care Casing Soaker Name Role Phone Mason Mccray MD Primary Care Provider Arjun Sam Unavailable [phone] Allergies Allergen (clinical drug ingredient) Drug/Non Drug [...] Duration) Notes Start Date End Date Status amLODIPine Besylate 2.5 MG Orally Active Co Q 10 Active Gabapentin 300 MG Orally Twice a day Active oxyBUTYnin Not-Takin g Acetaminophen 500 MG 1 capsule as needed Orally every 6 hrs PRN Active Tresiba 65 Not-Takin g Turmeric 450 MG as directed Orally Not-Taking Extra Depth Orthopedic Shoes (1 Pair) with Customized Heat Molded Multidensity Innersoles (3 Pair) as directed Dx: NIDDM/Polyneuropathy (E11.42), Hammertoe Foot Deformity (M20.41,M20.42), Preulcerative Skin Lesion(s) (L85.1 07/20/2024 Active tiZANidine HCl Not-T aking NovoLOG 35 Subcutaneous before meal Not-Taking Ammonium Lactate 12 % 1 APPLICATION EXTE RNALLY TWICE A DAY 30 DAYS for 30 Active Rosuvastatin Calcium 5 MG 1 tablet Orally Once a day Not-Taking Vitamin B12 Active Xultophy Active Vitamin D3 Active Terazosin HCl 2 MG Orally A ctive Synthroid 125 MCG 1 tablet on an empty stomach in the morning Orally Once a day for 30 day(s) Active Losartan Potassium 25 MG Orally Active traMADol HCl 50 MG Orally PRN Active VESIcare 10 MG Orally Activ e Social History Tobacco Use: Social History Observation Description Date Details (start date - stop date) Former Smoker NA - NA Tobacco Use/Smoking Question Answer Notes Are you a: former smoker Additional Findings: Tobacco Non-User Current no n-smoker Alcohol Screen Question Answer Notes Did you have a drink containing alcohol in the p ast year? No Points 0 Interpretation Negative Tobacco use other than smoking: Question Answer Notes Are you an other tobacco user? No Vital Signs Height 5ft 4in in 07/20/2024 Weight 230 lbs 07/20/2024 BMI 39.48 kg/m2 07/20/2024 Blood pressure systolic 130 mm Hg 07/20/20 24 Blood pressure diastolic 70 mm Hg 024 Procedures Procedure Date Ordered Date Performed Result Body Sit e 98845-TVIYJQD NAIL, 1-5 07/20/2024 N/A 18183-WHBS SKIN LESIONS, OVER 4 07/20/2024 N/A [id number]-[id number] DYSTROPHIC NAILS ANY # 07/20/2024 N/A Encounters Encounter Location Date Provider Diagnosis [facility] [place] [address] [place] [address] 07/20/2024 Arjun Yates Type 2 diabetes mellitus with diabetic polyneuropathy E11.42 ; Tinea unguium B35.1 ; Other hammer toe(s) (acquired), right foot M20.41 and Other hammer toe(s) (acquired), left foot M20.42 Assessments Encounter Date Diagnosis (ICD Code) Assessment Notes Treatment Notes Treatment Clinical Notes Section Notes 07/20/2024 Type 2 diabetes mellitus with diabetic polyneuropathy (ICD-10 - E11.42) 07/20/2024 Tinea unguium (ICD-10 - B35.1) 07/20/2024 Other hammer toe(s) (acquired), right foot (ICD-10 - M20.41) Patient Educated with: DIABETIC FOOT CARE INSTRUCTIONS. pdf (DIABETIC FOOT CARE INSTRUCTIONS. pdf) 07/20/2024 Other hammer toe(s) (acquired), left foot (ICD-10 - M20.42) Plan Of Treatment Medication Medication Name Sig Start Date Stop Date Notes Extra Depth Orthopedic Shoes (1 Pair) with Customized Heat Molded Multidensity Innersoles (3 Pair) as directed Dx: NIDDM/Polyneuropathy (E11.42), Hammertoe Foot Deformity (M20.41,M20.42), Preulcerative Skin Lesion(s) (L85.1 07/20/2024 Treatment Notes Assessment Notes Other hammer toe(s) (acquired), right fo ot Patient Educated with: DIABETIC FOOT CARE INSTRUCTIONS.pdf (DIABETIC FOOT CARE INSTRUCTIONS.pdf) Pending Test Test Name Order Date [id number] NAIL, 1-5 07/20/2024 53566-XPYT SKIN LESIONS, OVER 4 07/20/20 24 [id number]-ZPTOZBBF DYSTROPHIC NAILS ANY # Next Appt Details Follow Up: prn, Reason: Provider Name:Arjun Yates , 01/25/2025 10:00:00 AM, [address] [place] [address], [phone], Procedure Notes * Category Sub-Category Detail Notes Keratoma Treatment Parring or Cutting o f Benign Hyperkeratotic Lesion(s) (-57) More than 4 Lesions - The Benign hyperkeratotic lesions, as described in exam, were pared, and/or cut utilizing a sterile 15 blade, tissue nippers, and/or dremel - 60354 Debride Nails 1-5 Procedure: Performance of this nail treatment by a nonprofessional would put this patients foot and overall health at risk. Therefore, debridement to affected nail(s), as described in exam, was performed extensively to reduce/remove overall nail length, girth, thickness, subungual debris, and necrotic tissue, by manual and/or electrical means through the use of a nail nipper and/or dremel-type card grinder helper, to a more viable healthy nail plate or bed tissue 1-5. Silver nitrate used for any petechial bleeding as necessary. Definitive antifungal treatment options have been reviewed and discussed with the patient. The patient chooses, no pharmaceutical tx - 21958 Nail Reduction Nail Reduction (-27) Trimming o f dystrophic nails, as described in exam, was performed to reduce/remove overall nail length and girth, by manual and electrical means with use of a nail nipper and/or dremel, to more viable healthy nail plate or bed tissue, any number - G0127 Progress Notes * Jordana COLLINS PDOB:[birth year] (74 yo F)Acc No.[id number]:07/20/2024 Progress Note Patient:?Jordana COLLINS P Provider:?Arjun Yates DPM :1950???Age:74 Y???Sex:Female D ate:07/20/2024 Address:[address] [place] [address] , [facility], [facility], [id number] Pcp:Mason Mccray MD Subjective: * Chief Complaints: * ???At Risk FootcareToe Irrit ation * HPI: ???At Risk footcare:?Pt States Last PCP Visit:?Date?06/25/2024 ???Toe pain:?Location:?B/L feet.?Duration:?several years.?Course:?worse.?Aggravated by:?shoes, any pressure.?Treatments:?change in shoes.? * ROS:?General/Constitutional:?Nausea?denies.?Vomiting?denies.?Hunger Thirst?denies.?Loss appetite?denies.?Chills?denies.?Fatigue?denies.?Fever?denies.?Night Sweats?denies.?Unexplained weight loss?denies.?Unexplained weight gain?denies.?HEENTM:?Dentures?denies.?Dizziness?denies.?Glasses/contacts?admits.?Retinopathy?de nies.?Blurred/double vision?denies.?TMJ?denies.?Discharge/drainage?denies.?Implants?denies.?Sore throat?denies.?Dental implants?denies.?Hard of hearing ?denies.?Difficulty chewing/swallowing/speaking?denies.?Nose bleeds?denies.?Sore mouth?denies.?Respiratory:?On Oxygen?denies.?Pneumonia/pleurisy?denies.?Bronchitis?denies.?Emphysema?denies.?C oughing?denies.?Cough blood?denies.?Shortness of breath?denies.?Wheezing?denies.?Cardiovascular:?Pacemaker?denies.?MVP?denies.?WPW?denies.?CHF?denies.?Heart attack?denies.?Septal defect?denies.?Rapid beat?denies.?Chest pain [...] daughter(s) . .? * Social History:?Tobacco Use:?Tobacco Use/Smoking?Are you a:?former smoker ?Additional Findings: Tobacco Non-User?Current non-smoker ?Tobacco use other than smoking?Are you an other tobacco user??No ???Drugs/Alcohol:?Drugs?Have you used drugs other than those for medical reasons in the past 12 months??No ?Alcohol Screen?Did you have a drink containing alcohol in the past year??No ?Points?0 ?Interpretation?Negative ???Miscellaneous:?Caffeine: yes, frequency:, 2 cups per day. ?Children: yes. ?Exercise: no. ?Marital status: . 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 * Medications:?TakingAcetamino phen 500 MG Capsule 1 [...] EXTERNALLY TWICE A DAY 30 DAYS Taking Acetaminophen 500 MG Capsule 1 capsule [...] APPLICATION EXTERNALLY TWICE A DAY 30 DAYS Not-Taking/PRNRosuvastatin Calcium 5 MG Tablet 1 tablet [...] 5ft 4in, Wt:230, BMI: 39.48, Shoe size:10-10.5, BP:130/70mm Hg, BS:108, Ht-cm: 162.56 cm, Wt-k.33 kg. * ???Past Orders: ???Lab:HEMOGLOBIN A1C (GLYCO HEMOGLOBIN) (Order Date - 12/05/2023) (Collection Date & Time - 12/05/2023) ? Value Reference Range ?HEMOGLOBIN A1C % (HH) 5.9 * Examination: ???Neurological: ?SENSORY:? Neurological exam demonstrates, reduced light touch sensation, reduced sharp/dull discrimination, reduced vibration sensation, in a stocking fashion, B/L, 5.07 monofilament test performed at plantar aspects of 5 varied sites per foot shows sensation, reduced, B/L, Pt relates, tingling, Forefoot, B/L.?Nails: ?NAILS are:?Elongated, overgrown, dystrophic, lytic, greater than 3mm thick, discolored and friable with crumbly malodorous subungual debris, T5, remaining nails are elongated, overgrown, dystrophic.?Dermatologic: ?SKIN FINDINGS:?Skin exam reveals Keratotic lesion(s) located [...] gear properties exacerbate patient's foot/toe deformity.?Vascular: ?DP PULSES(B):? 1/4, B/L.?PT PULSES(B):? 1/4, B/L.?CAPILLARY FILL TIME:? 3 secs. per digit, B/L.?TROPHIC CONDITION-TEXTURE/ELASTICITY/TURGOR/HAIR GROWTH(B):?normal, B/L.?TEMPERTURE GRADIENT(C):?normal, warm to cool, proximal to distal, B/L, B/L.?PIGMENTATION:?normal, B/L.?EDEMA(C):? 1/, non-pitting, without aching pain, B/L, Leg(s), Ankle(s).?Ophthalmology Referral: ?DIABETES EYE EXAM?Diabetic Retinopathy Screening:?Yes ?Retinal Screening Performed:?Yes ?Findings of Diabetic Eye Exam:?no retinopathy?General Examination: ?GENERAL APPEARANCE:?Reveals a pleasant, alert, well nourished, well developed, well hydrated individual, who demonstrates proper attention to hygiene/body habitus, and is in no acute distress , Pt serves as own historian for office visit today.?ORIENTED:?person, place, and time.?FOOT EXAM:?Lower Extremity Neurological Exam performed:?Yes ?Footwear Evaluation?Footwear Evaluation performed:?Yes??? Assessment: * Assessment: [...] (DIABETIC FOOT CARE INSTRUCTIONS.pdf)?? * Procedures:?Debride Nails 1-5:?Procedure:?Performance of this nail treatment by a nonprofessional would put this patients foot and overall health at risk. Therefore, debridement to affected nail(s), as described in exam, was performed extensively to reduce/remove overall nail length, girth, thickness, subungual debris, and necrotic tissue, by manual and/or electrical means through the use of a nail nipper and/or dremel-type card grinder helper, to a more viable healthy nail plate or bed tissue 1-5. Silver nitrate used for any petechial bleeding as necessary. Definitive antifungal treatment options have been reviewed and discussed with the patient. The patient chooses, no pharmaceutical tx - [id number].?Keratoma Treatment:?Parring or Cutting of Benign Hyperkeratotic Lesion(s)?(-57) More than 4 Lesions - The Benign hyperkeratotic lesions, as described in exam, were pared, and/or cut utilizing a sterile 15 blade, tissue nippers, and/or dremel - 01745.?Nail Reduction:?Nail Reduction?(-27) Trimming of dystrophic nails, as described in exam, was performed to reduce/remove overall nail length and girth, by manual and electrical means with use of a nail nipper and/or dremel, to more viable healthy nail plate or bed tissue, any number - G0127.? * Procedure Codes:?G0127 ARLENE ING DYSTROPHIC NAILS ANY #, Modifiers: XS 59852 DEBRIDE NAIL, 1-5, Modifiers: XS 93696 TRIM SKIN LESIONS, OVER 4, Modifiers: XS * Preventive Medicine:? ??Counseling:?BMI Care goal follow-up plan:?BMI counseling provided to patient:?Lifestyle education ?Discussion:?-14: Office or other outpatient visit for the [...] custom heat-molded inserts was dispensed.? ??Screening/Special Tests:?Fall Risk?Assessment:?Performed ?Plan of Care:?Documented ?Screening:?No falls in the past year ?FALLS: Screening for Future Fall Risk?Have you had any falls with injury in the past year??No * Follow Up:?prn * Images: * Sign off status: Completed true * Provider:?Arjun Yates DPM Date:?2023 Generated for Cassia mckinney/Bari/Rudy on:?12/25/2024 02:52 PM EDT History and Physical Notes * HPI (History of Present Illness) Category Sub-Category Detail Notes Category Not es Toe pain Location: B/L feet Duration: several years Course: worse Aggravated by: shoes, any pressure Treatments: change in shoes At Risk footcare Pt States Last PCP [...] Lower Extremity Neurological Exa m performed:: Yes ORIENTED: person, place, and t shady Footwear Evaluation Footwear Evaluation performe d:: Yes Ophthalmology Referral DIABETES EYE EXAM Diabetic Retinopa thy Screening:: Yes Retinal Screening Performed:: Yes Findings [...] friable with crumbly malodorous subungual debris, T5, remaining nails are elongated, overgrown, dystrophic
--- OUTSIDE RECORDS SUMMARY | 2024-12-25 14:52 | XMS_ITS | Clinical Summary ---
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 Name Role Phone Mason Mccray MD Primary Care Provider Allergies Active Allergy Reactions Criticality Noted Date Comments Codeine Other (see comments) 02/09/2022 Lisinopril Other (see comments) 09/27/2017 Oxycodone-Aspirin Other (see comments) ,Nausea And Vomiting 03/02/2021 Oxycodone-Acetaminophen Other (see comments) Statins Other (see comments) 09/27/2017 Medications GLUCOSAMINE-CHO NDROITIN PO Take by mouth every 6 (six) months Active acetaminophen (TYLENOL 8 HOUR) 650 MG 8 hr tablet Active ammonium lactate (AMLACTIN) 12 % cream Apply 1 application topically if needed 9 Active gabapentin (NEURONTIN) 300 MG capsule Take 1 capsule by mouth at bed time 0 Active levothyroxine (SYNTHROID, LEVOTHROID) 125 MCG tablet 1 TABLET DAILY AND TAKE 1.5 TABLETS ON SUNDAYS(SYNTHROI D- NAME BRAND ONLY) 0 Active traMADol (ULTRAM) 50 MG tablet TAKE 1 TABLET BY MOUTH EVERY 6 HOURS NEEDED FOR PAIN 0 Active terazosin (HYTRIN) 5 MG capsule 0 Active Melatonin 10 MG capsule Take by mouth Active amLODIPine (NORVASC) 5 MG tablet Take 5 mg by mouth 1 (one) time each day 1 Active diazePAM (VALIUM) 5 MG tablet TAKE 1 TABLET BY MOUTH PRIOR TO PROCEDURE 1 Active Xultophy 100-3.6 UNIT-MG/ML solution pen-injector 50 Units 1 (one) time each day 1 Active cyanocobalamin (VITAMIN B-12) 100 MCG tablet Take 1,000 mg by mouth Active cholecalciferol (VITAMIN D-3 SUPER STRENGTH) 50 MCG (2000 UT) tablet Take 2,000 Units by mouth daily Active senna (SENOKOT) 8.6 MG tablet Take 1 tablet by mouth at night if needed Active Pitavastatin Calcium (Livalo) 1 MG tablet Take by mouth Active losartan (COZAAR) 25 MG tablet TAKE 1 TABLET BY MOUTH EVERY DAY 90 tablet 4 3 Active Active Problems Problem Noted Date Diagnosed Date Carotid artery stenosis 05/01/2024 Peripheral vascular disease 05/01/2024 Chronic kidney disease, stage 4 (severe) 023 Obstructive nephropathy 08/22/2023 Other hydronephrosis 08/22/2023 Proteinuria, not otherwise specified 08/22/2023 Peripheral arterial occlusive disease 08/22/2023 Secondary hyperparathyroidism 08/22/2023 H/O: major abdominal surgery 04/20/2022 History of total thyroidectomy 04/20/2022 Hypertension 01/14/2021 Morbid obesity 01/14/2021 Renal stone 01/14/2021 Vesicoureteric reflux 01/14/2021 Body mass index 30+ - obesity 01/11/2019 Overview (03/02/2021): Last Assessment & Plan: Jordana has lost significant weight on weight watchers She is encouraged to continue with healthy lifestyle Advised that with weight loss and increased activity she will improve insulin sensitivity and require less insulin Dyslipidemia 09/30/2017 Overview (03/02/2021): Last Assessment & Plan: Intolerant of statin therapy Has upcoming routine labs including lipid panel Spinal stenosis 09/30/2017 Diabetes mellitus, not otherwise specified 09/22 Overview (03/02/2021): Last Assessment & Plan: Currently on higher dose of Tresiba however FPG are consistently above target We discussed trial of Victoza, this will not negatively impact renal function and will hopefully help optimize blood sugars without need for further insulin increase Victoza may have benefits for weight management whereas it's very likely that further increase in insulin therapy will lead to weight gain If Jordana tolerates Victoza well then the combination, Xultophy, may be an option which improves convenience and is more cost effective Encouraged to be more active, we discussed chair exercises which will lead to less pain than weight bearing exercises We will check in with Jordana in one week to see how she is doing, we will follow up in the office in 4 months; Jordana is encouraged to contact me with any questions or concerns Resolved Problems Problem Noted Date Diagnosed Date Resolved Date Chronic kidney disease stage 3 01/14/2021 06/10/2021 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 Unclear what caused the inflammation but the swelling is apparent as is moderate loss of function. Patient referred to Dr. Flanagan for further evaluation, for now cold packs to take down swelling and Capzasin glue stick to treat topically. Temporary use of nonsteroidals acceptable. Pure hypercholesterolemia 04/05/2018 Overview (03/02/2021): Last Assessment & Plan: Intolerant of multiple statin medications LDL above goal May be a candidate for PCSK9 class which is likely to be better tolerated Encounters Date Type Department Care Team Description 11/01/2024 Orders Only [facility].. [address] [place] [phone] Kevon Powers MD Chronic kidney disease, stage 4 (severe) (HCC); Proteinuria, not otherwise specified; Secondary hyperparathyroidism (HCC); Hypertension; Obstructive nephropathy; Dyslipidemia 10/31/2024 10:40 AM EST Office Visit [facility] [address] [phone] Kevon Powers MD Chronic kidney disease, stage 4 (severe) (HCC) (Primary Dx); Diabetes mellitus, not otherwise specified (HCC); Obstructive nephropathy; Other hydronephrosis; Proteinuria, not otherwise specified; Secondary hyperparathyroidism (HCC); Vesicoureteric reflux; Peripheral arterial occlusive disease (HCC); Dyslipidemia 10/31/2024 Office Communication [facility] [address] [phone] Kevon Powers MD 10/31/2024 Office Communication [facility] [address] [phone] Kevon Powers MD from Last 3 Months Immunizations Immunization Administration Dates Next Due Influenza Split High Dose Pr eservative Free IM 06/01/2018,09/30/2017,06/03/2016,07/18,06/21/2014,06/07/2013 Influenza TIV (IM) 07/06/2012,06/23/2011 Influenza, Quadrivalent, Pre servative Free 06/18/2019 Influenza, Unspecified 06/01/2021,06/05/2020, Moderna SARS-COV-2 11/26/2020,10/29/2020 Pneumococcal Conjugate 13-Valent 06/30/2017,12/0 01/2016 Pneumococcal Polysaccharide 11/20/2014, 4,07/06/2004 Tdap 11/17/2010 Zoster 03/16/2020,07/14/2019,07/06/2012 Family History Medical History Relation Comments Cancer Father Melanoma on back Diabetes Father Heart disease Father Hypertension Father Cancer Mother Lung cancer Diabetes Mother Hypertension Mother Cancer Sibling Brain cancer Relation Status Comments Father Mother Sibling Social History Tobacco Use Types Packs/Day Years Used Date Smoking Tobacco: Former Cigarettes Q uit: 09/05/1993 Smokeless Tobacco: Never Tobacco Cessation:Counseling Given: Not Answered Comments:Smoking History Info:Every day Alcohol Use Standard Drinks/Week Comments No 0 (1 standard drink = 0.6 oz pur e alcohol) Comments Unknown Sex and Gender Information Value Date Recorded Sex Assigned at Not on file Legal Sex Female 4:39 PM EST Gender Identity Not on file Sexual Orientation Not on file Last Filed Vital Signs Vital Sign Reading Time Taken Comments Blood Pressure 178/76 10/31/2024 8:58 AM EST Pulse 74 10/31/2024 8:58 AM EST Temperature - - Respiratory Rate - - Oxygen Saturation 97% 10/31/2024 8:58 AM EST Inhaled Oxygen Concentration - - Weight 112 kg (248 lb) 10/31/2024 8:58 AM EST Height 162.6 cm (5' 4 ) 10/31/2024 8:58 AM EST Body Mass Index 42.57 10/31/2024 8:58 AM EST Plan of Treatment Upcoming Encounters Date Type Department Care Team (Late st Contact Info) Description 01/29/2025 10:00 AM EDT [facility] [address] [phone] Kevon Powers MD [address] [phone] Health Maintenance Due Date Last Done Comments Diabetes: Ophthalmology Exam 01/14/2021 Diabetes: Pedal Pulse Checked 01/14/2021 Diabetes: Sensory Foot Exam 01/14/2021 Diabetes: Visual Foot Exam 01/14/2021 Diabetes: Hemoglobin A1C 06/23/2021 021, 02/05/2021, 06/26/2020 Pneumococcal Vaccine: 50+ Years Completed 06/30/2017, 08/09/2016, 11/20/2014, Additional history exists Pneumococcal Vaccine: Peds (0 to 5 Years) and At-Risk Patients (6 to 49 Years) Discontinued 06/30/2017, 08/09/2016, 11/20/2014, Additional history exists Influenza Vaccine Completed 06/11/2024, , 06/05/2020, Additional history exists Hepatitis B Vaccine Aged Out No longe r eligible based on patient's age to complete this topic Procedures Procedure Name Priority Date/Time Associated Diagnosis Comments EXT RESULT ENTRY Routine 03/23/2021 from Last 3 Months or Most Recently Relevant to Health Maintenance Results * (ABNORMAL) EXT RESULT ENTRY (03/23/2021) WBC 8.0 3.3 - 10.0 10*3/ML Red Blood Cell Count 3.56 Hemoglobin 11.3(A) 12.0 - 16.0 Hematocrit 33.9(A) 36.0 - 46.0 Platelets 210 150 - 399 10*3/UL MCV 95.2 82.0 - 108.0 Sodium 141 137 - 147 Potassium 4.2 3.4 - 5.5 Chloride 104 99 - 108 Bicarbonate (CO2) 23 22 - 30 mmol/L Anion Gap 14 <=30 MMOL/L BUN 20 4 - 21 mg/dL Creatinine 2.50(A) 0.50 - 1.10 mg/dL eGFR Non-Afr Singaporean 19 eGFR 22 Hemoglobin A1C 6.0 4.0 - 6.0 03/23/2021 Historical Provider LAB BLOOD ORDERABLES Emma l Result from Last 3 Months or Most Recently Relevant to Health Maintenance Insurance [facility] Medicare [facility] Medicare Care Teams 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
--- OUTSIDE RECORDS SUMMARY | 2024-12-25 14:52 | XMS_ITS ---
Author Organization [facility] Address [address] [place] [address] Care Team Providers Care Track Repair Worker Name Role Phone Mason Mccray MD Primary Care Provider Arjun Sam Unavailable [phone] Allergies Allergen (clinical drug ingredient) Drug/Non Drug [...] Active REASON FOR VISIT At Risk Footcare, Skin problem(s) Medications Medication SIG (Take, Route, Frequency, Duration) Notes Start Date End Date Status Acetaminophen 500 MG 1 capsule as needed Orally every 6 hrs PRN Active NovoLOG 35 Subcutaneous before meal Not-Taking tiZANidine HCl Not-T aking oxyBUTYnin Not-Takin g Turmeric 450 MG as directed Orally Not-Taking Xultophy Active Vitamin B12 Active Rosuvastatin Calcium 5 MG 1 tablet Orall y Once a day Not-Taking Ammonium Lactate 12 % 1 APPLICATION EXTERNALLY TWICE A DAY 30 DAYS for 30 Active Tresiba 65 Not-Takin g Vitamin D3 Active VESIcare 10 MG Orally Activ e traMADol HCl 50 MG Orally PRN Active Synthroid 125 MCG 1 tablet on an empty stomach in the morning Orally Once a day for 30 day(s) Active Terazosin HCl 2 MG Orally A ctive Co Q 10 Active amLODIPine Besylate 2.5 MG Orally Active Losartan Potassium 25 MG Orally Active Gabapentin 300 MG Orally Twice a day Active Social History Tobacco Use: Social History [...] No Vital Signs Height 5ft 4in in 04/20/2024 Weight 230 lbs 04/20/2024 BMI 39.48 kg/m2 04/20/2024 Procedures Procedure Date Ordered Date Performed Result Body Sit e 62194-JPKOKEC NAIL, 1-5 04/20/2024 N/A 66495-HRYE SKIN LESIONS, OVER 4 04/20/2024 N/A E0023-[id number] DYSTROPHIC NAILS ANY # 04/20/2024 N/A Encounters Encounter Location Date Provider Diagnosis [facility] [address] [phone] 04/20/2024 Arjun Yates Type 2 diabetes mellitus with diabetic polyneuropathy E11.42 ; Tinea unguium B35.1 and Xerosis of skin L85.3 Assessments Encounter Date Diagnosis (ICD Code) Assessment Notes Treatment Notes Treatment Clinical Notes Section Notes 04/20/2024 Type 2 diabetes mellitus with diabetic polyneuropathy (ICD-10 - E11.42) 04/20/2024 Tinea unguium (ICD-10 - B35.1) 04/20/2024 Xerosis of skin (ICD-10 - L85.3) Plan Of Treatment Pending Test Test Name Order Date 65130-IEPBAUM NAIL, 1-5 04/20/2024 72468-ISVW SKIN LESIONS, OVER 4 04/20/20 24 A9579-CAGJZOHE DYSTROPHIC NAILS ANY # Next Appt Details Follow Up: prn, Reason: Provider Name:Arjun Yates , 01/25/2025 10:00:00 AM, [address] [place] [address], [phone], Procedure Notes * Category Sub-Category Detail Notes Keratoma Treatment Parring or Cutting o f Benign Hyperkeratotic Lesion(s) 33912 ( >4 Lesions) - The Benign hyperkeratotic lesions, as described above were pared, and/or cut utilizing a sterile #15 blade, tissue nippers, and/or dremel Debride Nails 1-5 Procedure: Performance of this nail treatment by a nonprofessional would put this patients foot and overall health at risk. Therefore, nail debridement was performed extensively to reduce/remove overall nail length, girth, thickness, subungual debris, and necrotic tissue, by manual and/or electrical means through the use of a nail nipper and/or dremel-type internal grinder tender, to a more viable healthy nail plate or bed tissue 1-5. Silver nitrate used for any petechial bleeding as necessary. Definitive antifungal treatment options have been reviewed and discussed with the patient. The patient chooses, no pharmaceutical tx (44963) Nail Reduction Nail Reduction Trimming of dyst rophic nails performed to reduce/remove overall nail length and girth, by manual and electrical means with use of a nail nipper and/or dremel, to more viable healthy nail plate or bed tissue, any number (G0127) Progress Notes * Jordana COLLINS PDOB:[birth year] (73 yo F)Acc No.[id number]:04/20/2024 Progress Note Patient:?Jordana Collins P Provider:?Arjun Yates DPM :1950???Age:73 Y???Sex:Female D ate:04/20/2024 Address:[facility] [address], [facility] Pcp:Mason Mccray MD Subjective: * Chief Complaints: * ???At Risk FootcareSkin prob coty(s) * HPI: ???At Risk footcare:?Pt States Last PCP Visit:?Date?12/23/2023 ???Skin problems:?Treatments:?medication ( AM Lactin ) , states adherence to recommended treatment application.? * ROS:?General/Constitutional:?Nausea?denies.?Vomiting?denies.?Hunger Thirst?denies.?Loss appetite?denies.?Chills?denies.?Fatigue?denies.?Fever?denies.?Night Sweats?denies.?Unexplained weight loss?denies.?Unexplained [...] * Family History:?Mother: dece ased, diagnosed with Diabetic - NIDDM, Unspecified essential hypertension, Other malignant neoplasm of unspecified site.?Father: , diagnosed with Diabetic - NIDDM, Unspecified essential hypertension, Other malignant neoplasm of unspecified site.?Maternal Grand Mother: diagnosed with Unspecified cerebral artery [...] frequency:, 2 cups per day. ?Children: yes. ?no Exercise. ?Marital status: . 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 * Medications:?TakingAcetamino phen 500 MG Capsule 1 capsule as needed Orally every 6 hrs, Notes: PRNamLODIPine Besylate 2.5 MG Tablet Orally Co Q 10 Gabapentin 300 MG Capsule Orally Twice a dayLosartan Potassium 25 MG Tablet Orally traMADol HCl 50 MG Tablet Orally PRNTerazosin HCl 2 MG Capsule Orally Synthroid 125 MCG Tablet 1 tablet on an empty stomach in the morning Orally Once a dayVESIcare 10 MG Tablet Orally Vitamin D3 Vitamin B12 Xultophy Ammonium Lactate 12 % Cream 1 APPLICATION EXTERNALLY TWICE A DAY 30 DAYS Taking Acetaminophen 500 MG Capsule 1 capsule as needed Orally every 6 hrs, Notes: PRNTaking amLODIPine Besylate 2.5 MG Tablet Orally Taking Co Q 10 Taking Gabapentin 300 MG Capsule Orally Twice a dayTaking Losartan Potassium 25 MG Tablet Orally Taking traMADol HCl 50 MG Tablet Orally PRNTaking Terazosin HCl 2 MG Capsule Orally Taking Synthroid 125 MCG Tablet 1 tablet on an empty stomach in the morning Orally Once a dayTaking VESIcare 10 MG Tablet Orally Taking Vitamin D3 Taking Vitamin B12 Taking Xultophy Taking Ammonium Lactate 12 % Cream 1 APPLICATION EXTERNALLY TWICE A DAY 30 DAYS Not-Taking/PRNRosuvastatin Calcium 5 MG Tablet 1 tablet Orally Once a dayTresiba 65 tiZANidine HCl NovoLOG 35 Subcutaneous before mealTurmeric 450 MG Capsule as directed Orally oxyBUTYnin Medication List reviewed and reconciled with the patientNot-Taking/PRN Rosuvastatin Calcium 5 MG Tablet 1 tablet Orally Once a dayNot-Taking/PRN Tresiba 65 Not-Taking/PRN tiZANidine HCl Not-Taking/PRN NovoLOG 35 Subcutaneous before mealNot-Taking/PRN Turmeric 450 MG Capsule as directed Orally Not-Taking/PRN oxyBUTYnin Medication List reviewed and reconciled with the patient * Allergies:?Codeine Phosphate PercocetZestril: coughSimvastatin: myalgiaPravastatin Sodium: myalgiaAtorvastatin Calcium: headaches, myalgiayes[Allergies Verified] Objective: * Vitals:?Ht: 5ft 4in, Wt:230, BMI:39.48, Shoe size:10-10.5W, BS:99. * ???Past Orders: ???Lab:HEMOGLOBIN A1C (GLYCO HEMOGLOBIN) (Order Date - 12/05/2023) (Collection Date - 12/05/2023) ? Value Reference Range ?HEMOGLOBIN [...] IPJ, T5, SUB MTH (s), 1, B/L, Heel(s), B/L , Skin shows approximately 80-90% LESS, sign(s) of, dryness, scaling, in a stocking fashion, no fissure(s) present, B/L.? Assessment: * Assessment: 1.?Tinea unguium - B35.1?2.? Type 2 diabetes mellitus with diabetic polyneuropathy - E11.42 (Primary)?3.?Xerosis of skin - L85.3, Acute problem, Stable (1=3),Response to treatment - Improvement? Plan: * Treatment: * Procedures:?Debride Nails 1-5:?Procedure:?Performance of this nail treatment by a nonprofessional would put this patients foot and overall health at risk. Therefore, nail debridement was performed extensively to reduce/remove overall nail length, girth, thickness, subungual debris, and necrotic tissue, by manual and/or electrical means through the use of a nail nipper and/or dremel-type internal grinder tender, to a more viable healthy nail plate or bed tissue 1-5. Silver nitrate used for any petechial bleeding as necessary. Definitive antifungal treatment options have been reviewed and discussed with the patient. The patient chooses, no pharmaceutical tx (25497).?Keratoma Treatment:?Parring or Cutting of Benign Hyperkeratotic Lesion(s)?57748 ( >4 Lesions) - The Benign hyperkeratotic lesions, as described above were pared, and/or cut utilizing a sterile #15 blade, tissue nippers, and/or dremel.?Nail Reduction:?Nail Reduction?Trimming of dystrophic nails performed to reduce/remove overall nail length and girth, by manual and electrical means with use of a nail nipper and/or dremel, to more viable healthy nail plate or bed tissue, any number (G0127).? * Procedure Codes:?G0127 ARLENE ING DYSTROPHIC NAILS ANY #, Modifiers: XS 49220 DEBRIDE NAIL, 1-5, Modifiers: XS 00194 TRIM SKIN LESIONS, OVER 4, Modifiers: XS * Preventive Medicine:? ??Counseling:?Discussion:?-12: Office or other outpatient visit for the evaluation and management of an established patient, which required a medically appropriate history and/or examination and STRAIGHTFORWARD level of MEDICAL DECISION MAKING, 1 SELF-LIMITED OR MINOR PROBLEM, MINIMAL- NO AMOUNT/COMPLEXITY OF DATA TO BE REVIEWED/ANALYZED, AND MINIMAL RISK OF COMPLICATION/MORBIDITY. The visit on the day of the [...] have encouraged the patient to call the office.?Xerosis:?Given recent successful results to treatment, The patient is to cont the rx cream as directed.? * Follow Up:?prn * Images: * Sign off status: Completed true * Provider:?Arjun Yates DPM Date:?2023 Generated for Cassia mckinney/Bari/Rudy on:?12/25/2024 02:51 PM EDT History and Physical Notes * HPI (History of Present Illness) Category Sub-Category Detail Notes Category Not es Skin problems Treatments: medication ( AM Lactin ) , states adherence to recommended treatment application At Risk footcare Pt States Last PCP Visit: Date: 12/23/2023 Examination Category Sub-Category Detail Notes Category Not [...] IPJ, T5, SUB MTH (s), 1, B/L, Heel(s), B/L , Skin shows approximately 80-90% LESS, sign(s) of, dryness, scaling, in a stocking fashion, no fissure(s) present, B/L Nails NAILS are: Elongated, overg rown, dystrophic, lytic, greater than 3mm thick, discolored and friable with crumbly malodorous subungual debris, T5, remaining nails are elongated, overgrown, dystrophic
== END 2024-12-25 13:59 | disposition home or self-care (01) ==
LOC: HO.HGI 12:33
PROVIDERS: PCP Internal Medicine; Visit Provider Nurse Practitioner Family
DX: K21.9 Gastro-esophageal reflux disease without esophagitis (principal); K59.03 Drug induced constipation; Z86.0102 Personal history of hyperplastic colon polyps; Z12.11 Encounter for screening for malignant neoplasm of colon
CPT/HCPCS: 99214

== ENCOUNTER → 2024-12-25 12:32 | Outpatient (BNVA) | payer MEDICARE, SELFPAY | PROVIDERS: PCP Internal Medicine; Visit Provider Nurse Practitioner Family | DX: Z01.818 Encounter for other preprocedural examination (principal); K21.9 Gastro-esophageal reflux disease without esophagitis; K59.03 Drug induced constipation | CPT/HCPCS: 99212 ==

== ENCOUNTER 2025-06-06 10:35 | Day surgery (SDC) | payer MEDICARE, SELFPAY ==
--- OUTSIDE RECORDS SUMMARY | 2025-06-03 14:42 | XMS_ITS | Encounter Summary ---
Author Organization [facility] Address [address] [facility] [address] [place] [address] Phone Care Team Providers Care Pilot Boat Operator Name Role Phone Mason Mccray MD Primary Care Provider [phone] Mason Mccray MD Unavailable [phone] Akilah Maciel MD Unavailable [phone] Juan M Berry MD Unavailable Kevon Powers MD Unavailable [phone] Encounter Details Date Type Department Care Team (Late st Contact Info) Description 05/30/2025 Orders Only [facility] Internal Medicine [address] [place] [address] Provider, MD Paulette [address] [place] [address] Social History Tobacco Use Types Packs/Day Years Used Date Smoking Tobacco: Former Cigarettes 2 36 0 01/20/1960 - 09/05/1995 Passive Smoke Exposure: Never Smokeless Tobacco: Never Comments:quit 23 years ago Alcohol Use Standard Drinks/Week Comments No 0 (1 standard drink = 0.6 oz pur e alcohol) Education Answer Date Recorded Are you interested in more education? Not on jb e 12/31/2022 Are you concerned about learning? Not on file 12/31/2022 No 12/31/2022 No 12/31/2022 Digital Access Answer Date Recorded No 01/26/2023 No 01/26/2023 Reliable internet access at home? Not on file 01/26/2023 Device with a working camera? Not on file Intimate Partner Violence Answer Date R ecorded Denied Basic Needs Not on file 06/27/2024 In the past 12 months have y ou been in a relationship with a person who hurts, threatens, or tries to control you? No 06/27/2024 Worried food would run out Not on file 06/27 In the past 12 months have y ou been in a relationship with a person who hurts, threatens, or tries to control you? No 06/27/2024 Comments No Sex and Gender Information Value Date Recorded Sex Assigned at Female 06/23/2023 11:35 AM EDT Legal Sex Female 10:05 PM EDT Gender Identity Female 06/23/2023 11:35 AM EDT Sexual Orientation Straight 06/23/2023 11 :35 AM EDT documented as of this encounter Plan of Treatment Upcoming Encounters Date Type Department Care Team (Late st Contact Info) Description 10/04/2025 3:00 PM EST Office Visit [facility] Medicine [address] [place] [address] Mason Mccray MD [address] [place] [address] 11/25/2025 2:40 PM EDT Office Visit [facility] [address] [place] [address] [place] [address] Melina Feliz MD [address] [facility], [address] [place] [address] documented as of this encounter Procedures Procedure Name Priority Date/Time Associated Diagnosis Comments DIABETES EYE EXAM FOR RESULT ENTRY ONLY Routine 05/29/2025 2:40 PM EDT documented in this encounter Results * DIABETES EYE EXAM FOR RESULT ENTRY ONLY (05/29/2025 2:40 PM EDT) us Historical Provider HEALTH MAINTENANCE Final Result documented in this encounter Visit Diagnoses Not on filedocumented in this encounter Additional Health Concerns Assessment Noted Time PHQ-2 Depression Total Score: 0 06/27/20 7:55 PM EDT documented as of this encounter Care Teams Pilot Boat Operator Relationship Specialty Start Date End Date Mason Mccray MD [address] [place] [address] PCP - General 06/23/17 Mason Mccray MD [address] [place] [address] Insurance Assigned Provider 12/10/23 Akilah Maciel MD [address] [place] [address] Surgeon Urology 12/19/19 Juan M Berry MD [address] [place] [address] [place] [address] Ophthalmology 03/02/21 Kevon Powers MD [address] [place] [address] [place] [address] Air Bag Builder Nephrology 09/06/23 documented as of this encounter Additional Source Comments The information contained in this document represents components of the legal health record. It is not the complete legal health record.[facility]
--- OUTSIDE RECORDS SUMMARY | 2025-06-03 14:42 | XMS_ITS | Encounter Summary ---
Author Organization [facility] Address [address] [facility] ([place], [place]) [address] [place] [address] Phone Care Team Providers Care Instrument Sterilizer Name Role Phone Mason Mccray MD Primary Care Provider [phone] Mason Mccray MD Unavailable [phone] Akilah Maciel MD Unavailable [phone] Juan M Berry MD Unavailable Kevon Powers MD Unavailable [phone] Reason for Visit * Reason Onset Date Comments Results 05/20/2025 Encounter Details Date Type Department Care Team (Late st Contact Info) Description 05/20/2025 Telephone [facility] Internal Medicine [address] [place], [place] [id number] Mason Mccray MD 40 [place] [address] [email or web address] Results Social History Tobacco Use Types Packs/Day Years [...] AM EDT documented as of this encounter Progress Notes * Zuleyma Gray MA - 05/20/2025 1:[address] Mccray contact pt to let her know Covid/Flu A and B/RSV and strep were all negative. Pt aware of results as shown above. documented in this encounter Plan of Treatment Upcoming Encounters Date Type Department Care Team (Late st Contact Info) Description 10/04/2025 3:00 PM EST Office Visit [facility] [address] [place] [address] Mason Mccray MD 40 [facility] [place] [address] 11/25/2025 2:40 PM EDT Office Visit [facility] [address] [place] [address] Melina Feliz MD [address] [facility], 1st [place] [address] [email or web address] documented as of this encounter Visit Diagnoses Not on filedocumented in this encounter Additional Health Concerns Assessment Noted Time PHQ-2 Depression Total Score: 0 06/27/20 24 7:55 PM EDT documented as of this encounter Care Teams Instrument Sterilizer Relationship Specialty Start Date End Date Mason Mccray MD 40 [place] [address] [email or web address] PCP - General 06/23/17 Mason Mccray MD 40 [place] [address] Insurance Assigned Provider 12/10/23 Akilah Maciel MD 40 [place] [address] Surgeon Urology 12/19/19 Juan M Berry MD [address] [place] [address] [place] [address] Ophthalmology 03/02/21 Kevon Powers MD [address] [place] [address] [place] [address] Safety Officer Nephrology 09/06/23 documented as of this encounter Additional Source Comments The information contained in this document represents components of the legal health record. It is not the complete legal health record.[facility]
--- OUTSIDE RECORDS SUMMARY | 2025-06-03 14:42 | XMS_ITS | Patient Health Record ---
Author Organization [facility] Address [address] [place] [address] Care Team Providers Care Supervisor Type Photography Name Role Phone Mason Mccray MD Primary Care Provider Arjun Sam Unavailable [phone] Allergies Allergen (clinical drug ingredient) Drug/Non Drug Allergy documented on EMR Reaction Allergy Type Onset Date Status atorvastatin Atorvastatin Calcium headaches, myalgia Drug Allergy Active Codeine Phosphate Unknown Drug Allergy Active acetaminophen / oxycodone Percocet Unknown Drug Allergy Active pravastatin Pravastatin Sodium myalgia Drug Allergy Active simvastatin Simvastatin myalgia Drug Allergy Act annalisa lisinopril Zestril cough Drug Allergy Active Results Component Value Reference Range Notes HEMOGLOBIN A1C (GLYCOHEMOGLO BIN) Reviewed date:01/25/2025 09:56:06 AM Interpretation: Performing Lab: Notes/Report: HEMOGLOBIN A1C % (HH) 5.8 Reason For Referral No Information Medications Medication SIG (Take, Route, Frequency, Duration) Notes Start Date End Date Status Xultophy Active Ammonium Lactate 12 % 1 APPLICATION EXTE RNALLY TWICE A DAY 30 DAYS; Duration: 70 Active Extra Depth Orthopedic Shoes (1 Pair) with Customized Heat Molded Multidensity Innersoles (3 Pair) as directed Dx: NIDDM/Polyneuropathy (E11.42), Hammertoe Foot Deformity (M20.41,M20.42), Preulcerative Skin Lesion(s) (L85.1 Active Rosuvastatin Calcium 5 MG 1 tablet Orally Once a day Not-Taking Gabapentin 300 MG Orally Twice a day Active Losartan Potassium 25 MG Orally Active Tresiba 65 Not-Takin g traMADol HCl 50 MG Orally PRN Active tiZANidine HCl Not-T aking Terazosin HCl 2 MG Orally A ctive NovoLOG 35 Subcutaneous before meal Not-Taking Synthroid 125 MCG 1 tablet on an empty stomach in the morning Orally Once a day; Duration: 30 day(s) Active Turmeric 450 MG as directed Orally Not-Taking VESIcare 10 MG Orally Activ e oxyBUTYnin Not-Takin g Vitamin D3 Active Vitamin B12 Active Acetaminophen 500 MG 1 capsule as needed Orally every 6 hrs PRN Active amLODIPine Besylate 2.5 MG Orally Active Co Q 10 Active Immunizations Vaccine Route Administration Date Status Comme nts Influenza Unknown 09/05/2018 Administered Influenza Unknown 05/07/2019 Administered Influenza Unknown 06/05/2022 Administered Influenza Unknown 05/06/2023 Administered Influenza Unknown 05/06/2024 Administered COVID-19 Moderna Vaccine Unknown 06/19/2022 Administered 1st 10/29/20 2nd 11/26/20 3rd 10/28/21 Social History Tobacco Use: Social History Observation [...] Problem Status W/U Status Risk Notes Problem Acquired hammer toe of right foot (1207377889780013 ) Other hammer toe(s) (acquired), right foot (M20.41) Active confirmed Response to treatment, Improvemen t Problem Acquired hammer toe of left foot ([id number] ) Other hammer toe(s) (acquired), left foot (M20.42) Active confirmed Response to treatment, Improvemen t Problem Polyneuropathy due to type 2 diabetes mellitus (667538244) Type 2 diabetes mellitus with diabetic polyneuropathy (E11.42) Active confirmed Vital Signs Blood pressure diastolic 60 mm Hg 05/07/2025 Height 5ft 4in in 05/07/2025 Blood pressure systolic 104 mm Hg 05/07/2025 Weight 255 lbs 05/07/2025 BMI 43.77 kg/m2 05/07/2025 Procedures Procedure Date Ordered Date Performed Result Body Sit e 11857-KNRZVKC NAIL, 1-5 07/20/2024 N/A 88541-FHLH SKIN LESIONS, OVER 4 07/20/2024 N/A G5564-IVWKQLFF DYSTROPHIC NAILS ANY # 07/20/2024 N/A 71552-ELZNPFU NAIL, 1-5 10/19/2024 N/A 61260-TFBV SKIN LESIONS, OVER 4 10/19/2024 N/A X3349-IYWXJYAN DYSTROPHIC NAILS ANY # 10/19/2024 N/A 75820-TSUIEHW NAIL, 1-5 01/25/2025 N/A 81313-UQSE SKIN LESIONS, OVER 4 01/25/2025 N/A X7147-TQSCBSIX DYSTROPHIC NAILS ANY # 01/25/2025 N/A 45889-OARHTBL NAIL, 1-5 05/07/2025 N/A 83188-PPZV SKIN LESIONS, OVER 4 05/07/2025 N/A O1105-AGDNIWCA DYSTROPHIC NAILS ANY # 05/07/2025 N/A Encounters Encounter Location Date Provider Diagnosis [address] [address] 07/20/2024 Arjunjen Yates Type 2 diabetes mellitus with diabetic polyneuropathy E11.42 ; Tinea unguium B35.1 ; Other hammer toe(s) (acquired), right foot M20.41 and Other hammer toe(s) (acquired), left foot M20.[address] [address] 10/19/2024 Arjunjen Yates Type 2 diabetes mellitus with diabetic polyneuropathy E11.42 ; Tinea unguium B35.1 ; Other hammer toe(s) (acquired), right foot M20.41 and Other hammer toe(s) (acquired), left foot M20.[address] [address] 01/25/2025 Arujnjen Yates Type 2 diabetes mellitus with diabetic polyneuropathy E11.42 ; Tinea unguium B35.1 ; Other hammer toe(s) (acquired), right foot M20.41 and Other hammer toe(s) (acquired), left foot M20.42 [facility] [address] [place] [address] 05/07/2025 Arjun Yates Type 2 diabetes mellitus with diabetic polyneuropathy E11.42 and Tinea unguium B35.1 Assessments Encounter Date Diagnosis (ICD Code) Assessment Notes Treatment Notes Treatment Clinical Notes Section Notes 07/20/2024 Tinea unguium (ICD-10 - B35.1) 07/20/2024 Type 2 diabetes mellitus with diabetic polyneuropathy (ICD-10 - E11.42) 10/19/2024 Tinea unguium (ICD-10 - B35.1) 10/19/2024 Type 2 diabetes mellitus with diabetic polyneuropathy (ICD-10 - E11.42) 01/25/2025 Tinea unguium (ICD-10 - B35.1) 01/25/2025 Type 2 diabetes mellitus with diabetic polyneuropathy (ICD-10 - E11.42) 05/07/2025 Tinea unguium (ICD-10 - B35.1) 05/07/2025 Type 2 diabetes mellitus with diabetic polyneuropathy (ICD-10 - E11.42) 01/25/2025 Other hammer toe(s) (acquired), right foot (ICD-10 - M20.41) 07/20/2024 Other hammer toe(s) (acquired), right foot (ICD-10 - M20.41) Patient Educated with: DIABETIC FOOT CARE INSTRUCTIONS. pdf (DIABETIC FOOT CARE INSTRUCTIONS. pdf) 10/19/2024 Other hammer toe(s) (acquired), right foot (ICD-10 - M20.41) Patient Educated with: DIABETIC FOOT CARE INSTRUCTIONS. pdf (DIABETIC FOOT CARE INSTRUCTIONS. pdf) 01/25/2025 Other hammer toe(s) (acquired), left foot (ICD-10 - M20.42) 10/19/2024 Other hammer toe(s) (acquired), left foot (ICD-10 - M20.42) 07/20/2024 Other hammer toe(s) (acquired), left foot (ICD-10 - M20.42) Plan Of Treatment Pending Test Test Name Order Date 43244-ZXHZQEH NAIL, 1-5 12/26/2018 51021-OVKQHND NAIL, -03/06/2019 96904-GHQWMBS NAIL, -06/05/2019 60751-ZRSGAEE NAIL, 09-0908/07/2019 77695-YFRPACV NAIL, 09-0911/02/2019 87497-CVUYKAP NAIL, -01/11/2020 84977-VANGZJK NAIL, 09-0903/14/2020 98595-AFDQUJW NAIL, -05/23/2020 40261-KIXVJZM NAIL, 09-0908/08/2020 10884-UTPVBNY NAIL, -10/17/2020 98351-GQUFKIO NAIL, -12/26/2020 39079-VATBFET NAIL, 09-0903/10/2021 00943-LNRNIBJ NAIL, 09-0906/02/2021 06417-SDBPQEW NAIL, 09-0909/11/2021 91013-OFMVZWZ NAIL, 09-0911/24/2021 64690-XEQYUSH NAIL, 09-0902/09/2022 33048-QZHEDRX NAIL, 09-0905/11/2022 19960-SXIJDWF NAIL, -07/23/2022 31054-VWLXTEQ NAIL, -10/19/2022 22185-IUIAHGW NAIL, 09-0901/07/2023 58885-BWXQKGW NAIL, 09-0903/25/2023 81351-KGPSTPO NAIL, 09-0906/10/2023 72458-RYYBVDS NAIL, 09-0908/23/2023 25792-VNTJRES NAIL, 09-0911/04/2023 64396-TCUIXVU NAIL, 09-0904/20/2024 20005-AXDNZHX NAIL, -07/20/2024 15838-VBCNHFF NAIL, 09-0910/19/2024 49870-EXQZFAG NAIL, 09-0901/25/2025 35772-OVRLJIU NAIL, -05/07/2025 57090-QWGL SKIN LESIONS, OVER 4 05/07/20 25 54899-BERD SKIN LESIONS, OVER 4 01/26/20 25 31995-ZKUX SKIN LESIONS, OVER 4 10/19/19 25 62371-QBGM SKIN LESIONS, OVER 4 07/20/20 24 50317-AZRK SKIN LESIONS, OVER 4 04/20/20 24 69441-BKPI SKIN LESIONS, OVER 4 11/04/19 24951-GFTM SKIN LESIONS, OVER 4 08/23/20 21831-BNZL SKIN LESIONS, OVER 4 11/25/19 41932-SSKH SKIN LESIONS, OVER 4 06/10/20 68576-EXYW SKIN LESIONS, OVER 4 03/25/20 56495-GLZI SKIN LESIONS, OVER 4 01/08/20 65655-COWR SKIN LESIONS, OVER 4 10/19/19 76151-EMPP SKIN LESIONS, OVER 4 07/23/20 51412-MXUJ SKIN LESIONS, OVER 4 05/11/20 75808-KSNE SKIN LESIONS, OVER 4 02/10/20 73166-PXUI SKIN LESIONS, OVER 4 12/27/19 76902-SLCM SKIN LESIONS, OVER 4 09/11/19 11945-KJJX SKIN LESIONS, OVER 4 03/10/20 36890-DIVW SKIN LESIONS, OVER 4 06/02/20 61079-GFIN SKIN LESIONS, OVER 4 08/08/20 24328-DTCJ SKIN LESIONS, OVER 4 10/17/19 68154-SNBP SKIN LESIONS, OVER 4 03/14/20 20 18114-SYOI SKIN LESIONS, OVER 4 05/23/20 55630-RBYG SKIN LESIONS, OVER 4 06/05/20 65946-XKWL SKIN LESIONS, OVER 4 01/11/20 62427-KAFY SKIN LESIONS, OVER 4 08/07/20 19 02365-MCOO SKIN LESIONS, OVER 4 11/02/19 20 69468-QTTO SKIN LESIONS, OVER 4 12/27/19 16788-ZLOX SKIN LESIONS, OVER 4 03/06/20 N8858-IWACHEQV DYSTROPHIC NAILS ANY # L0475-DITBZNCY DYSTROPHIC NAILS ANY # U7679-UWPLJZUA DYSTROPHIC NAILS ANY # X4699-FRMREAKB DYSTROPHIC NAILS ANY # U4531-QZCASRLD DYSTROPHIC NAILS ANY # Q4049-DYXAXOXD DYSTROPHIC NAILS ANY # X4525-FGWDYPRD DYSTROPHIC NAILS ANY # Q1570-GYQGRGAU DYSTROPHIC NAILS ANY # R5369-KVZTAKMC DYSTROPHIC NAILS ANY # S6590-YGOFPWET DYSTROPHIC NAILS ANY # C0196-FVZZVLMK DYSTROPHIC NAILS ANY # K6260-BQSGKMNL DYSTROPHIC NAILS ANY # I0923-TEFWBAJP DYSTROPHIC NAILS ANY # L6083-NAFBZBMQ DYSTROPHIC NAILS ANY # F3507-XWRHADJU DYSTROPHIC NAILS ANY # V5101-CUCVYNAC DYSTROPHIC NAILS ANY # N5661-FPCBCIJN DYSTROPHIC NAILS ANY # F7587-MMSGGHUK DYSTROPHIC NAILS ANY # R0115-DSHPGZEY DYSTROPHIC NAILS ANY # I0933-AMJKSBNV DYSTROPHIC NAILS ANY # A3174-JPCRABPI DYSTROPHIC NAILS ANY # F1354-TNMTTMLM DYSTROPHIC NAILS ANY # C3075-TJIIOCME DYSTROPHIC NAILS ANY # X5114-XXOOXQJI DYSTROPHIC NAILS ANY # S3704-AHGLUCDF DYSTROPHIC NAILS ANY # F0152-DDFLMGLB DYSTROPHIC NAILS ANY # C1687-XIOQTKMJ DYSTROPHIC NAILS ANY # X2249-YTYEQLPJ DYSTROPHIC NAILS ANY # F5545-ZCFDGGDN DYSTROPHIC NAILS ANY # Next Appt Details Provider Name:Arjun Yates , 08/20/2025 03:15:00 PM, [address] [place] [address], [phone], Insurance Providers Payer Name Payer Address Payer Phone Subscriber Number Group Number Insured Name Patient Relationship to Insured Coverage Start Date Coverage End Date Medicare National [facility] [address] [place] [address] [id number] Jordana Collins Self - patient is the insured [employer] [address] [place] [address] [id number] Jordana Collins Self - patient is the [...]
--- OUTSIDE RECORDS SUMMARY | 2025-06-03 14:42 | XMS_ITS | Encounter Summary ---
Author Organization [facility] Address [address] [facility] [address] [place] [address] Phone Care Team Providers Care Manpower Development Specialist Name Role Phone Mason Mccray MD Primary Care Provider [phone] Mason Mccray MD Unavailable [phone] Akilah Maciel MD Unavailable [phone] Juan M Berry MD Unavailable [phone] Kevon Powers MD Unavailable [phone] Encounter Details Date Type Department Care Team (Late st Contact Info) Description 05/07/2025 Orders Only [facility] Internal Medicine [address] [place] [address] Provider, MD Paulette [address] [place] [address] Social History Tobacco Use Types Packs/Day [...] Description 10/04/2025 3:00 PM EST Office Visit [facility] Internal Medicine [address] [place] [address] Mason Mccray MD 40 [place] [address] 11/25/2025 2:40 PM EDT Office Visit [facility] [address] [place] [address] [place] [address] Melina Feliz MD 22 [facility], 1st [place] [address] documented as of this encounter Procedures Procedure Name Priority Date/Time Associated Diagnosis Comments DIABETES EYE EXAM FOR RESULT ENTRY ONLY Routine 04/30/2025 3:21 PM EDT documented in this encounter Results * DIABETES EYE EXAM FOR RESULT ENTRY ONLY (04/30/2025 3:21 PM EDT) us Historical Provider HEALTH MAINTENANCE Final Result documented in this encounter Visit Diagnoses Not on filedocumented in this encounter Additional Health Concerns Assessment Noted Time PHQ-2 Depression Total Score: 0 06/27/20 7:55 PM EDT documented as of this encounter Care Teams Manpower Development Specialist Relationship Specialty Start Date End Date Mason Mccray MD 40 [place] [address] PCP - General 06/23/17 Mason Mccray MD 40 [place] [address] Insurance Assigned Provider 12/10/23 Akilah Maciel MD [address] [place] [address] Surgeon Urology 12/19/19 Juan M Berry MD [address] [place] [address] [place] [address] Ophthalmology 03/02/21 Kevon Powers MD [address] [place] [address] [place] [address] Chemists Nephrology 09/06/23 documented as of this encounter Additional Source Comments The information contained in this document represents components of the legal health record. It is not the complete legal health record.[facility]
--- OUTSIDE RECORDS SUMMARY | 2025-06-03 14:43 | XMS_ITS | Encounter Summary ---
Author Organization [facility] Address [address] [facility] [address] [place] [address] Phone Care Team Providers Care Habitat Management Coordinator Name Role Phone Mason Mccray MD Primary Care Provider Mason Mccray MD Unavailable [phone] Yanet Kee ETHANOL OPERATIONS MANAGER Unavailable Kayla Dickens ETHANOL OPERATIONS MANAGER Unavailable [phone] Mason Mccray MD Unavailable Akilah Maciel MD Unavailable Juan M Berry MD Unavailable Kevon Powers MD Unavailable Encounter Details Date Type Department Care Team (Late st Contact Info) Description 06/15/2018 Transcribe Orders [facility] Laboratory [address] [place] [address] Elijah Fischer MD [address] [facility] [address] [place] [address] Chronic kidney disease, stage III (moderate) (Primary Dx) Social History Tobacco Use Types Packs/Day Years Used Date Smoking Tobacco: Former Cigarettes 2 32 Smokeless Tobacco: Never Comments:quit 23 years ago [...] 10/04/2025 3:00 PM EST Office Visit [facility] Internal Medicine [address] [place] [address] Mason Mccray MD [address] [place] [address] 11/25/2025 2:40 PM EDT Office Visit [facility] [address] [place] [address] Melina Feliz MD [address] [place] [address], [address] [place] [address] documented as of this encounter Visit Diagnoses Diagnosis Chronic kidney disease, stage III (moderate)- Primary Chronic kidney disease, Stage III (moderate) documented in this encounter Additional Health Concerns Assessment Noted Time PHQ-2 Depression Total Score: 0 09/30/19 18 11:18 AM EST documented as of this encounter Care Teams Habitat Management Coordinator Relationship Specialty Start Date End Date Mason Mccray MD [address] [place] [address] PCP - General 06/23/17 Mason Mccray MD [address] [place] [address] Historical LMR Provider 06/26/17 03/01/21 Yanet Kee NP [address] [place] [address] [address] [place] [address] Historical LMR Provider 06/26/17 Kayla Dickens NP [address] [place] [address] Historical LMR Provider 06/26/17 03/01/21 Mason Mccray MD [address] [place] [address] Insurance Assigned Provider 12/10/23 Akilah Maciel MD [address] [place] [address] Surgeon Urology 12/19/19 Juan M Berry MD [address] [place] [address] [place] [address] Ophthalmology 03/02/21 Kevon Powers MD [address] [place] [address] [place] [address] [employer] Salesperson Nephrology 09/06/23 documented as of this encounter Additional Source Comments The information contained in this document represents components of the legal health record. It is not the complete legal health record.[facility]
--- OUTSIDE RECORDS SUMMARY | 2025-06-03 14:43 | XMS_ITS | Encounter Summary ---
Author Organization [facility] Address [address] [facility] [address] [place] [address] Phone Care Team Providers Care Warehouse Loader Name Role Phone Mason Mccray MD Primary Care Provider Mason Mccray MD Unavailable Yanet Kee HONEYCOMB DECAPPER Unavailable [phone] Kayla Dickens HONEYCOMB DECAPPER Unavailable [phone] Mason Mccray MD Unavailable Akilah Maciel MD Unavailable Juan M Berry MD Unavailable [phone] Kevon Powers MD Unavailable Encounter Details Date Type Department Care Team (Late st Contact Info) Description 12/27/2017 Transcribe Orders [facility] Laboratory [address] [place] [address] Elijah Fischer MD 300 [facility] [address] [place] [address] Chronic kidney disease, stage III (moderate) (Primary Dx); Kidney stone; Morbid (severe) obesity due to excess calories Social History Tobacco Use Types Packs/Day Years [...] 10/04/2025 3:00 PM EST Office Visit [facility] Internal Medicine [address] [place] [address] Mason Mccray MD [address] [place] [address] 11/25/2025 2:40 PM EDT Office Visit [facility] [address] [place] [address] Melina Feliz MD 22 [facility], 1st [place] [address] [email or web address] documented as of this encounter Results * (ABNORMAL) Parathyroid hormone (PTH) (12/27/2017 9:56 AM EDT) PARATHYROID HORMONE 118(H) 15 - 65 pg/mL [facility] Blood 12/27/2017 9:56 AM EDT 12/27/2017 4:45 PM EDT us Elijah Fischer MD LAB BLOOD ORDERABLE S Final Result [facility] [address] [place] [address] * Magnesium (12/27/2017 9:47 AM EDT) MAGNESIUM 1.9 1.6 - 2.6 mg/dL [facility] Blood 12/27/2017 9:47 AM EDT 12/27/2017 10:05 AM EDT us Elijah Fischer MD LAB BLOOD ORDERABLE S Final Result [facility] [address] [place] [address] documented in this encounter Visit Diagnoses Diagnosis Chronic kidney disease, stage III (moderate)- Primary Chronic kidney disease, Stage III (moderate) Kidney stone Calculus of kidney Morbid (severe) obesity due to excess calories documented in this encounter Additional Health Concerns Assessment Noted Time PHQ-2 Depression Total Score: 0 09/30/19 18 11:18 AM EST documented as of this encounter Care Teams Warehouse Loader Relationship Specialty Start Date End Date Mason Mccray MD [address] [place] [address] PCP - General 06/23/17 Mason Mccray MD [address] [place] [address] Historical LMR Provider 06/26/17 03/01/21 Yanet Kee, ARNALDO [address] [place] [address] Historical LMR Provider 06/26/17 Kayla Dickens NP [address] [place] [address] Historical LMR Provider 06/26/17 03/01/21 Mason Mccray MD [address] [place] [address] [email or web address] Insurance Assigned Provider 12/10/23 Akilah Maciel MD [address] [place] [address] 6 [place] [address] [email or web address] Surgeon Urology 12/19/19 Juan M Berry MD [address] [place] [address] Dr [address] [place] [address] Ophthalmology 03/02/21 Kevon Powers MD [address] [place] [address] [place] [address] [employer] Sales Director Nephrology 09/06/23 documented as of this encounter Additional Source Comments The information contained in this document represents components of the legal health record. It is not the complete legal health record.[facility]
--- OUTSIDE RECORDS SUMMARY | 2025-06-03 14:43 | XMS_ITS | Clinical Summary ---
Author Organization [facility] Address [address] [address] [place] [address] Phone Care Team Providers Care Machine [employer] Name Role Phone Mason Mccray MD Primary Care Provider [phone] Allergies Active Allergy Reactions Criticality Noted Date [...] tablet Take 1,000 mg by mouth Active senna (SENOKOT) 8.6 MG tablet Take 1 tablet by mouth at night if needed Active Pitavastatin Calcium (Livalo) 1 MG tablet Take by mouth Active aspirin (ST BRIAN) 81 MG EC tablet Take 81 mg by mouth 1 (one) time each day Active esomeprazole (NexIUM) [address] capsule Take 40 mg by mouth 1 (one) time each day before breakfast Do not open capsule. Active losartan (COZAAR) 50 MG tablet Take 1 tablet (50 mg total) by mouth 1 (one) time each day 90 tablet 3 5 Active cholecalciferol (VITAMIN D-3 SUPER STRENGTH) 50 MCG (2000 UT) tablet Take 1 tablet (2,000 Units total) by mouth in the morning. 90 tablet 3 5 Active docusate sodium (COLACE) 100 MG capsule Take 100 mg by mouth in the morning and 100 mg in the evening. Active Active Problems Problem Noted Date Diagnosed Date Anemia in chronic kidney disease 01/28/2025 Carotid artery stenosis 05/01/2024 Peripheral vascular disease [...] Encounters Date Type Department Care Team Description 05/01/2025 9:20 AM EDT Office Visit [facility] [address] [phone] Kevon Powers MD Chronic kidney disease, stage 4 (severe) (HCC) (Primary Dx); Dyslipidemia; Hypertension; Obstructive nephropathy; Proteinuria, not otherwise specified; Secondary hyperparathyroidism (HCC); Vesicoureteric reflux; Anemia in chronic kidney disease 05/01/2025 Refill [facility] [address] [phone] Jackie Esparza 05/01/2025 Orders Only [facility] [address] [phone] Kevon Powers MD Chronic kidney disease, stage 4 (severe) (HCC); Diabetes mellitus, not otherwise specified (HCC); Obstructive nephropathy; Peripheral arterial occlusive disease (HCC); Proteinuria, not otherwise specified; Secondary hyperparathyroidism (HCC); Hypertension; Anemia in chronic kidney disease from Last 3 Months Immunizations Immunization Administration Dates Next Due Influenza (IM) Preservative Free 05/07/2019,09/2018 Influenza Split High Dose Pr eservative Free IM 06/11/2024,06/01/2018,09/30/2017,06/03,07/18/2015,06/21/2014,06/07/2013 Influenza TIV (IM) 07/06/2012,06/23/2011 Influenza Vaccine, Quadrival ent, Adjuvanted 06/05/2020 Influenza, Quadrivalent, Pre servative Free 06/18/2019 Influenza, Unspecified 06/01/2021,06/05/2020, Moderna SARS-COV-2 06/19/2022,11/26/2020, 021 Pneumococcal Conjugate 13-Valent 06/30/2017,01/2016 Pneumococcal Polysaccharide 11/20/2014, 4,07/06/2004 Tdap 11/17/2010 Zoster [...] Sign Reading Time Taken Comments Blood Pressure 132/60 05/01/2025 9:15 AM EDT Pulse 67 05/01/2025 9:15 AM EDT Temperature - - Respiratory Rate - - Oxygen Saturation 98% 05/01/2025 9:15 AM EDT Inhaled Oxygen Concentration - - Weight 112 kg (248 lb) 05/01/2025 9:15 AM EDT Height 162.6 cm (5' 4 ) 10/31/2024 8:58 AM EST Body Mass Index 42.57 10/31/2024 8:58 AM EST Plan of Treatment Upcoming Encounters Date Type Department Care Team (Late st Contact Info) Description 06/05/2025 3:30 PM EDT Office Visit [facility] [address] [place] [address] [place] [address] 07/22/2025 11:40 AM EST Office Visit [facility] [address] [phone] Kevon Powers MD [address] [phone] Health Maintenance Due Date Last Done Comments Diabetes: Ophthalmology Exam 01/14/2021 Diabetes: Pedal Pulse Checked 01/14/2021 Diabetes: Sensory Foot Exam 01/14/2021 Diabetes: Visual Foot Exam 01/14/2021 Influenza Vaccine (#1) 2025 4, 05/06/2024, 05/06/2023, Additional history exists Diabetes: Hemoglobin A1C 07/16/2025 025, 11/19/2024, 03/23/2021, Additional history exists Pneumococcal Vaccine: 50+ Years Completed 06/30/2017, 08/09/2016, 11/20/2014, Additional history exists Pneumococcal Vaccine: Peds (0 to 5 Years) and At-Risk Patients (6 to 49 Years) Discontinued 06/30/2017, 08/09/2016, 11/20/2014, Additional history exists Hepatitis B Vaccine Aged Out No longe r eligible based on patient's age to complete this topic Procedures Procedure Name Priority Date/Time Associated Diagnosis Comments PTH, INTACT Routine 04/15/2025 10:59 AM EDT FERRITIN Routine 04/15/2025 10:59 AM EDT MAGNESIUM Routine 04/15/2025 10:59 AM EDT PHOSPHATE ( PHOSPHORUS) Routine 04/15/2025 10:59 AM EDT URIC ACID Routine 04/15/2025 10:59 AM EDT VITAMIN D 25 HYDROXY Routine 04/15/2025 10:59 AM EDT HEMOGLOBIN A1C Routine 04/15/2025 10:59 AM EDT PROTEIN / CREATININE RATIO, URINE Routine 04/15/2025 10:59 AM EDT IRON PANEL (FE, TIBC, TSAT) Routine 04/15/2025 10:59 AM EDT LIPID PANEL Routine 04/15/2025 10:59 AM EDT COMPREHENSIVE METABOLIC PANEL Routine 04/15/2025 10:59 AM EDT CBC AND DIFFERENTIAL Routine 04/15/2025 10:59 AM EDT from Last 3 Months Results * (ABNORMAL) Iron Panel (Fe, TIBC, TSAT) (04/15/2025 10:59 AM EDT) TIBC 316 250 - 450 ug/dL [facility] UIBC 278 118 - 369 ug/dL [facility] Iron 38 27 - 139 ug/dL [facility] Iron Saturation (TSat) 12(L) 15 - 55 % [facility] 04/15/2025 10:5 9 AM EDT 04/15/2025 Kevon Powers MD LAB BLOOD ORDERABLES Final Re sult Performing Organization Address City/[facility]/ZIP Co de Phone Number [facility] [address] [place] [address] * (ABNORMAL) Protein, Total, Random Urine w/Creatinine (Protein/Creat Ratio) (04/15/2025 10:59 AM EDT) Pathologist [facility] Creatinine, Ur 143.2 Not Estab. mg/dL [facility] Protein, Ur 116.6 Not Estab. mg/dL [facility] Urine Protein/Creati nine Ratio 814(H) 0 - 200 mg/g creat [facility] 04/15/2025 10:5 9 AM EDT 04/15/2025 Kevon Powers MD LAB URINE ORDERABLES Final Re sult Performing Organization Address City/[facility]/ZIP Co de Phone Number [facility] [place] [address] [place] [address] * (ABNORMAL) Vitamin D 25 Hydroxy (04/15/2025 10:59 AM EDT) Vitamin D, 25-OH, Total 29.2(L) 30.0 - 100.0 ng/mL [facility] Comment: Vitamin D deficiency has been defined by the [place] of [employer] and an Endocrine Society practice guideline as a level of serum 25-OH vitamin D less than 20 ng/mL (1,2). The Endocrine Society went on to further define vitamin D insufficiency as a level between 21 and 29 ng/mL (2). 1. IOM ([place] of [employer]). 2010. Dietary reference intakes for calcium and D. [place]: The National Academies Press. 2. Tony MF, [place], David DUEÑAS, et al. Evaluation, treatment, and prevention of vitamin D deficiency: an Endocrine Society clinical practice guideline. JCEM. 2010; 96(7):1911-30. 04/15/2025 10:5 9 AM EDT 04/15/2025 us Kevon Powers MD LAB BLOOD ORDERABLES Final Re sult [facility] [address] [place] [address] * (ABNORMAL) CBC and Differential (04/15/2025 10:59 AM EDT) WBC 8.3 3.4 - 10.8 x10E3/uL [facility] RBC 3.64(L) 3.77 - 5.28 x10E6/uL [facility] Hemoglobin 10.1(L) 11.1 - 15.9 g/dL [facility] Hematocrit 32.6(L) 34.0 - 46.6 % [facility] MCV 90 79 - 97 fL [facility] MCH 27.7 26.6 - 33.0 pg [facility] MCHC 31.0(L) 31.5 - 35.7 g/dL [facility] RDW 14.8 11.7 - 15.4 % [facility] Platelets 228 150 - 450 x10E3/uL [facility] Neutrophils Relative 69 Not Estab. % [facility] Lymphocytes Relative 19 Not Estab. % [facility] Monocytes 8 Not Estab. % [facility] Eosinophils Relative 3 Not Estab. % [facility] Basophils Relative 1 Not Estab. % [facility] Neutrophils Absolute 5.8 1.4 - 7.0 x10E3/uL [facility] Lymphocytes Absolute 1.5 0.7 - 3.1 x10E3/uL [facility] Monocytes Absolute 0.7 0.1 - 0.9 x10E3/uL [facility] Eosinophils Absolute 0.2 0.0 - 0.4 x10E3/uL [facility] Basophils Absolute 0.0 0.0 - 0.2 x10E3/uL [facility] Immature Granulocytes 0 Not Estab. % [facility] Immature Grans (Absolute) 0.0 0.0 - 0.1 x10E3/uL [facility] 04/15/2025 10:5 9 AM EDT 04/15/2025 us Kevon Powers MD LAB BLOOD ORDERABLES Final Re sult [facility] [address] [place] [address] * Uric Acid (04/15/2025 10:59 AM EDT) Pathologist [facility] Uric Acid 7.5 3.1 - 7.9 mg/dL [facility] [place] Comment:Therapeutic target f or gout patients: <6.0 04/15/2025 10:5 9 AM EDT 04/15/2025 Kevon Powers MD LAB BLOOD ORDERABLES Final Re sult [facility] [place] [address] [place] [address] * (ABNORMAL) Phosphorus (04/15/2025 10:59 AM EDT) Pathologist [facility] Phosphorus 4.4(H) 3.0 - 4.3 mg/dL [facility] 04/15/2025 10:5 9 AM EDT 04/15/2025 Kevon Powers MD LAB BLOOD ORDERABLES Final Re sult Performing Organization Address City/[facility] Co de Phone Number [facility] [address] [place] [address] * (ABNORMAL) PTH, Intact (04/15/2025 10:59 AM EDT) Pathologist [facility] PTH 140(H) 15 - 65 pg/mL [facility] 04/15/2025 10:5 9 AM EDT 04/15/2025 Kevon Powers MD LAB BLOOD ORDERABLES Final Re sult Performing Organization Address City/[facility] Co de Phone Number [facility] [place] [address] [place] [address] * Magnesium (04/15/2025 10:59 AM EDT) Pathologist [facility] Magnesium 2.3 1.6 - 2.3 mg/dL [facility] 04/15/2025 10:5 9 AM EDT 04/15/2025 us Kevon Powers MD LAB BLOOD ORDERABLES Final Re sult Performing Organization Address City/[facility]/ZIP Co de Phone Number [facility] [address] [place] [address] * (ABNORMAL) Hemoglobin A1c (04/15/2025 10:59 AM EDT) Hemoglobin A1C 6.0(H) 4.8 - 5.6 % [facility] Comment: Prediabetes: 5.7 - 6.4 Diabetes: >6.4 Glycemic control for adults with diabetes: <7.0 04/15/2025 10:5 9 AM EDT 04/15/2025 us Kevon Powers MD LAB BLOOD ORDERABLES Final Re sult Performing Organization Address [facility]/ZIP Co de Phone Number [facility] [place] [address] [place] [address] * Ferritin (04/15/2025 10:59 AM EDT) Ferritin 26 15 - 150 ng/mL [facility] 04/15/2025 10:5 9 AM EDT 04/15/2025 us Kevon Powers MD LAB BLOOD ORDERABLES Final Re sult Performing Organization Address City/[facility] Co de Phone Number [facility] [employer] [address] [place] [address] * (ABNORMAL) Lipid panel (04/15/2025 10:59 AM EDT) Cholesterol 194 100 - 199 mg/dL [facility] Triglycerides 107 0 - 149 mg/dL [facility] HDL 52 >39 mg/dL [facility] VLDL Cholesterol Herber 19 5 - 40 mg/dL [facility] LDL Calculated 123(H) 0 - 99 mg/dL [facility] 04/15/2025 10:5 9 AM EDT 04/15/2025 us Kevon Powers MD LAB BLOOD ORDERABLES Final Re sult [facility] [address] [place] [address] * (ABNORMAL) Comprehensive Metabolic Panel (04/15/2025 10:59 AM EDT) Glucose 109(H) 70 - 99 mg/dL [facility] BUN 24 8 - 27 mg/dL [facility] Creatinine 3.30(H) 0.57 - 1.00 mg/dL [facility] eGFR CKD-EPI CR 2020 14(L) >59 mL/min/1.7 3 [facility] BUN/Creatinine Ratio 7(L) 12 - 28 [facility] Sodium 141 134 - 144 mmol/L [facility] Potassium 4.5 3.5 - 5.2 mmol/L [facility] Chloride 105 96 - 106 mmol/L [facility] Bicarbonate (CO2) 18(L) 20 - 29 mmol/L [facility] Calcium 8.7 8.7 - 10.3 mg/dL [facility] Total Protein 7.0 6.0 - 8.5 g/dL [facility] Albumin 4.2 3.8 - 4.8 g/dL [facility] Globulin 2.8 1.5 - 4.5 g/dL [facility] Total Bilirubin 0.3 0.0 - 1.2 mg/dL [facility] Alkaline Phosphatase 132(H) 44 - 121 IU/L [facility] AST (SGOT) 9 0 - 40 IU/L [facility] ALT (SGPT) 6 0 - 32 IU/L [facility] 04/15/2025 10:5 9 AM EDT 04/15/2025 us Kevon Powers MD LAB BLOOD ORDERABLES Final Re sult [facility] [address] [place] [address] from Last 3 Months Insurance [facility] Medicare [facility] Medicare Care Teams Machine [employer] Relationship Specialty Start Date End Date Mason Mccray MD [address] [place] [id number] PCP - General 09/15/20
--- OUTSIDE RECORDS SUMMARY | 2025-06-03 14:43 | XMS_ITS | Clinical Summary ---
Author Organization [facility] Address [address] [facility] [address] [place] [phone] Phone Care Team Providers Care Protocol Officer Name Role Phone Mason Mccray MD Primary Care Provider Mason Mccray MD Unavailable [phone] Akilah Maciel MD Unavailable [phone] Juan M Berry MD Unavailable Kevon Powers MD Unavailable Allergies Active Allergy Reactions Criticality Noted Date Comments Atorvastatin Headaches,Myalgia 09/27/2017 Codeine Phosphate Unknown 05/11/2022 Oxycodone-Aspirin Nausea And Vomiting Oxycodone-Acetaminophen Palpitations,Oth er (See Comments) High 09/27/2017 Syncope/Sweats Pravastatin Sodium Myalgia 09/27/2017 Rosuvastatin Other (See Comments),Myalgia High 07/02/2021 Severe stomach px, acid reflux, body aches and vomiting Simvastatin Myalgia 09/27/2017 Lisinopril Cough 09/27/2017 Medications losartan (COZAAR) 25 MG tablet Take 25 mg by mouth daily. Active alcohol PadM as directed 013 Active pen needle, diabetic (NOVOTWIST) 32 gauge x 1/5 NdleIndications :Type 2 diabetes mellitus with stage 4 chronic kidney disease, with long-term current use of insulin use 1 a day 50 each 11 019 Active glucosam/chond/ hyalu/CF borate (MOVE FREE JOINT HEALTH ORAL) Take 1 capsule by mouth daily. Active ammonium lactate (AMLACTIN) 12 % cream Apply 1 application. topically nightly at bedtime as needed. For foot 019 Active amoxicillin (AMOXIL) 500 MG tablet As needed prior to dental procedure. 021 Active acetaminophen (TYLENOL) 500 mg capsule 1 capsule as needed Orally every 6 hrs Active aspirin 81 MG EC tablet Take 81 mg by mouth daily. 023 Active famotidine (PEPCID) 20 MG tablet Take 20 mg by mouth 2 (two) times a day. As needed Active melatonin 5 mg Cap Take 5 mg by mouth nightly at bedtime. Active azelaic acid (FINACEA) 15 % gel APPLY THIN LAYER TO FACE FOR ROSACEA TWICE A DAY. FOLLOW WITH NON-COMEDOGENIC MOISTURIZER IN THE AM 024 Active docusate sodium (COLACE) 100 MG capsule 200 MG (2 X 100 MG) ORALLY BEDTIME 024 Active albuterol 90 mcg/actuation inhalerIndicati ons:Bronchospas m 2 PUFFS EVERY 4 HOURS NEEDED WHEEZING 8 g 4 024 Active levothyroxine (SYNTHROID, LEVOTHROID) 100 MCG tabletIndicatio ns:Hypothyroidi sm, unspecified type Take 1 tablet daily except Sundays take 1.5 tablets (150 mcg). 96 tablet 3 024 Active gabapentin (NEURONTIN) 300 MG capsuleIndicati ons:Chronic bilateral low back pain without sciatica TAKE 1 CAPSULE BY MOUTH EVERY DAY 90 capsule 2 024 Active insulin degludec-liragl utide (XULTOPHY 100/3.6) 100 unit-3.6 mg /mL (3 mL) InPnIndications :Type 2 diabetes mellitus with stage 4 chronic kidney disease, with long-term current use of insulin Inject 30 Units under the skin daily. DX:11.22 30 mL 3 024 Active traMADoL (ULTRAM) 50 mg tabletIndicatio ns:Chronic bilateral low back pain without sciatica TAKE 1 TABLET BY MOUTH 2 TIMES A DAY NEEDED ( LOW BACK AND SHOULDERS) 56 tablet 3 025 Active terazosin (HYTRIN) 2 MG capsuleIndicati ons:Essential hypertension TAKE 1 CAPSULE BY MOUTH EVERY NIGHT 90 capsule 3 025 Active esomeprazole (NEXIUM) 20 MG capsule Take 20 mg by mouth as needed. Active amLODIPine (NORVASC) 5 MG tabletIndicatio ns:Type 2 diabetes mellitus with diabetic peripheral angiopathy without gangrene, with long-term current use of insulin,Stage 4 chronic kidney disease,Polyneu ropathy associated with underlying disease,Essenti al hypertension Take 1 tablet (5 mg total) by mouth 2 (two) times a day. 180 tablet 3 025 Active Additional Information Patient taking differently: 10 mgOral 2 times daily, Reported on 05/24/2025 losartan (COZAAR) 50 MG tablet Take 50 mg by mouth daily. Active cholecalciferol (VITAMIN D3) 2,000 unit tablet Take 2,000 Units by mouth every morning. 025 Active ONETOUCH ULTRA2 METER Misc meterIndication s:Type 2 diabetes mellitus with stage 4 chronic kidney disease, with long-term current use of insulin by Miscellaneous route daily. E11.22 1 each 025 Active ONETOUCH ULTRA TEST Strp stripsIndicatio ns:Type 2 diabetes mellitus with stage 4 chronic kidney disease, with long-term current use of insulin 1 each by See Administration Instructions route 3 (three) times a day before meals. E11.22 300 strip 3 025 Active diazePAM (VALIUM) 5 MG tablet Take 5 mg by mouth as needed. Prior to botox procedure. 021 2024 Discontinued ONETOUCH ULTRASOFT lancets 1 each by Miscellaneous route 3 (three) times a day before meals. DX:E11.9 200 each 3 021 2024 Discontinued(N o longer taking) solifenacin (VESICARE) 10 MG tablet 2024 Discontinued(N o longer taking) ONETOUCH ULTRA TEST Strp stripsIndicatio ns:Type 2 diabetes mellitus with stage 4 chronic kidney disease, with long-term current use of insulin USE TO TEST 3 TIMES A DAY 300 strip 3 023 2024 Discontinued(R eorder) scopolamine (TRANSDERM-SCOP ) 1 mg over 3 daysIndications :Sea sickness, initial encounter Place 1 patch onto the skin every third day. 4 patch 1 024 2024 Discontinued(N o longer taking) lancets (ONETOUCH ULTRASOFT 2 LANCET) 30 gauge MiscIndications :Type 2 diabetes mellitus with stage 4 chronic kidney disease, with long-term current use of insulin 1 each by Miscellaneous route 4 (four) times a day before meals and nightly. 400 each 3 025 2024 Discontinued(E rror) Active Problems Problem Noted Date Diagnosed Date Secondary hyperparathyroidism 06/11/2024 Polyneuropathy associated with underlying diseas e 07/29/2020 Assessment & Plan (05/08/2024 11:31 AM EDT): H/o DPN Has issues with symptoms at night only Taking Gabapentin at bedtime, advised to try this earlier in the evening so that it may be more effective by the time Jordana is getting ready for bed Type 2 diabetes mellitus wit h diabetic peripheral angiopathy without gangrene, with long-term current use of insulin 07/29/2020 Assessment & Plan (02/11/2023 1:00 PM EDT): Followed for carotid stenosis, will be seeing new vascular specialist soon A1c is excellent Not interested in CGM technology which would likely prove helpful in alerting Jordana to potential for hypoglycemia as her FPG are consistently at low end of desired range and there may be other periods of the day/night during which she is at risk We discussed importance of a cholesterol lowering medication, Jordana has trialed several different statins and has had side effects to each of these, we discussed PCSK9i therapy briefly and Jordana has been counseled on this by other providers Localized swelling of right thumb 08/13/2019 Assessment & Plan (08/13/2019 12:38 PM EST): 2-week history of swelling pain and mild loss of function in the right thumb with left-handed dominance. Unclear what caused the inflammation but the swelling is apparent as is moderate loss of function. Patient referred to Dr. Flanagan for further evaluation, for now cold packs to take down swelling and Capzasin glue stick to treat topically. Temporary use of nonsteroidals acceptable. Severe obesity (BMI >= 40) 01/23/2018 Assessment & Plan (05/24/2025 1:06 PM EDT): Jordana's weight has been stable in recent past, down modestly since spring Weight loss is likely to help insulin sensitivity and lead to lower insulin requirement Strongly encouraged to continue efforts at healthy eating and to be more consistently active, this would provide benefits of insulin sensitivity Assessment & Plan (11/19/2024 11:44 AM EDT): Jordana's weight has increased since last fall, the increase is more recent she feels due to increase in stressors Increase in weight is likely to worsen insulin resistance and lead to higher insulin requirement which is likely the reason for recent increase in FPG, unfortunately increase in insulin requirement is likely to hamper weight loss efforts Strongly encouraged to continue efforts at healthy eating and to be more consistently active, this would provide benefits of insulin sensitivity Assessment & Plan (08/16/2023 12:21 PM EST): Jordana's weight has been generally consistent over the past year Encouraged to continue efforts at healthy eating and staying active Assessment & Plan (02/11/2023 12:50 PM EDT): Jordana has gained weight gradually but consistently since last fall Encouraged to continue efforts at healthy eating and staying active Assessment & Plan (08/13/2022 12:40 PM EST): Jordana has regained about 5lb since our last visit We discussed the relationship between weight gain and insulin requirement, Jordana is likely on more insulin than needed based on her FPG and recent A1c results, lowering her insulin requirement may in fact aid her weight loss efforts Encouraged to continue efforts at healthy eating and staying active Assessment & Plan (09/29/2020 6:01 PM EST): We discussed importance of healthy lifestyle Therapy with GLP1ra may help Jordana with weight loss efforts Assessment & Plan (08/10/2018 5:21 PM EST): Increase in insulin may further complicate weight gain which will increase insulin resistance and cause increased need for higher insulin dosage, advised to try to exercise, able to tolerate water activity and encouraged to look for a facility nearby her home which may offer her an opportunity to do this yearround Assessment & Plan (03/13/2018 6:06 PM EDT): BMI 48-49 in the past 2 months Weight loss of 15lb since early 2017 Continued weight loss will help improve insulin sensitivity and likely reduce insulin requirement while improving blood sugar control Stage 4 chronic kidney disease 01/23/2018 Diabetic renal disease 09/30/2017 Essential hypertension 09/30/2017 Assessment & Plan (05/24/2025 1:04 PM EDT): Blood pressure is in good range today Continues on regimen which includes ARB Followed by nephrology and cardiology Goal BP ideally <130/80 Assessment & Plan (11/19/2024 11:44 AM EDT): Blood pressure is in good range today Continues on regimen which includes ARB Followed by nephrology and cardiology Goal BP ideally <130/80 Assessment & Plan (05/08/2024 11:33 AM EDT): Blood pressure is in good range today Continues on regimen which includes ARB Followed by nephrology and cardiology Goal BP ideally <130/80 Assessment & Plan (08/16/2023 12:22 PM EST): Blood pressure is elevated today Continues on regimen which includes ARB Followed by nephrology and cardiology Goal BP ideally <130/80 Assessment & Plan (02/11/2023 12:55 PM EDT): Blood pressure is borderline today Continues on regimen which includes ARB Followed by nephrology and cardiology Goal BP ideally <130/80 Assessment & Plan (08/13/2022 12:39 PM EST): Blood pressure is elevated today and has been borderline at best Continues on regimen which includes ARB Followed by nephrology and cardiology Goal BP ideally <130/80 Assessment & Plan (02/05/2022 12:19 PM EDT): Blood pressure is elevated today and has been borderline at best Continues on regimen which includes ARB Followed by nephrology Goal BP ideally <130/80 Assessment & Plan (08/07/2021 1:53 PM EST): Blood pressure is elevated today and has been borderline at best Continues on regimen which includes ARB and well-managed Followed by nephrology Goal BP ideally <130/80 Assessment & Plan (02/05/2021 1:23 PM EDT): Blood pressure is elevated today and has been borderline at best Continues on regimen which includes ARB Followed by nephrology May need adjustment of antihypertensive meds to optimize blood pressure, ideally <130/80 Assessment & Plan (09/29/2020 5:55 PM EST): Blood pressure is elevated today and has been borderline at best Continues on regimen which includes ARB May need adjustment of antihypertensive meds to optimize blood pressure, ideally <130/80 Assessment & Plan (03/27/2020 2:04 PM EDT): Blood pressure continues to be borderline given h/o diabetes related CKD, goal <130/80, continues on ARB and CCB therapy Assessment & Plan (09/13/2019 6:36 PM EST): Blood pressure continues to be borderline given h/o diabetes related CKD, goal <130/80, continues on ARB and CCB therapy Assessment & Plan (08/13/2019 12:36 PM EST): Systolic is elevated today and in June was mildly elevated, continue to monitor for salt in diet, regular exercise to help healthy blood pressure. Nonsteroidals for limited time only but not continue. Assessment & Plan (02/08/2019 10:46 PM EDT): Blood pressure is just above desirable goal given h/o diabetes related CKD, continues on ARB therapy Assessment & Plan (08/10/2018 5:22 PM EST): Blood pressure is under reasonable control on current regimen which includes ARB Assessment & Plan (03/13/2018 6:09 PM EDT): Blood pressure elevated at today's visit generally well controlled on current regimen which includes ARB Hypercholesterolemia 09/30/2017 Assessment & Plan (05/24/2025 1:05 PM EDT): Intolerant of several statin therapies in the past, follows with cardiology and PCSK9i has been discussed in the past but not started Most recent lipid panel reviewed, LDL is above goal given Jordana's risk factors Encouraged to eat a healthy balanced diet and to stay active Assessment & Plan (11/19/2024 11:42 AM EDT): Intolerant of several statin therapies in the past, follows with cardiology and PCSK9i has been discussed but not started Most recent lipid panel reviewed, LDL is above goal given Jordana's risk factors Encouraged to eat a healthy balanced diet and to stay active Assessment & Plan (05/08/2024 11:33 AM EDT): Intolerant of several statin therapies in the past, follows with cardiology and PCSK9i has been discussed Most recent lipid panel reviewed, LDL is above goal given Jordana's risk factors Encouraged to eat a healthy balanced diet and to stay active Assessment & Plan (08/16/2023 12:20 PM EST): Intolerant of several statin therapies in the past, cardiology has discussed PCSK9i Most recent lipid panel reviewed, LDL is above goal given Jordana's risk factors Encouraged to eat a healthy balanced diet and to stay active Assessment & Plan (02/11/2023 12:51 PM EDT): Intolerant of several statin therapies in the past, cardiology has discussed PCSK9i, we revisited this therapy briefly today and she is reassured that this tends to be very well tolerated Most recent lipid panel reviewed, LDL is above goal given Jordana's risk factors Encouraged to eat a healthy balanced diet and to stay active Assessment & Plan (08/13/2022 12:40 PM EST): Intolerant of statin therapies in the past, cardiology has discussed PCSK9i, we revisited this therapy briefly today and she is reassured that this tends to be very well tolerated Most recent lipid panel reviewed, LDL is above goal given Jordana's risk factors Encouraged to eat a healthy balanced diet and to stay active Assessment & Plan (02/05/2022 12:25 PM EDT): Intolerant of statin therapies in the past, cardiology has discussed PCSK9i but Jordana is unsure about this, we discussed this therapy briefly today and she is reassured that this tends to be very well tolerated Most recent lipid panel reviewed, LDL is modestly above goal We discussed possible benefit from red rice yeast or similar supplement if tolerated Encouraged to eat a healthy balanced diet and to stay active Assessment & Plan (08/07/2021 1:54 PM EST): Intolerant of statin therapies in the past Most recent lipid panel reviewed, LDL is modestly above goal Encouraged to eat a healthy balanced diet Assessment & Plan (02/05/2021 1:29 PM EDT): Intolerant of statin therapies in the past Most recent lipid panel reviewed, LDL is modestly above goal Encouraged to eat a healthy balanced diet Assessment & Plan (09/29/2020 6:00 PM EST): Intolerant of statin therapy Has upcoming routine labs including lipid panel Assessment & Plan (03/27/2020 2:04 PM EDT): Most recent lipid panel (Jun 2019) reviewed, LDL at goal Intolerant of statin therapy With worsened diet in the past several months lipid panel may have changed, encouraged to return to healthier eating and being more active Assessment & Plan (09/13/2019 6:34 PM EST): Most recent lipid panel reviewed, LDL at goal Intolerant of statin therapy Encouraged to continue healthy diet Assessment & Plan (02/08/2019 10:45 PM EDT): Most recent lipid panel reviewed, stable LDL Improved diet may help modestly Intolerant of statin therapy Assessment & Plan (03/13/2018 6:03 PM EDT): Most recent LDL in low 100s, goal LDL is <100 Has not tolerated several statins in the past Calculus of kidney 09/30/2017 Spinal stenosis 09/30/2017 Type 2 diabetes mellitus wit h stage 4 chronic kidney disease, with long-term current use of insulin 09/22/2017 Assessment & Plan (05/24/2025 1:10 PM EDT): Continues on Xultophy 30u daily, she has had no hypoglycemia on this dosage and FPG continue to frequently be in desired range We had discussed consideration for modest dosage adjustment for more persistent elevations in fasting glucose values, a ~10% increase in dosage to 33-34u daily, but this has not been necessary; we discussed that insulin requirement may be affected by dialysis once that starts Most recent GFR is 19, Jordana is following with nephrology regularly and reports that she is now in Stage 5 CKD which would indicate GFR <15, we do not have most recent lab results available for review, her blood pressure is in good control today, goal is <130/80 given CKD We discussed the likely value of CGM technology once she starts dialysis in order to evaluate the effects of this on glycemia and insulin requirement, she will consider this Jordana will return to meet with me in 6 months, she is advised to contact me with any questions or concerns in the interim Assessment & Plan (11/19/2024 11:41 AM EDT): Continues on Xultophy 30u daily, she has had no hypoglycemia on this dosage and FPG have been frequently in desired range though more readings have been above goal (>130) than in the past likely owing to increased stressors We discussed consideration for modest dosage adjustment if fasting glucose values are more consistently above goal, advised to consider a ~10% increase in dosage to 33-34u daily and monitor patterns; we discussed that dose adjustments should be done after several days of glucose pattern monitoring rather than day to day based on morning glucose Most recent GFR is 19 and this has been stable since our last visit, Jordana is following with nephrology regularly, her blood pressure is in good control today, goal is <130/80 given CKD Advised to continue to be as active as consistently as possible, she has been walking more though still not consistently, this has been difficult due to very cold winter and she hopes to be more active with approaching spring We discussed the impact of stressors on insulin sensitivity, weight management and glucose control Jordana will return to meet with me in 6 months, she is advised to contact me with any questions or concerns in the interim Assessment & Plan (05/08/2024 11:37 AM EDT): Continues on Xultophy 30u daily, she has had no hypoglycemia on this dosage and FPG are consistently in desired range Most recent GFR is 18 and this has been stable since our last visit, Jordana is following with nephrology regularly, her blood pressure is in good control today, goal is <130/80 given CKD Advised to continue to be as active as consistently as possible, we discussed some strategies in getting started with more of a routine with this, and to continue healthy eating habits Due to COVID infection in March, advised to wait until June to get updated COVID vaccine, also advised to get seasonal flu vaccine as well Jordana will return to meet with me in 6 months, she is advised to contact me with any questions or concerns in the interim Assessment & Plan (02/20/2024 10:37 AM EDT): Control is good based upon the patient's SMBG readings. No frequent or severe hypoglycemia. Will maintain her regimen. Continue to work on eating healthy and being active. To call or message with any issues managing her glucose levels. Up to date with ophtho. Sees podiatry. Doing labs today with PCP and renal orders Assessment & Plan (08/16/2023 12:22 PM EST): Continues on Xultophy 30u daily, she has had no hypoglycemia on this dosage and FPG are more consistently in desired range Most recent GFR is 18 and Jordana is following with nephrology regularly, her blood pressure is elevated today, goal is <130/80 given CKD We discussed CGM technology at our last visit, Jordana was not interested in this at this time Advised to continue to be as active as consistently as possible Jordana will return to meet with me in 6 months, she is advised to contact me with any questions or concerns in the interim Assessment & Plan (02/11/2023 12:54 PM EDT): Continues on Xultophy 30u daily, she has had no hypoglycemia on this dosage and FPG are more consistently in desired range Most recent GFR is 20 and Jordana is following with Dr. Fischer regularly, her blood pressure is borderline, goal is <130/80 given CKD We discussed CGM technology, Jordana is not interested in this at this time Advised to continue to be as active as consistently as possible Jordana will return to meet with me in 6 months, she is advised to contact me with any questions or concerns in the interim Assessment & Plan (08/13/2022 1:07 PM EST): Current dosing of Xultophy 45u daily is still likely higher than Jordana needs, she reduced from 50u after our last visit several months ago, we discussed her most recent fasting blood sugar patterns and that these are lower than they need to be, we discussed a change to 40 units daily and Jordana is agreeable, we discussed further reductions if FPG remain in low normal range We also discussed possible impact of GLP1ra therapy on Jordana's GI symptoms, she has been off statin for over a year but still having GI upset which seemed exacerbated by this, she may benefit from eliminating GLP1ra therapy at least temporarily, Jordana would like to just reduce her dose as discussed above and consider stopping this (replacing with Tresiba alone) if her GI symptoms continue at our next visit GFR is very low but stable and Jordana is following with Dr. Fischer regularly, her blood pressure is in good control today Advised to continue to be as active as she can Jordana will return to meet with me in 6 months, she is advised to contact me with any questions or concerns in the interim Assessment & Plan (02/05/2022 12:24 PM EDT): Current dosing of Xultophy 50u daily is likely higher than Jordana needs, we discussed her fasting blood sugar patterns and that these are lower than they need to be, this along with occ daytime symptoms suggestive of hypoglycemia indicate a need for dose reduction, we discussed a change to 45 units daily and Jordana is agreeable, we discussed further reductions if FPG remain in low normal range We discussed importance of eating a healthy balanced diet at more consistent times, though Jordana should not have to eat defensively to reduce risk of low blood sugars, if she feels she is needing to have frequent snacks to prevent or treat lows then she is likely on too much insulin We revisited the improvement in glucose control with improvement in sleep patterns as this improves insulin sensitivity GFR is very low and Jordana is following with Dr. Fischer regularly, he blood pressure is elevated above goal Advised to continue to be as active as consistently as possible Jordana will return to meet with me in 6 months, she is advised to contact me with any questions or concerns in the interim Assessment & Plan (08/07/2021 1:52 PM EST): Jordana is tolerating Xultophy well with an improved A1C to 5.6% and a 12 lb weight loss following her recent left knee arthroplasty. She has been active with physical therapy post knee surgery. Her daughter's has been preparing her meals since her surgery which she has not had an appetite for. She has experienced sporadic lows to the 90s in the morning when she has had a very small dinner the previous night, but is symptomatic and able to correct before her glucose decreases further. Reviewed hypoglycemia prevention, recognition and management. Encouraged small diabetic snack at bedtime, especially if she has had a smaller dinner. We discussed recent routine lab results, GFR is very low and Jordana is following with Dr. Fischer, she is reassured that her current antihyperglycemic medication regimen will not negatively affect her renal function Encouraged to continue to make healthy diet choices and remain as active as tolerates. Encouraged to contact us with any questions or concerns. Follow up in 6 months. Assessment & Plan (02/05/2021 1:28 PM EDT): Current dosing of Tresiba and Victoza are appropriate for consideration of change to Xultophy 50u daily, we discussed this and Jordana is agreeable, she is reassured that her doses of basal insulin and Victoza will be exactly the same but delivered in one injection daily We discussed importance of eating a healthy balanced diet at more consistent times, having a snack between meals will likely help to reduce excessive hunger at the following meal compared to fasting for a long period, this should also help stabilize blood sugar patterns We discussed recent routine lab results, GFR is very low and Jordana is following with Dr. Fischer, she is reassured that her current antihyperglycemic medication regimen will not negatively affect her renal function Advised to try to be as active as she is able given her limitations, improvement in mobility after knee surgery should have positive effects on glucose control and also weight management Jordana will return to meet with me in 6 months, she is advised to contact me with any questions or concerns in the interim Assessment & Plan (09/29/2020 6:00 PM EST): Currently on higher dose of Tresiba however [...] contact me with any questions or concerns Assessment & Plan (03/27/2020 2:09 PM EDT): Worsened glucose control however A1c is in good range Will continue on current basal insulin only regimen, we discussed need for an adjustment in this dosage if FPG remains consistently >130 We discussed the importance of changing insulin pen needle prior to every injection Jordana has seen the effect of evening meal choices on the next day FPG and plans to be more mindful about her diet in general, will return to the principles she knows from [facility] and apply these to her daily meal planning Encouraged to be more active May need steroid injection in knee and/or hip due to pain, we revisited elevated glucose which may occur for several days after intraarticular steroid injection, Jordana is encouraged to call us with any questions or concerns regarding blood sugar patterns Advised to call with any questions or concerns, we will meet again in 6 months, Jordana declines a visit with CDE at this time Assessment & Plan (09/13/2019 6:38 PM EST): Requiring only basal insulin at this time and lower dosage since weight loss We discussed monitoring insulin need based on FPG, increase in activity and further weight loss will reduce insulin requirement, encouraged to continue to reduce insulin as needed to reduce risk of hypoglycemia Encouraged to continue healthy eating and to stay active Advised to call with any questions or concerns Assessment & Plan (02/08/2019 10:50 PM EDT): Blood sugar control on current meal plan is very good and Jordana is requiring very rare mealtime insulin She has had weight loss and we discussed the likely need for reduced basal insulin with continued weight loss We discussed goal for FPG and using fasting blood sugar patterns to adjust Tresiba as needed Encouraged to continue efforts at healthy eating Seeing podiatry regularly, will be getting diabetic shoes Advised to call with any questions or concerns Assessment & Plan (08/10/2018 5:21 PM EST): We discussed optimizing the basal insulin today which would likely improve FPG, Jordana is aware that she may require a reduction in her mealtime bolus dose due to an increase in the background insulin dosage, she is advised to keep an eye on blood sugar patterns Will continue her current meal time insulin doses for now, we discussed adjustments for mealtime insulin based on meal quality, size and premeal blood sugar Advised to call with any questions or concerns Assessment & Plan (03/13/2018 5:55 PM EDT): Suboptimal control on current insulin regimen, we increased the basal insulin dosage and modestly decreased mealtime dosage, this may help to stabilize blood sugars and improve fasting hyperglycemia Would benefit from diabetes education and is agreeable to return to meet with our educator staff Advised dietary improvements, avoiding high carb foods in combination at same meal; activity is limited due to OA, has access to pool now and we discussed the value of this activity, advised also to look for options for indoor pool access in the colder months Encouraged to call with any questions or concerns Resolved Problems Problem Noted Date Diagnosed Date Resolved Date Obesity (BMI 30-39.9) 01/11/20192022 Assessment & Plan (02/05/2022 12:28 PM EDT): Jordana lost 12lb between fall and August last year, she has maintained this weight, overall she has lost ~30lb over the past year Encouraged to continue efforts at healthy eating and staying active Assessment & Plan (08/07/2021 1:57 PM EST): Jordana has lost 12 lb since her last visit She has a decreased appetite with her current food preparation by her family She has also remained active with physical therapy post left knee surgery Encouraged to continue to remain active and make healthy diet choices as possible Assessment & Plan (02/05/2021 1:31 PM EDT): Jordana had lost significant weight on WW in the past She has regained ~20-25lb since her terry in early 2019 Encouraged to continue efforts at healthy balanced eating Increased activity after knee surgery may also be very helpful in her weight loss efforts We discussed the metabolic benefits associated with good quality sleep, this will likely lead to improvement in glucose control as well as weight management Assessment & Plan (09/13/2019 6:33 PM EST): Jordana has lost significant weight on weight watchers She is encouraged to continue with healthy lifestyle Advised that with weight loss and increased activity she will improve insulin sensitivity and require less insulin Assessment & Plan (02/08/2019 10:52 PM EDT): Has had nearly 20lb weight loss over past 4 months Should require less insulin with continued weight loss as this improves insulin sensitivity, lower insulin requirement will likely lead to more weight loss Encouraged to continue healthy eating changes Stage 3 chronic kidney disease 09/30/2017 03/13/2018 Chronic renal failure, stage 3 (moderate) 09/30/2017 03/13/2018 Encounters Date Type Department Care Team Description 05/30/2025 Orders Only [facility] Internal Medicine [address] [place] [address] ProviderPaulette MD 05/24/2025 10:20 AM EDT Office Visit [facility] [address] [place] [address] Melina Feliz MD Type 2 diabetes mellitus with stage 4 chronic kidney disease, with long-term current use of insulin (Primary Dx); Severe obesity (BMI >= 40); Hypercholesterolemia; Essential hypertension 05/24/2025 Telephone [facility] Internal [facility] [address] [place] [address] Mason Mccray MD referral to OBGYN 05/20/2025 11:30 AM EDT Office Visit [facility] Internal [facility] [address] [place] [address] Mason Mccray MD Acute pharyngitis, unspecified etiology (Primary Dx); Benign essential hypertension; Polyneuropathy associated with underlying disease; Chronic renal failure, stage 5 05/20/2025 Telephone [facility] Internal [facility] [address] [place] [address] Mason Mccray MD Results 05/07/2025 Orders Only [facility] Internal [facility] [address] [place] [address] ProviderPaulette MD 03/27/2025 Orders Only [facility] Internal [facility] [address] [facility] [place] [address] Provider, MD Paulette from Last 3 Months Immunizations Immunization Administration Dates Next Due COVID-19 (Pre-06/27) Moderna Vaccine, Bivalent 6mo+ 06/22/2022 COVID-19 (Pre-06/27) Moderna Vaccine, mRNA, PF 06/19/2022,11/26/2020,10/29/2020 INFLUENZA, SPLIT VIRUS, TRIVALENT PF 05/07/2019, 09/05/2018 INFLUENZA, SPLIT VIRUS, TRIV ALENT W/ PRESERVATIVE IM 07/06/2012,06/23/2011 Influenza High-Dose Quadriva lent Preservative Free IM 06/18/2023,06/14/2022,06/01/2021 Influenza High-Dose Trivalen t Preservative Free IM 06/11/2024,06/01/2018,09/30/2017,06/03,07/18/2015,06/21/2014,06/07/2013 Influenza Quadrivalent Adjuv anted Preservative Free IM 06/05/2020 Influenza Quadrivalent Prese rvative Free IM 06/18/2019 Influenza, Unspecified Formulation 06/01/2021, Pneumococcal conjugate PCV13 06/30/2017,08/09/20 16 Pneumococcal polysaccharide PPSV23 11/20/2014,,07/06/2004 RSV Vaccine (monovalent, adjuvanted) 06/08/2024 Tdap 11/17/2010 Zoster live 07/06/2012 Zoster recombinant 03/16/2020,07/14/2019 Family History Medical History Relation Comments No Known Problems Brother 2 No Known Problems Brother 3 No Known Problems Brother 4 No Known Problems Brother 5 No Known Problems Brother 6 Diabetes Father Hypertension Father Thyroid disease Father Diabetes Mother Hypertension Mother Relation Status Comments Brother 1 (Age 44) brain cancer r elated to agent orange Brother 2 Alive Brother 3 Alive medical issues Brother 4 Alive Brother 5 Alive Brother 6 Alive Father Mother Social History Tobacco Use Types Packs/Day Years Used Date Smoking Tobacco: Former Cigarettes 2 36 0 01/20/1960 - 09/05/1995 Passive Smoke Exposure: Never Smokeless Tobacco: Never Tobacco Cessation:Counseling Given: Not Answered Comments:quit 23 years ago Alcohol Use Standard [...] Orientation Straight 06/23/2023 11 :35 AM EDT Last Filed Vital Signs Vital Sign Reading Time Taken Comments Blood Pressure 126/76 05/24/2025 10:05 AM EDT Pulse 71 05/24/2025 10:05 AM EDT Temperature 36.4 C (97.6 F) 05/20/2025 11:32 AM EDT Respiratory Rate 16 05/20/2025 11:3 2 AM EDT Oxygen Saturation 97% 05/24/2025 10: 05 AM EDT Inhaled Oxygen Concentration - - Weight 112.4 kg (247 lb 12.8 oz) 2024 10:05 AM EDT Height 162 cm (5' 3.78 ) 05/24/2025 10: 05 AM EDT Body Mass Index 42.83 05/24/2025 10:05 AM EDT Plan of Treatment Upcoming Encounters Date Type Department Care Team (Late st Contact Info) Description 10/04/2025 3:00 PM EST Office Visit [facility] Internal Medicine [address] [place] [address] Mason Mccray MD [address] [place] [address] 11/25/2025 2:40 PM EDT Office Visit [facility] [address] [place] [address] Melina Feliz MD [address] [facility], 1st [place] [address] Health Maintenance Due Date Last Done Comments COLOGUARD 1993 FOBT 1993 SIGMOIDOSCOPY 1993 VIRTUAL COLONOSCOPY 1993 COLONOSCOPY 03/22/2019 03/22/2014 Adult Td,Tdap Booster 11/17/2020 11/17/2010 COLORECTAL CANCER SCREENING 12/13/2020 FIT TEST 12/12/2021 12/12/2020 INFLUENZA VACCINE (#1) 2025 , 06/18/2023, 06/18/2023, Additional history exists COVID-19 VACCINE ( season) 2025 06/18/2023, 06/22/2022, 06/19/2022, Additional history exists DEPRESSION SCREENING 06/27/2025 06/27/2024, 07/29/20 20 CREATININE LEVEL 06/28/2025 06/28/2024, , 08/15/2023, Additional history exists POTASSIUM LEVEL 06/28/2025 06/28/2024, 02/03, 08/15/2023, Additional history exists TSH LEVEL 06/28/2025 06/28/2024, 02/03, 02/07/2023, Additional history exists HEMOGLOBIN A1C 10/16/2025 04/15/2025, 04/05, 11/19/2024, Additional history exists BLOOD PRESSURE 11/21/2025 05/24/2025 LIPID PANEL 04/15/2026 04/15/2025, 06/06, 02/20/2024, Additional history exists DIABETIC EYE EXAM 05/29/2026 05/29/2025, , 08/08/2024, Additional history exists OSTEOPOROSIS SCREENING INITIAL (ONE-TIME) Completed 06/26/2009 PNEUMOCOCCAL VACCINES (50+ years) Completed 06/30/2017, 08/09/2016, 11/20/2014, Additional history exists HEPATITIS C SCREENING Completed 12/01/2018, 019 ZOSTER VACCINES Completed 03/16/2020, 05/2019, 07/06/2012 RSV VACCINE Completed 06/08/2024 SMOKING STATUS SCREENING (Once After 26 Yrs) Completed 05/24/2025 HEPATITIS A VACCINES Aged Out No long er eligible based on patient's age to complete this topic HIB VACCINES Aged Out No longer eligi ble based on patient's age to complete this topic MENINGOCOCCAL VACCINES (ACWY) Aged Out No longer eligible based on patient's age to complete this topic MENINGOCOCCAL VACCINES (B) Aged Out N o longer eligible based on patient's age to complete this topic Medical Devices Not on file Procedures Procedure Name Priority Date/Time Associated Diagnosis Comments HM DIABETES EYE EXAM FOR RESULT ENTRY ONLY Routine 05/29/2025 2:40 PM EDT THROAT CULTURE Routine 05/20/2025 12:17 PM EDT Acute pharyngitis, unspecified etiology POCT RAPID STREP A Routine 05/20/2025 12 :10 PM EDT POCT COVID-19 RT-PCR/INFLUENZA A & B/RSV CEPHEID Routine 05/20/2025 12:08 PM EDT HM DIABETES EYE EXAM FOR RESULT ENTRY ONLY Routine 04/30/2025 3:21 PM EDT POCT HEMOGLOBIN A1C Routine 11/19/2024 1 1:45 AM EDT Type 2 diabetes mellitus with stage 4 chronic kidney disease, with long-term current use of insulin LIPID PANEL Routine 06/28/2024 1:12 PM EDT Hypercholesterolemia TSH WITH REFLEX Routine 06/28/2024 1:12 PM EDT Hypercholesterolemia Essential hypertension COMPREHENSIVE METABOLIC PANEL Routine 06/28/2024 1:12 PM EDT Hypercholesterolemia Type 2 diabetes mellitus with stage 4 chronic kidney disease, with long-term current use of insulin Essential hypertension HC BLOOD OCCULT FECAL HGB DETER IA QUAL FECES 1-3 Routine 12/12/2020 6:00 AM EDT Screen for colon cancer HEPATITIS C ANTIBODY, QUALITATIVE Routine 12/01/2018 12:21 PM EDT Need for hepatitis C screening test HM COLONOSCOPY FOR RESULT ENTRY ONLY Routine 03/22/2014 OUTSIDE BONE DENSITY SCREENING Routine 06/26/2009 from Last 3 Months or Most Recently Relevant to Health Maintenance Results * DIABETES EYE EXAM FOR RESULT ENTRY ONLY (05/29/2025 2:40 PM EDT) Only the most recent of2 resultswithin the time period is included. Historical Provider MD HEALTH MAINTENANCE Final Result * (ABNORMAL) Throat Culture (05/20/2025 12:17 PM EDT) Special Requests None 05/20/2025 12:17 PM EDT [facility] Beta Strep Culture MIXED ORGANISMS RESEMBLING OROPHARYNGEAL MERLYN(A) 05/21/2025 8:15 AM EDT [facility] Other (Throat) 05/20/2025 12 :17 PM EDT 05/20/2025 8:14 PM EDT Mason Mccray MD MICROBIOLOGY - GENERAL ORDERA BLES Final Result Performing Organization Address City/[facility]/ZIP Co de Phone Number [address] [address] * POCT Rapid Strep A (05/20/2025 12:10 PM EDT) [facility] Strep A, PCR Not Detected Not Detected B [facility] 05/20/2025 12:1 0 PM EDT 05/20/2025 12:40 PM EDT Mason Mccray MD POINT OF CARE TEST ORDERABLES Final Result Performing Organization Address City/[facility]/ZIP Co de Phone Number [facility] [address] [place] [address], [facility] [phone] * POCT COVID-19 RT-PCR/Influenza A & B/RSV (Cepheid) (05/20/2025 12:08 PM EDT) Pathologist [facility] RSV PCR Negative Negative [facility] SARS-CoV-2 (COVID-19) Negative Negative [facility] Influenza A PCR Negative Negative [facility] Influenza B PCR Negative Negative [facility] 05/20/2025 12:0 8 PM EDT 05/20/2025 12:50 PM EDT us Mason Mccray MD POINT OF CARE TEST ORDERABLES Final Result Performing Organization Address City/State/[facility] Co de Phone Number [facility] [address] [place] [address], [facility] [phone] * (ABNORMAL) Comprehensive metabolic panel (06/28/2024 1:12 PM EDT) SODIUM 138 133 - 146 mmol/L [facility] POTASSIUM 4.8 3.3 - 5.1 mmol/L [facility] Comment:Specimen slightly he molyzed, result may be falsely elevated. CHLORIDE 104 96 - 108 mmol/L [facility] CO2 24 21 - 35 mmol/L [facility] BUN 21(H) 6 - 19 mg/dL [facility] CREATININE 2.60(H) 0.5 - 1.5 mg/dL [facility] GLUCOSE 109(H) 70 - 99 mg/dL [facility] ALBUMIN 4.0 3.9 - 4.8 g/dL [facility] TOTAL PROTEIN 7.5 6.5 - 8.0 g/dL [facility] CALCIUM 9.2 8.4 - 10.3 mg/dL [facility] ALKALINE PHOSPHATASE 128(H) 39 - 117 U/L [facility] TOTAL BILIRUBIN 0.3 0.0 - 1.2 mg/dL [facility] AST 12 0 - 37 U/L [facility] ALT 7 0 - 40 U/L [facility] GLOBULIN 3.5 1 - 4.8 g/dL [facility] EGFR 19(L) >59 mL/min/1.7 3m2 [facility] Comment:Estimated glomerular filtration rate calculated using the CKD-EPI refit equation. ANION GAP 15 10 - 20 mmol/L [facility] Blood 06/28/2024 1:12 PM EDT 06/28/2024 1:15 PM EDT us Mason Mccray MD LAB BLOOD ORDERABLES Final Re sult [address] [address] * TSH with reflex (06/28/2024 1:12 PM EDT) TSH 1.46 0.27 - 4.20 uIU/mL [facility] Blood 06/28/2024 1:12 PM EDT 06/28/2024 1:15 PM EDT us Mason Mccray MD LAB BLOOD ORDERABLES Final Re sult Performing Organization Address [facility] Co de Phone Number [address] [address] * (ABNORMAL) Lipid panel (06/28/2024 1:12 PM EDT) HDL 47 mg/dL [facility] Comment: Interpretation <40 mg/dL: Low HDL cholesterol (major risk factor for CHD) Greater than or equal to 60 mg/dL: High HDL cholesterol ( negative risk factor for CHD) HDL - cholesterol is affected by a number of factors, e.g. smoking, excerise, hormones, sex and age. CHOLESTEROL 190 0 - 240 mg/dL [facility] TRIGLYCERIDES 174(H) 30 - 160 mg/dL [facility] LDL 108 50 - 129 mg/dL [facility] Comment: LDL levels in terms of risk for coronary heart disease: <100 mg/dL: Optimal 100-129 mg/dL: Near or above optimal 130-159 mg/dL: Borderline high 160-189 mg/dL: High >190 mg/dL: Very High CARDIAC RISK RATIO 4.0 3.3 - 4.4 C [facility] Blood 06/28/2024 1:12 PM EDT 06/28/2024 1:15 PM EDT us Mason Mccray MD LAB BLOOD ORDERABLES Final Re sult [address] [address] * (ABNORMAL) Fecal immunochemical test x1 (FIT) (12/12/2020 6:00 AM EDT) [facility] Immuno Fecal Occult Positive(A ) Negative [facility] Stool (Stool) 12/12/2020 6:0 0 AM EDT 12/12/2020 10:53 AM EDT Mason Mccray MD BODY FLUIDS AND STOOLS ORDERA BLES Final Result Performing Organization Address [facility]/ZIP Co de Phone Number [address] [address] * Hepatitis C antibody, qualitative (12/01/2018 12:21 PM EDT) [facility] HCV Negative Negative [facility] Comment: This is a screening test and should be confirmed with molecular testing Blood 12/01/2018 12:2 1 PM EDT 12/01/2018 7:59 PM EDT Mason Mccray MD LAB BLOOD ORDERABLES Final Re sult Performing Organization Address City/[facility]/ZIP Co de Phone Number [address] [address] * COLONOSCOPY FOR RESULT ENTRY ONLY (03/22/2014) [facility] Colonoscopy 5 yr recall Historical Provider HEALTH MAINTENANCE Final Result * OUTSIDE BONE DENSITY SCREENING (06/26/2009) [facility] BONE DENSITY SCREENING - EXTERNAL normal Historical Provider HEALTH MAINTENANCE Final Result from Last 3 Months or Most Recently Relevant to Health Maintenance Insurance MEDICARE PART A & B [employer] SUPPLEMENT MEDICARE PART A & B [employer] MED[employer] SUPPLEMENT MEDICARE PART A & B [employer] MEDEX SUPPLEMENT MEDICARE PART A & B [employer] MEDEX SUPPLEMENT MEDICARE PART A & B [employer] SUPPLEMENT MEDICARE PART A & B [employer] MEDEX SUPPLEMENT MEDICARE PART A & B [employer] MEDEX SUPPLEMENT MEDICARE PART A & B [employer] MEDEX SUPPLEMENT MEDICARE PART A & B [employer] MEDEX SUPPLEMENT Care Teams Protocol Officer Relationship Specialty Start Date End Date Mason Mccray MD [address] [place] [phone] [email or web address] PCP - General 06/23/17 Mason Mccray MD [address] [place] [phone] [email or web address] Insurance Assigned Provider 12/10/23 Akilah Maciel MD [address] [place] [phone] [email or web address] Surgeon Urology 12/19/19 Juan M Berry MD [address] [place] [address] [place] [address] Ophthalmology 03/02/21 Kevon Powers MD [address] [place] [address] [place] [address] Research Editor Nephrology 09/06/23 Additional Source Comments The information contained in this document represents components of the legal health record. It is not the complete legal health record.[facility]
--- OUTSIDE RECORDS SUMMARY | 2025-06-03 14:43 | XMS_ITS | Encounter Summary ---
Author Organization [facility] Address [address] [facility] [address] [place] [address] Phone Care Team Providers Care Business Partner Name Role Phone Mason Mccray MD Primary Care Provider [phone] Mason Mccray MD Unavailable [phone] Akilah Maciel MD Unavailable [phone] Juan M Berry MD Unavailable Kevon Powers MD Unavailable [phone] Encounter Details Date Type Department Care Team (Latest Contact Info) Description 02/20/2024 Transcribe Orders [facility] Laboratory [address] [place] [address] Kevon Powers MD [address] [place], [place] [id number] Chronic kidney disease, stage IV (severe) (Primary Dx); Nephropathy, obstructive; Other hydronephrosis; Disease of artery; Essential hypertension, malignant Social History Tobacco Use Types Packs/Day Years [...] with a working camera? Not on file Comments No Sex and Gender Information Value [...] Description 10/04/2025 3:00 PM EST Office Visit [facility] Internal Medicine [address] [place] [address] Mason Mccray MD [address] [place] [address] [email or web address] 11/25/2025 2:40 PM EDT Office Visit [facility] Diabetes [facility] [address] [place] [address] Melina Feliz MD 22 [facility], 1st [place] [address] [email or web address] documented as of this encounter Results * (ABNORMAL) TOTAL PROTEIN CREATININE RATIO, RANDOM URINE (10/29/2024 11:31 AM EST) URINE TOTAL PROTEIN 152.0 mg/dL [facility] URINE CREATININE 136 mg/dL [facility] URINE TP CRE RATIO 1.12(H) 0 - 0.19 [facility] Urine (Urine) 10/29/2024 11: 31 AM EST 10/29/2024 11:33 AM EST us Kevon Powers MD URINE ORDERABLES Final Result [facility] [address] [place] [address] * (ABNORMAL) CBC and differential (02/20/2024 10:38 AM EDT) WBC 8.20 4.00 - 11.00 K/uL [facility] RBC 3.61(L) 3.72 - 5.30 M/uL [facility] HGB 11.9 11.4 - 15.9 g/dL [facility] HCT 35.1 34.2 - 46.8 % [facility] PLT 196 140 - 430 K/uL [facility] MCV 97.2(H) 78.0 - 97.0 fL [facility] MCH 33.0 25.0 - 33.0 pg [facility] MCHC 33.9 32.0 - 36.0 g/dL [facility] RDW 16.6(H) 11.0 - 16.0 % [facility] MPV 11.1 8.4 - 12.8 fl [facility] DIFF METHOD Auto [facility] NEUTS 75.4(H) 43.0 - 75.0 % [facility] LYMPHS 14.9(L) 18.2 - 47.4 % [facility] MONOS 7.3 4.00 - 11.00 % [facility] EOS 1.5 0.0 - 8.0 % [facility] BASOS 0.5 0.0 - 2.0 % [facility] Granulocytes, immature (%) 0.4 0.0 - 0.9 % [facility] ABSOLUTE NEUTS 6.19 1.80 - 7.70 K/uL [facility] ABSOLUTE LYMPHS 1.22 1.00 - 3.10 K/uL [facility] ABSOLUTE MONOS 0.60 0.20 - 0.80 K/uL [facility] ABSOLUTE EOS 0.12 0.00 - 0.80 K/uL [facility] ABSOLUTE BASOS 0.04 0.00 - 0.09 K/uL [facility] Granulocytes, immature 0.03 0.00 - 0.05 K/uL [facility] Blood 02/20/2024 10:3 8 AM EDT 02/20/2024 10:39 AM EDT us Kevon Powers MD LAB BLOOD ORDERABLES Fi nal Result Performing Organization Address [facility] Co de Phone Number [address] [address] * (ABNORMAL) 25-OH vitamin D (02/20/2024 10:38 AM EDT) 25 OH VIT D (TOTAL) 27(L) 30 - 60 ng/mL [facility] Blood 02/20/2024 10:3 8 AM EDT 02/20/2024 10:39 AM EDT us Kevon [place] MD LAB BLOOD ORDERABLES Fi nal Result Performing Organization Address [facility] de Phone Number [address] [address] * (ABNORMAL) Parathyroid hormone (PTH) (02/20/2024 10:38 AM EDT) PARATHYROID HORMONE 190(H) 15 - 65 pg/mL [facility] Blood 02/20/2024 10:3 8 AM EDT 02/20/2024 10:39 AM EDT Kevon Powers MD LAB BLOOD ORDERABLES Fi nal Result Performing Organization Address [facility] Co de Phone Number [address] [address] * Phosphorus (02/20/2024 10:38 AM EDT) PHOSPHORUS 3.6 2.7 - 4.5 mg/dL [facility] Blood 02/20/2024 10:3 8 AM EDT 02/20/2024 10:39 AM EDT Kevon Powers MD LAB BLOOD ORDERABLES Fi nal Result Performing Organization Address City/[facility] Co de Phone Number [address] [address] * Magnesium (02/20/2024 10:38 AM EDT) MAGNESIUM 2.3 1.6 - 2.6 mg/dL [facility] Blood 02/20/2024 10:3 8 AM EDT 02/20/2024 10:39 AM EDT Kevon Powers MD LAB BLOOD ORDERABLES Fi nal Result Performing Organization Address [facility]/ZIP Co de Phone Number [address] [address] * Uric acid (02/20/2024 10:38 AM EDT) Pathologist [facility] URIC ACID 5.7 2.4 - 7.0 mg/dL [facility] Blood 02/20/2024 10:3 8 AM EDT 02/20/2024 10:39 AM EDT Kevon Powers MD LAB BLOOD ORDERABLES Fi nal Result Performing Organization Address [facility] Co de Phone Number [address] [address] * (ABNORMAL) Comprehensive metabolic panel (02/20/2024 10:38 AM EDT) SODIUM 138 133 - 146 mmol/L [facility] POTASSIUM 4.9 3.3 - 5.1 mmol/L [facility] CHLORIDE 104 96 - 108 mmol/L [facility] CO2 22 21 - 35 mmol/L [facility] BUN 31(H) 6 - 19 mg/dL [facility] CREATININE 2.70(H) 0.5 - 1.5 mg/dL [facility] GLUCOSE 119(H) 70 - 99 mg/dL [facility] ALBUMIN 4.1 3.9 - 4.8 g/dL [facility] TOTAL PROTEIN 7.4 6.5 - 8.0 g/dL [facility] CALCIUM 8.8 8.4 - 10.3 mg/dL [facility] ALKALINE PHOSPHATASE 121(H) 39 - 117 U/L [facility] TOTAL BILIRUBIN 0.3 0.0 - 1.2 mg/dL [facility] AST 20 0 - 37 U/L [facility] ALT 7 0 - 40 U/L [facility] GLOBULIN 3.3 1 - 4.8 g/dL [facility] EGFR 18(L) >59 mL/min/1.7 3m2 [facility] Comment:Estimated glomerular filtration rate calculated using the CKD-EPI refit equation. ANION GAP 17 10 - 20 mmol/L [facility] Blood 02/20/2024 10:3 8 AM EDT 02/20/2024 10:39 AM EDT us Kevon Powers MD LAB BLOOD ORDERABLES Fi nal Result Performing Organization Address City/State/[facility] Co de Phone Number [facility] [address] [place] [address] documented in this encounter Visit Diagnoses Diagnosis Chronic kidney disease, stage IV (severe)- Primary Chronic kidney disease, Stage IV (severe) Nephropathy, obstructive Other specified disorder of kidney and ureter Other hydronephrosis Disease of artery Unspecified disorders of arteries and arterioles Essential hypertension, malignant documented in this encounter Additional Health Concerns Assessment Noted Time PHQ-2 Depression Total Score: 0 06/23/20 23 11:06 AM EDT documented as of this encounter Care Teams Business Partner Relationship Specialty Start Date End Date Mason Mccray MD [address] [place] [address] PCP - General 06/23/17 Mason Mccray MD [address] [place] [address] Insurance Assigned Provider 12/10/23 Akilah Maciel MD [address] [place] [address] [email or web address] Surgeon Urology 12/19/19 Juan M Berry MD [address] [place] [address] [place] [address] Ophthalmology 03/02/21 Kevon Powers MD [address] [place] [address] [place] [address] Neighborhood Coordinator Nephrology 09/06/23 documented as of this encounter Additional Source Comments The information contained in this document represents components of the legal health record. It is not the complete legal health record.[facility]
--- OUTSIDE RECORDS SUMMARY | 2025-06-03 14:43 | XMS_ITS | Encounter Summary ---
Author Organization [facility] Address [address] [employer] [facility] [address] [place] [address] Phone Care Team Providers Care Heel Builder Machine Name Role Phone Mason Mccray MD Primary Care Provider [phone] Mason Mccray MD Unavailable [phone] Yanet Kee CAR HOSTLER Unavailable Kayla Dickens CAR HOSTLER Unavailable [phone] Mason Mccray MD Unavailable Akilah Maciel MD Unavailable Juan M Berry MD Unavailable Kevon Powers MD Unavailable Encounter Details Date Type Department Care Team (Late st Contact Info) Description 06/15/2018 Transcribe Orders [facility] Laboratory [address] [place] [address] Elijah Fischer MD [address] [address] Social History Tobacco Use Types Packs/Day Years [...] Description 10/04/2025 3:00 PM EST Office Visit [facility] Internal Medicine [address] [place] [address] Mason Mccray MD [address] [place] [address] 11/25/2025 2:40 PM EDT Office Visit [facility] Diabetes Center [address] [place] [address] Mleina Feliz MD [address] [place] [address] documented as of this encounter Visit Diagnoses Not on filedocumented in this encounter Additional Health Concerns Assessment Noted Time PHQ-2 Depression Total Score: 0 09/30/19 18 11:18 AM EST documented as of this encounter Care Teams Heel Builder Machine Relationship Specialty Start Date End Date Mason Mccray MD [address] [place] [address] PCP - General 06/23/17 Mason Mccray MD [address] [place] [address] Historical LMR Provider 06/26/17 03/01/21 Yanet Kee NP [address] [place] [address] [place] [address] Historical LMR Provider 06/26/17 Kayla Dickens NP [address] [place] [address] Historical LMR Provider 06/26/17 03/01/21 Mason Mccray MD [address] [place] [address] Insurance Assigned Provider 12/10/23 Akilah Maciel MD [address] [place] [address] Surgeon Urology 12/19/19 Juan M Berry MD [address] [place] [address] [place] [address] Ophthalmology 03/02/21 Kevon Powers MD [address] [place] [address] [place] [address] Catering Sous Chef Nephrology 09/06/23 documented as of this encounter Additional Source Comments The information contained in this document represents components of the legal health record. It is not the complete legal health record.[facility]"
--- OUTSIDE RECORDS SUMMARY | 2025-06-03 14:43 | XMS_ITS | Encounter Summary ---
Author Organization [facility] Address [address] [address] [place] [address] Phone Care Team Providers Care Pediatric Dietician Name Role Phone Mason Mccray MD Primary Care Provider Mason Mccray MD Unavailable Yanet Kee PSYCH SOCIAL WORKER Unavailable Kayla Dickens PSYCH SOCIAL WORKER Unavailable [phone] Mason Mccray MD Unavailable [phone] Akilah Maciel MD Unavailable Juan M Berry MD Unavailable Kevon Powers MD Unavailable Encounter Details Date Type Department Care Team (Late st Contact Info) Description 06/15/2018 Transcribe Orders [facility] Laboratory [address] [place] [address] Elijah Fischer MD [address] [address] Chronic kidney disease, stage III (moderate) (Primary Dx); Kidney stones; Morbid obesity; Secondary hypertension; Obstructive and reflux uropathy Social History Tobacco Use Types Packs/Day Years [...] Description 10/04/2025 3:00 PM EST Office Visit [facility] Internal Medicine [address] [place] [address] Mason Mccray MD [address] [place] [address] 11/25/2025 2:40 PM EDT Office Visit [facility] Diabetes Center [address] [place] [address] Melina Feliz MD 22 [facility], 1st [place] [address] documented as of this encounter Results * (ABNORMAL) Renal panel (06/15/2018 10:34 AM EDT) SODIUM 138 133 - 146 mmol/L [facility] POTASSIUM 4.8 3.3 - 5.1 mmol/L [facility] CHLORIDE 99 96 - 108 mmol/L [facility] CO2 22 21 - 35 mmol/L [facility] GLUCOSE 189(H) 70 - 99 mg/dL [facility] BUN 25(H) 6 - 19 mg/dL [facility] CREATININE 2.40(H) 0.5 - 1.5 mg/dL [facility] CALCIUM 9.4 8.4 - 10.3 mg/dL [facility] PHOSPHORUS 3.2 2.7 - 4.5 mg/dL [facility] ALBUMIN 4.0 3.9 - 4.8 g/dL [facility] EGFR 20(L) >59 mL/min/1.7 3m2 [facility] Comment:If patient is black, multiply result by 1.159. Estimated glomerular filtration rate calculated using the CKD-EPI equation. ANION GAP 22(H) 10 - 20 mmol/L [facility] Blood 06/15/2018 10:3 4 AM EDT 06/15/2018 10:45 AM EDT us Elijah Fischer MD LAB BLOOD ORDERABLE S Final Result [address] [address] * (ABNORMAL) Parathyroid hormone (PTH) (06/15/2018 10:34 AM EDT) PARATHYROID HORMONE 112(H) 15 - 65 pg/mL [facility] Blood 06/15/2018 10:3 4 AM EDT 06/15/2018 10:46 AM EDT us Elijah Fischer MD LAB BLOOD ORDERABLE S Final Result Performing Organization Address City/[facility]/ZIP Co de Phone Number [address] [address] * Magnesium (06/15/2018 10:34 AM EDT) MAGNESIUM 1.8 1.6 - 2.6 mg/dL [facility] Blood 06/15/2018 10:3 4 AM EDT 06/15/2018 10:45 AM EDT us Elijah Fischer MD LAB BLOOD ORDERABLE S Final Result [address] [address] * (ABNORMAL) CBC and differential (06/15/2018 10:34 AM EDT) WBC 7.09 3.40 - 11.20 K/uL [facility] RBC 4.06 3.80 - 4.80 M/uL [facility] HGB 11.4(L) 12.0 - 15.0 g/dL [facility] HCT 35.4(L) 36.0 - 46.0 % [facility] PLT 140 130 - 400 K/uL [facility] MCV 87.2 79.0 - 98.0 fL [facility] MCH 28.1 27.0 - 34.8 pg [facility] MCHC 32.2 31.5 - 36.0 g/dL [facility] RDW 15.9(H) 10.8 - 14.6 % [facility] MPV 11.4 9.4 - 12.4 fl [facility] NRBC 0.00 /100 WBCs [facility] ABSOLUTE NRBC 0.00 K/uL [facility] DIFF METHOD Auto [facility] NEUTS 74.2 45.30 - 77.70 % [facility] LYMPHS 14.5 12.30 - 39.70 % [facility] MONOS 8.3 4.10 - 12.80 % [facility] EOS 1.8 0 - 7.2 % [facility] BASOS 0.6 0 - 2.80 % [facility] Granulocytes, immature (%) 0.6 0.0 - 0.9 % [facility] ABSOLUTE NEUTS 5.26 1.40 - 7.70 K/uL [facility] ABSOLUTE LYMPHS 1.03 0.60 - 3.20 K/uL [facility] ABSOLUTE MONOS 0.59 0.11 - 0.59 K/uL [facility] ABSOLUTE EOS 0.13 0.01 - 0.50 K/uL [facility] ABSOLUTE BASOS 0.04 0.00 - 0.08 K/uL [facility] Granulocytes, immature 0.04 0.00 - 0.05 K/uL [facility] Blood 06/15/2018 10:3 4 AM EDT 06/15/2018 10:45 AM EDT us Elijah Fischer MD LAB BLOOD ORDERABLE S Final Result [facility] [address] [place] [address] documented in this encounter Visit Diagnoses Diagnosis Chronic kidney disease, stage III (moderate)- Primary Chronic kidney disease, Stage III (moderate) Kidney stones Calculus of kidney Morbid obesity Secondary hypertension Other secondary hypertension, unspecified Obstructive and reflux uropathy documented in this encounter Additional Health Concerns Assessment Noted Time PHQ-2 Depression Total Score: 0 09/30/19 18 11:18 AM EST documented as of this encounter Care Teams Pediatric Dietician Relationship Specialty Start Date End Date Mason Mccray MD [address] [place] [address] PCP - General 06/23/17 Mason Mccray MD [address] [place] [address] Historical LMR Provider 06/26/17 03/01/21 Yanet Kee NP [address] [place] [address] Historical LMR Provider 06/26/17 Kayla Dickens NP [address] [place] [address] Historical LMR Provider 06/26/17 03/01/21 Mason Mccray MD [address] [place] [address] Insurance Assigned Provider 12/10/23 Akilah Maciel MD [address] [place] [address] Surgeon Urology 12/19/19 Juan M Berry MD [address] [place] [address] [place] [address] Ophthalmology 03/02/21 Kevon Powers MD [address] [place] [address] [place] [address] Fiction And Nonfiction Author Nephrology 09/06/23 documented as of this encounter Additional Source Comments The information contained in this document represents components of the legal health record. It is not the complete legal health record.[facility]
[2025-06-04 16:22] VITALS: BMI 41.9
--- NOTE | 2025-06-05 09:35 | HO.ANESPROP2 ---
Documented by User: Emily Lyles NP 06/05/25 13:05 HPI - Anesthesia Eval Consult details Narrative: 75yo F for Upper Endoscopy and Colonoscopy BMI 42 On combo degludec-liraglutide daily. Plan for GA-tube in OR Follows [facility] for Carotid stenosis. Stable at 11/2024 office visit with 1 year surveillence. carotid duplex scan from 10/22/2024 that showed right?proximal ICA PSV of 115 cm/s, EDV 22 cm/s, ratio 1.2. ?This is consistent with 1 to 49% stenosis.? Left proximal ICA PSV of 277 cm/s, EDV 42 cm/s, ratio of 1.68. ?This is consistent with 70 to 99% stenosis, however, on the lower end of the spectrum.? Patient is alert and oriented and answers questions well with clear speech?over the phone.? On review of her previous?carotid duplex scans,?the left carotid has been unchanged since 2022.? Since it has been stable, we can?follow this?yearly, however, she was advised to call the office sooner if she has any questions or concerns. ?She was advised to continue taking 81 mg aspirin?daily. Follows [facility] for CKD St 5, DM, Proteinuria. Last office visit 04/2025. Plan for referral for peritoneal dialysis. Awaiting colonoscopy results d/t anemia Mild Aortic stenosis (CHER 1.4) noted on ECHO preop total joint in 2020. No cardiac/echo f/u available in [facility] [place]. Unable to reach patient by phone to eval. Vascular OV notes that patient is limited in activity by her breathing. Case reviewed with [facility] Active Problems Active Problems: All Active Problems Encounter for screening colonoscopy (Acute) Aortic stenosis (Acute) Preoperative cardiovascular examination (Acute) Acid reflux (Acute) Constipation (Acute) Carotid disease, bilateral (Acute) Diabetes mellitus (Acute) Chronic kidney disease (Acute) HTN (hypertension) (Acute) Past Medical History Medical History Acid reflux Constipation Hypothyroidism PONV (postoperative nausea and vomiting) Hx of benign neoplasm of adrenal gland LETICIA (obstructive sleep apnea) Renal calculi Hypercholesteremia Cataracts, bilateral Chronic renal failure (CRF), stage 4 (severe) Arthritis Carotid disease, bilateral Diabetes mellitus Chronic kidney disease HTN (hypertension) Family History Family History Father Diabetes Mother Cancer Diabetes Family history of problems with anesthesia: No Surgical History Surgical History Hx of bilateral cataract extraction (2023) History of back surgery (~2003) Hx of colonoscopy History of bilateral knee replacement Hx of lithotripsy History of bladder surgery Hx of total adrenalectomy Hx of thyroidectomy History of mandibular surgery Hx of knee surgery History of Problems with Anesthesia: No Social History Social History Household Members: Spouse and Other Household Members Other:: Granddaughter Housing: House Are you a primary rn care transition to a significant other at home: No Do you presently have visiting nurse or other home services: No Alcohol intake: never Patient Tobacco Use Status: Former Tobacco user Tobacco use type: Cigarette Years Smoked: 25 years Smoked in Last 30 Days: No Use of substances other than those prescribed or required for medical reasons: Yes Substance Use Type Other:: gummie Are you DNR?: No Advance Directives: No Advance Directives Information Provided: Yes Advance Directives on File: No Patient : No : No Poor oral hygiene: No Meds Allergies Allergy/AdvReac Type Severity Reaction Status Date / Time oxycodone (From PERCODAN) Allergy Severe sob, Verified 06/04/25 16:25 diaphoretic, syncope, muscle pain Yftxrpx-KGI-ZnX Reductase Allergy Severe MUSCLE PAIN Verified 06/04/25 16:25 Inhibitor ([id number] REDUCTASE INHIBITOR) lisinopril (From Zestril) AdvReac Cough Verified 06/04/25 16:31 Home Medications ?Medication ?Instructions ?Recorded ?Confirmed ?Last Taken ?Type amlodipine 5 mg tablet 10 mg PO DAILY 04/01/21 06/04/25 06/06/25 History diazepam 5 mg tablet 5 mg PO DAILY PRN Anxiety 04/01/21 06/04/25 Unknown History terazosin 2 mg capsule 2 mg PO BEDTIME 04/01/21 06/04/25 Unknown History tramadol 50 mg tablet 50 mg PO Q6H PRN Pain 04/01/21 06/04/25 Unknown History acetaminophen 500 mg tablet 500 mg PO Q6H PRN Pain 06/20/24 06/04/25 Unknown History albuterol sulfate 90 mcg/actuation 2 puff inhalation Q4H PRN wheezing 06/20/24 06/04/25 Unknown History aerosol inhaler aspirin 81 mg tablet,delayed 81 mg PO DAILY 06/20/24 06/04/25 06/03/25 History release gabapentin 300 mg capsule 300 mg PO BEDTIME 06/20/24 06/04/25 Unknown History insulin degludec 100 30 unit subcut DAILY 06/20/24 06/04/25 06/05/25 History unit-liraglutide 3.6 mg/mL(3 mL) subcutaneous pen (Xultophy 100/3.6) levothyroxine 100 mcg tablet 100 mcg PO 6XW 06/20/24 06/04/25 06/06/25 History melatonin 10 mg tablet 15 mg PO BEDTIME PRN Insomnia 06/20/24 06/04/25 Unknown History levothyroxine 150 mcg tablet 150 mcg PO .QSUNDAY 06/27/24 06/04/25 Unknown History cholecalciferol (vitamin D3) 25 25 mcg PO DAILY 12/25/24 06/04/25 Unknown History mcg (1,000 unit) capsule losartan 25 mg tablet 50 mg PO DAILY 06/04/25 06/04/25 Unknown History Exam Height,Weight and Vital Signs: Height 5 ft 4 in Weight 110.677 kg Pertinent Lab Results Pertinent Lab Results: Labs 04/2025 WBC 3.4 - 10.8 x10E3/uL 8.3 RBC 3.77 - 5.28 x10E6/uL 3.64?Low? Hemoglobin 11.1 - 15.9 g/dL 10.1?Low? Hematocrit 34.0 - 46.6 % 32.6?Low? MCV 79 - 97 fL 90 MCH 26.6 - 33.0 pg 27.7 MCHC 31.5 - 35.7 g/dL 31?Low? RDW 11.7 - 15.4 % 14.8 Platelets 150 - 450 x10E3/uL 228 Glucose 70 - 99 mg/dL 109?High? BUN 8 - 27 mg/dL 24 Creatinine 0.57 - 1.00 mg/dL 3.3?High? eGFR CKD-EPI CR 2020 >59 mL/min/1.73 14?Low? BUN/Creatinine Ratio 12 - 28 7?Low? Sodium 134 - 144 mmol/L 141 Potassium 3.5 - 5.2 mmol/L 4.5 Chloride 96 - 106 mmol/L 105 Bicarbonate (CO2) 20 - 29 mmol/L 18?Low? Calcium 8.7 - 10.3 mg/dL 8.7 Total Protein 6.0 - 8.5 g/dL 7 Albumin 3.8 - 4.8 g/dL 4.2 Globulin 1.5 - 4.5 g/dL 2.8 Total Bilirubin 0.0 - 1.2 mg/dL 0.3 Alkaline Phosphatase 44 - 121 IU/L 132?High? AST (SGOT) 0 - 40 IU/L 9 ALT (SGPT) 0 - 32 IU/L 6 Assessment and Plan Final Anesthetic Review Family History of Problems with Anesthesia: No History of Problems with Anesthesia: No Documented by User: Jessa Moreland MD 06/06/25 12:19 [facility] Past Medical History Medical History Acid reflux Constipation Hypothyroidism PONV (postoperative nausea and vomiting) Hx of benign neoplasm of adrenal gland LETICIA (obstructive sleep apnea) Renal calculi Hypercholesteremia Cataracts, bilateral Chronic renal failure (CRF), stage 4 (severe) Arthritis Carotid disease, bilateral Diabetes mellitus Chronic kidney disease HTN (hypertension) Family History Family History Father Diabetes Mother Cancer Diabetes Surgical History Surgical History Hx of bilateral cataract extraction (2023) History of back surgery (~2003) Hx of colonoscopy History of bilateral knee replacement Hx of lithotripsy History of bladder surgery Hx of total adrenalectomy Hx of thyroidectomy History of mandibular surgery Hx of knee surgery Social History Social History Household Members: Spouse and Other Household Members Other:: Granddaughter Housing: House Are you a primary rn care transition to a significant other at home: No Do you presently have visiting nurse or other home services: No Alcohol intake: never Patient Tobacco Use Status: Former Tobacco user Tobacco use type: Cigarette Years Smoked: 25 years Smoked in Last 30 Days: No Use of substances other than those prescribed or required for medical reasons: Yes Substance Use Type Other:: gummie Are you DNR?: No Advance Directives: No Advance Directives Information Provided: Yes Advance Directives on File: No Patient : No : No Poor oral hygiene: No Meds Allergies Allergy/AdvReac Type Severity Reaction Status Date / Time oxycodone (From PERCODAN) Allergy Severe sob, Verified 06/04/25 16:25 diaphoretic, syncope, muscle pain Umepagz-BAI-ErE Reductase Allergy Severe MUSCLE PAIN Verified 06/04/25 16:25 Inhibitor ([id number] REDUCTASE INHIBITOR) lisinopril (From Zestril) AdvReac Cough Verified 06/04/25 16:31 Home Medications ?Medication ?Instructions ?Recorded ?Confirmed ?Last Taken ?Type amlodipine 5 mg tablet 10 mg PO DAILY 04/01/21 06/04/25 06/06/25 History diazepam 5 mg tablet 5 mg PO DAILY PRN Anxiety 04/01/21 06/04/25 Unknown History terazosin 2 mg capsule 2 mg PO BEDTIME 04/01/21 06/04/25 Unknown History tramadol 50 mg tablet 50 mg PO Q6H PRN Pain 04/01/21 06/04/25 Unknown History acetaminophen 500 mg tablet 500 mg PO Q6H PRN Pain 06/20/24 06/04/25 Unknown History albuterol sulfate 90 mcg/actuation 2 puff inhalation Q4H PRN wheezing 06/20/24 06/04/25 Unknown History aerosol inhaler aspirin 81 mg tablet,delayed 81 mg PO DAILY 06/20/24 06/04/25 06/03/25 History release gabapentin 300 mg capsule 300 mg PO BEDTIME 06/20/24 06/04/25 Unknown History insulin degludec 100 30 unit subcut DAILY 06/20/24 06/04/25 06/05/25 History unit-liraglutide 3.6 mg/mL(3 mL) subcutaneous pen (Xultophy 100/3.6) levothyroxine 100 mcg tablet 100 mcg PO 6XW 06/20/24 06/04/25 06/06/25 History melatonin 10 mg tablet 15 mg PO BEDTIME PRN Insomnia 06/20/24 06/04/25 Unknown History levothyroxine 150 mcg tablet 150 mcg PO .QSUNDAY 06/27/24 06/04/25 Unknown History cholecalciferol (vitamin D3) 25 25 mcg PO DAILY 12/25/24 06/04/25 Unknown History mcg (1,000 unit) capsule losartan 25 mg tablet 50 mg PO DAILY 06/04/25 06/04/25 Unknown History Exam Airway Mallampati Class: II TM Dist: >3cm Neck ROM: Full Heart: rrr Lungs: cta Assessment and Plan Assessment Anesthesia Assessment: Anesthesia Plan Discussed and Chart Reviewed Final Anesthetic Review NPO: Yes ASA Class: III Final Preanesthetic Review: No Changes in Pt Med Stat, Meds/Allgs Chart Reviewed, Consent Obtained/Reviewed and Anes Risks/Benef Reviewed Patient Risk: Intermediate Procedure Risk: Low Anesthetic Plan Anesthetic Plan: GA Disposition: Standard PACU
[2025-06-06 10:54] VITALS: BMI 41.7
--- NOTE | 2025-06-06 11:00 | PC.NURSE ---
MD JUÁREZ AWARE OF HER INJECTION OF XULTOPHY. OK TO PROCEED. TAKEN YESTERDAY.
[2025-06-06 11:09] LABS: Glucose, Whole Blood 110 mg/dL (60-115)
--- NOTE | 2025-06-06 11:09 | MHC.SHP ---
Pre-Procedural Eval Section A - 24 Hr Update-Section A only Date of Service: 06/06/25 Section B - Complete if H&P > 30 days Chief Complaint: screening,gerd, Details of Present Illness: Acid reflux Constipation Hypothyroidism PONV (postoperative nausea and vomiting) Hx of benign neoplasm of adrenal gland LETICIA (obstructive sleep apnea) Renal calculi Hypercholesteremia Cataracts, bilateral Chronic renal failure (CRF), stage 4 (severe) Arthritis Carotid disease, bilateral Diabetes mellitus Chronic kidney disease HTN (hypertension) Surgical History (Updated 12/25/24 @ 13:03 by Lorene Rodriges) Hx of cataract surgery History of back surgery (~2003) Hx of colonoscopy History of bilateral knee replacement Hx of lithotripsy History of bladder surgery Hx of total adrenalectomy Hx of thyroidectomy History of mandibular surgery Hx of knee surgery Present Medications: see Short Stay Collaborative assessment Allergies: Allergies Allergy/AdvReac Type Severity Reaction Status Date / Time oxycodone (From PERCODAN) Allergy Severe sob, Verified 06/04/25 16:25 diaphoretic, syncope, muscle pain Ftcppkf-PRN-JrV Reductase Allergy Severe MUSCLE PAIN Verified 06/04/25 16:25 Inhibitor (PNOPEVX-VRG-XOS REDUCTASE INHIBITOR) lisinopril (From Zestril) AdvReac Cough Verified 06/04/25 16:31 Review of Systems Review of Systems Comment: Ten point ROS negative Exam Exam Comment: Gen appear: No acute distress HEENT: no icterus Chest: No overt resp distress Abd: soft, nontender, nondistended Psych: Stable affect, answering questions appropriately Neuro: A/Ox3 noted to move all extremities spontaneously Ext: no peripheral edema Plan Diagnosis/Plan: Unchanged I have reviewed the history and physical and performed a pertinent physical examination on my patient. No changes have occurred unless specified. Time Spent With Patient Time: Total time managing care of this patient today ____ minutes.
[2025-06-06 11:34] VITALS: BP 185/64; PULSE 91; RESP 16; TEMP 35.8; O2SAT 99
[2025-06-06] MEDS: Lactated Ringers 1,000 ML 100 ML IVCONT (11:46)
[2025-06-06 11:50] LABS: Anion Gap 16 (12-20); Blood Urea Nitrogen 18 mg/dL (9-16); Calcium 9.0 mg/dL (8.4-10.2); Carbon Dioxide 21 mmol/L (22-29); Chloride 109 mmol/L (96-108); Creatinine Clr Calc Pharmacy 18.4; Estimated Glomerular Filt Rate 15; Potassium 4.5 mmol/L (3.3-5.1); Sodium 141 mmol/L (135-145)
[2025-06-06 13:58] VITALS: BP 180/79; PULSE 80; RESP 12; TEMP 36.4; O2SAT 97
--- NOTE | 2025-06-06 13:58 | P.OPN-COLO_ITS ---
Colonoscopy Operative Note Operative Note Date of Service: 06/06/25 Narrative: Procedure: Upper endoscopy and colonoscopy Indication: GERD, screening Endoscopist: Delia Vallejo MD Anesthesia Provider: Bhupinder Palmer CRNA Anesthesia type: GEA Instrument: [id number] and [id number] EGD Procedure:?? The procedure, indications, preparation and potential complications were reviewed with the patient, who indicated understanding and gave written informed consent to proceed. Patient was electively intubated for airway protection by the anesthesiologist. The endoscope was introduced through the mouth, and advanced to the 2nd part of the duodenum. The mucosa was carefully examined on slow withdrawal of the endoscope. The patient tolerated the procedure well. There were no immediate complications.? EGD Findings:? * Esophagus:? Normal esophageal mucosa was noted. The Z-line was at 40 cm and irregular to 39 cm. A hiatal hernia was noted with a diaphragmatic pinch at 44 cm. Cold forceps biopsies were taken from GE junction to rule out zhao's esophagus. * Stomach:? Erythema and scant heme in the .cardia. Retroflexion was performed in the cardia that showed Hill grade II hiatal hernia. Cold forceps biopsies were taken from the stomach body and antrum. * Duodenum:? Normal duodenal mucosa. Colonoscopy Procedure:? The patient was then turned for the colonoscopy. A colowrap was affixed to the lower abdomen. A digital rectal exam was performed which was abnormal for external hemorrhoids.? A distal attachment cap was affixed to the tip of the scope and the colonoscope was then inserted through the anus and advanced through the colon and advanced to the cecum at 80 cm and terminal ileum.? Appendiceal orifice and ileocecal valve were identified. Mucosa was carefully examined under high definition white light as the instrument was slowly withdrawn in a retrograde panoramic fashion. Retroflexion was performed in rectum. The procedure was not difficult. The quality of the prep was BBPS: 2+2+3 = adequate Withdrawal time 34 minutes Limitations: No limitations Findings: Mucosa: Normal colon and terminal ileum mucosa. Protruding lesions: * 1 subepithelial nodule of size 25 mm was noted in transverse colon at 65 cm. This was unroofed with a snare revealing a lipoma underneath. * 2 semi pedunculated polyps of size 13 mm and 18 mm were noted at 55 cm and 60 cm respectively (Kim Isp). Hot snare polypectomy was performed. The polyps were completely removed en-bloc and retrieved. Resolution 360 Endoclips were placed at the polypectomy site. The sites were marked with Melissa ink 3 cm proximal to the site of the polyps. * 2 sessile polyps of size 3-6 mm noted in transverse colon. Cold snare polypectomy was performed. The polyps were completely removed and retrieved. * 1 broad-based semi pedunculated polyp of size 25 mm noted in descending colon at 50 cm (Kim [id number]). Base of the polyp was lifted with a mixture of saline and epinephrine. Hot snare polypectomy was performed. The polyp was completely removed en-bloc and retrieved. A resolution 360 ultra clip and a resolution 360 endoclip were placed at the base of the polypectomy site. Endo rani was placed 2 cm distal to the site of the polyp. * 1 pedunctulated polyp of size 20 mm was noted in descending colon at 40 cm (Kim IP). 2 cc of epinephrine was injected in the stalk of the polyp. Hot snare polypectomy was performed. The polyp was completely removed and retrieved. Resolution 360 Endoclip was placed at the polypectomy site. * Large internal hemorrhoids without stigmata of recent bleeding. Excavated lesions: * [id number] diverticulosis of left colon noted. Impression: 1. Irregular Z line (biopsy) 2. Gastritis (biopsy) 3. Hiatal hernia 4. Normal duodenum 5. Normal colon and terminal ileum mucosa 6. Transverse colon lipoma 7. Total 6 polyps removed including 4 advanced polyps (hot snare, epinephrine, endoclips, endomark) 8. Diverticulosis 9. Internal and external hemorrhoids Recommendations:?? * Follow-up path results * Avoid NSAIDs * Cont famotidine 20 mg BID * Repeat colonoscopy in 3 years if patient in good health * Patient's first degree relatives should be counseled to start colorectal ca screening at 40 y.o with average-risk screening intervals
[2025-06-06 14:00] VITALS: BP 180/79; PULSE 76; RESP 14; O2SAT 97
[2025-06-06 14:05] VITALS: BP 174/71; PULSE 74; RESP 16; O2SAT 97
[2025-06-06 14:10] VITALS: BP 183/68; PULSE 71; RESP 16; TEMP 36.1; O2SAT 96
[2025-06-06 14:18] VITALS: BP 180/65; PULSE 69; RESP 16; O2SAT 96
== END 2025-06-06 14:45 | disposition home or self-care (01) ==
PROVIDERS: Nurse Practitioner; PCP Internal Medicine; Visit Provider Internal Medicine
PROC: (CPT 45385; principal; 2025-06-06 13:00)
DX: Z12.11 Encounter for screening for malignant neoplasm of colon (principal); D12.3 Benign neoplasm of transverse colon; D12.4 Benign neoplasm of descending colon; D17.79 Benign lipomatous neoplasm of other sites; K57.30 Diverticulosis of large intestine without perforation or abscess without bleeding; K64.8 Other hemorrhoids; K64.4 Residual hemorrhoidal skin tags; K21.9 Gastro-esophageal reflux disease without esophagitis; K22.89 Other specified disease of esophagus; K44.9 Diaphragmatic hernia without obstruction or gangrene; I12.9 Hypertensive chronic kidney disease with stage 1 through stage 4 chronic kidney disease, or unspecified chronic kidney disease; E11.22 Type 2 diabetes mellitus with diabetic chronic kidney disease; N18.9 Chronic kidney disease, unspecified; G47.33 Obstructive sleep apnea (adult) (pediatric); Z88.5 Allergy status to narcotic agent; Z88.8 Allergy status to other drugs, medicaments and biological substances
CPT/HCPCS: 45385; 45381; 43239; 36415; 80048; 82947; 88305; 88313; 88342; J0168; J0330; J2003; J2405; J2704; J3010

== ENCOUNTER → 2025-06-06 10:35 | Outpatient (BNV) | payer MEDICARE, SELFPAY | PROVIDERS: PCP Internal Medicine; Visit Provider Internal Medicine | DX: Z12.11 Encounter for screening for malignant neoplasm of colon (principal); D12.3 Benign neoplasm of transverse colon; D12.4 Benign neoplasm of descending colon; K57.90 Diverticulosis of intestine, part unspecified, without perforation or abscess without bleeding; K64.8 Other hemorrhoids; K21.9 Gastro-esophageal reflux disease without esophagitis; K29.70 Gastritis, unspecified, without bleeding | CPT/HCPCS: 43239; 45381; 45385 ==

== ENCOUNTER 2025-07-03 14:37 | Outpatient (AMB) | payer MEDICARE, SELFPAY ==
--- NOTE | 2025-07-03 14:40 | A.OFFVIS_ITS ---
Vital Signs 07/03/25 14:43 Height 5 ft 4 in Weight 240 lb BMI 41.2 BP 148/68 H Blood Pressure Location Lt brachial Position Sitting Pulse 88 Intake Visit Reasons: S/P Double Intake Note: Patient follow up for acid reflux and s/p double results. Patient cc: acid reflux, abdominal pain on and off, constipation on and off, denies any other GI issues. Real Estate Utilization Officer Required: No Accompanied by: Self / Same As Patient Allergies oxycodone (From PERCODAN) Allergy (Severe, Verified 07/03/25 14:40) sob, diaphoretic, syncope, muscle pain Zdwtfhs-RPL-UhO Reductase Inhibitor (EHDPWNY-OWK-CDX REDUCTASE INHIBITOR) Allergy (Severe, Verified 07/03/25 14:40) MUSCLE PAIN lisinopril (From Zestril) Adverse Reaction (Verified 07/03/25 14:40) Cough Medication List - Last Reconciled 07/03/25 by Julia Swenson CNP acetaminophen 500 mg PO Q6H PRN albuterol sulfate 90 mcg/actuation 2 puffs inhalation Q4H PRN amlodipine 10 mg PO DAILY aspirin 81 mg PO DAILY cholecalciferol (vitamin D3) 25 mcg PO DAILY diazepam 5 mg PO DAILY PRN docusate sodium 200 mg (2 x 100 mg) PO BEDTIME famotidine 20 mg PO BID PRN gabapentin 300 mg PO BEDTIME insulin degludec-liraglutide 100 unit-3.6 mg /mL (3 mL) (Xultophy 100/3.6) 30 units subcut DAILY levothyroxine 100 mcg PO 6XW levothyroxine 150 mcg PO .QSUNDAY losartan 50 mg PO DAILY melatonin 15 mg PO BEDTIME PRN polyethylene glycol 3350 (Miralax) 17 grams PO DAILY terazosin 2 mg PO BEDTIME tramadol 50 mg PO Q6H PRN HPI HPI S/P Double: Details: Patient is a 74-year-old female with PMH of hypothyroidism, LETICIA, arthritis, CKDIV, hypertension and diabetes. FU after EGD and colonoscopy (06-06); review results and ongoing GERD/constipation management. She is accompanied by her Dear friend. Pt continues to experience intermittent reflux, now using OTC famotidine (Pepcid) PRN but discontinued esomeprazole until clarified today. Mild benefit noted with acid suppression. Appetite improved after med-induced gastritis episode, now tolerating PO better Constipation persists, attributed to chronic tramadol use; pt has not started previously recommended MiraLAX due to confused indication. No exacerbation of hemorrhoidal or GI bleeding sx. Reports incidental abdl discomfort accompanying recent transient diplopia/vertigo episode, causing brief N/V; pt consults eye doctor, symptoms improving. No interval hospitalizations or acute care visits. [facility] Medical History (Updated 07/03/25 @ 17:37 by Julia Swenson CNP) Hemorrhoids Diverticulosis Tubular adenoma of colon Acid reflux Constipation Hypothyroidism PONV (postoperative nausea and vomiting) Hx of benign neoplasm of adrenal gland LETICIA (obstructive sleep apnea) Renal calculi Hypercholesteremia Cataracts, bilateral Chronic renal failure (CRF), stage 4 (severe) Arthritis Carotid disease, bilateral Diabetes mellitus Chronic kidney disease HTN (hypertension) Surgical History History of esophagogastroduodenoscopy (EGD) Hx of bilateral cataract extraction (2023) History of back surgery (~2003) Hx of colonoscopy History of bilateral knee replacement Hx of lithotripsy History of bladder surgery Hx of total adrenalectomy Hx of thyroidectomy History of mandibular surgery Hx of knee surgery Family History Father Diabetes Mother Cancer Diabetes Social History Household Members: Spouse and Other Household Members Other:: Granddaughter Housing: House Are you a primary health care attorney to a significant other at home: No Do you presently have visiting nurse or other home services: No Alcohol intake: never Patient Tobacco Use Status: Former Tobacco user Tobacco use type: Cigarette Years Smoked: 25 years Review of Systems Const Reports as per HPI ENT Reports as per HPI Card Reports as per HPI Resp Reports as per HPI GI Reports as per HPI Reports as per HPI Physical Exam Vital Signs: Last Vital Signs Pulse 88 07/03/25 14:43 BP 148/68 H 07/03/25 14:43 BMI result Body Mass Index 41.2 Const General: healthy appearing, no acute distress and well developed Nutritional Appearance: average body habitus Orientation/consciousness: patient oriented x3 HEENT Head: Yes normal to inspection, Yes normocephalic and Yes atraumatic Face and sinus: Yes normal facial exam Eyes General: appearance normal, both eyes and all related structures Neck Neck: Yes normal visual inspection Resp Effort & Inspection: normal respiratory effort, able to speak in complete sentences, no tracheal deviation and symmetric chest movement Cardio Jugular venous distension: no JVD Neuro General: patient oriented x3 Gait exam (Neuro): Normal gait present Psych Appearance: grossly normal Mental Status: mental status grossly normal Speech and movement: Normal speech and movement present Affect: normal affect Attitude: cooperative Thought process: Normal thought process present Thought content: Normal thought content present Insight: Good insight present (Psych) Judgement: Good judgement present (Psych) Results Reviewed Results Reviewed: Operative Note Date of Service: 06/06/25 Narrative: Procedure: Upper endoscopy and colonoscopy Indication: GERD, screening Endoscopist: Delia Vallejo MD Anesthesia Provider: Bhupinder Palmer CRNA Anesthesia type: GEA Instrument: [id number] and [id number] EGD Procedure: The procedure, indications, preparation and potential complications were reviewed with the patient, who indicated understanding and gave written informed consent to proceed. Patient was electively intubated for airway protection by the anesthesiologist. The endoscope was introduced through the mouth, and advanced to the 2nd part of the duodenum. The mucosa was carefully examined on slow withdrawal of the endoscope. The patient tolerated the procedure well. There were no immediate complications. EGD Findings: Esophagus: Normal esophageal mucosa was noted. The Z-line was at 40 cm and irregular to 39 cm. A hiatal hernia was noted with a diaphragmatic pinch at 44 cm. Cold forceps biopsies were taken from GE junction to rule out zhao's esophagus. Stomach: Erythema and scant heme in the .cardia. Retroflexion was performed in the cardia that showed Hill grade II hiatal hernia. Cold forceps biopsies were taken from the stomach body and antrum. Duodenum: Normal duodenal mucosa. Colonoscopy Procedure: The patient was then turned for the colonoscopy. A colowrap was affixed to the lower abdomen. A digital rectal exam was performed which was abnormal for external hemorrhoids. A distal attachment cap was affixed to the tip of the scope and the colonoscope was then inserted through the anus and advanced through the colon and advanced to the cecum at 80 cm and terminal ileum. Appendiceal orifice and ileocecal valve were identified. Mucosa was carefully examined under high definition white light as the instrument was slowly withdrawn in a retrograde panoramic fashion. Retroflexion was performed in rectum. The procedure was not difficult. The quality of the prep was BBPS: 2+2+3 = adequate Withdrawal time 34 minutes Limitations: No limitations Findings: Mucosa: Normal colon and terminal ileum mucosa. Protruding lesions: 1 subepithelial nodule of size 25 mm was noted in transverse colon at 65 cm. This was unroofed with a snare revealing a lipoma underneath. 2 semi pedunculated polyps of size 13 mm and 18 mm were noted at 55 cm and 60 cm respectively (Kim Isp). Hot snare polypectomy was performed. The polyps were completely removed en-bloc and retrieved. Resolution 360 Endoclips were placed at the polypectomy site. The sites were marked with Melissa ink 3 cm proximal to the site of the polyps. 2 sessile polyps of size 3-6 mm noted in transverse colon. Cold snare polypectomy was performed. The polyps were completely removed and retrieved. 1 broad-based semi pedunculated polyp of size 25 mm noted in descending colon at 50 cm (Kim 0IIa+Is). Base of the polyp was lifted with a mixture of saline and epinephrine. Hot snare polypectomy was performed. The polyp was completely removed en-bloc and retrieved. A resolution 360 ultra clip and a resolution 360 endoclip were placed at the base of the polypectomy site. Endo rani was placed 2 cm distal to the site of the polyp. 1 pedunctulated polyp of size 20 mm was noted in descending colon at 40 cm (Kim IP). 2 cc of epinephrine was injected in the stalk of the polyp. Hot snare polypectomy was performed. The polyp was completely removed and retrieved. Resolution 360 Endoclip was placed at the polypectomy site. Large internal hemorrhoids without stigmata of recent bleeding. Excavated lesions: Tdmz-sp-fmqoqufa diverticulosis of left colon noted. Impression: 1. Irregular Z line (biopsy) 2. Gastritis (biopsy) 3. Hiatal hernia 4. Normal duodenum 5. Normal colon and terminal ileum mucosa 6. Transverse colon lipoma 7. Total 6 polyps removed including 4 advanced polyps (hot snare, epinephrine, endoclips, endomark) 8. Diverticulosis 9. Internal and external hemorrhoids Recommendations: Follow-up path results Avoid NSAIDs Cont famotidine 20 mg BID Repeat colonoscopy in 3 years if patient in good health Patient's first degree relatives should be counseled to start colorectal ca screening at 40 y.o with average-risk screening intervals PATHOLOGY Collected: 06/06/25 Location: [facility] Received: 06/07/25 Diagnosis A. Stomach, antrum, biopsy: Antral-type mucosa with moderate chronic inactive inflammation; no Helicobacter organisms seen. B. Stomach, body, biopsy: Oxyntic mucosa with moderate chronic inactive inflammation; no Helicobacter organisms seen. C. GE junction, biopsy: - Cardiac-type mucosa with moderate chronic inactive inflammation; no intestinal metaplasia seen. - Squamous epithelium within normal limits. D. Colon, transverse at 55 cm, polypectomy: Fragments of tubular adenoma; negative for high-grade dysplasia or carcinoma. E. Colon, transverse at 60 cm, polypectomy: Fragments of tubular adenoma; negative for high-grade dysplasia or carcinoma. F. Colon, transverse, polypectomies: Tubular adenomata (2); negative for high- grade dysplasia or carcinoma. G. Colon, descending, polypectomy: Tubular adenoma; negative for high-grade dysplasia or carcinoma. H. Colon, descending at 40 cm, polypectomy: Fragments of tubular adenoma; negative for high-grade dysplasia or carcinoma. Clinical History Pre-Op Dx: GERD, screening Post-Op Dx: Gastritis, hiatal hernia, diverticulosis, colon polyps, lipoma at 65cm, hemorrhoid Assessment & Plan Assessment & Plan (1) Tubular adenoma of colon: Comment: 06/06/25 colonoscopy- Normal colon and terminal ileum mucosa; lipoma, two sessile polyps of size 3-6 mm AND two > 10 mm TA (Transverse), > 10 mm TA ( descending), Diverticulosis (left colon), Internal and external hemorrhoids. Recommendation for repeat in 3 years, if in good health (2027). Code(s): D12.6 - Benign neoplasm of colon, unspecified Category: Medical Plan: All polyps removed, 4 advanced polyps (increased CRC risk); early repeat surveillance indicated. No malignancy at this time. Additional testing: None at this time. Medications: None new required. Lifestyle Recommendations: - Continue healthy, high-fiber diet; avoid constipation. - Discussed CRC risk and need for ongoing surveillance. - Advised pt to inform first-degree relatives?screening at age 40. Referrals / Coordination of Care: Repeat colonoscopy scheduled for 3 years, contingent on health status at that time. Follow-Up Plan: Readdress surveillance planning and update family Sx history at next GI visit. (2) Acid reflux: Comment: 06/06/25 Upper endoscopy -Gastritis, Hiatal hernia, Normal duodenum, Code(s): K21.9 - Gastro-esophageal reflux disease without esophagitis Category: Medical Qualifiers: Esophagitis presence: esophagitis presence not specified Qualified Code(s): K21.9 - Gastro-esophageal reflux disease without esophagitis Plan: Partial improvement; incomplete compliance with acid suppression; mild intermittent sx. Gastritis on EGD. Additional testing: -None at present. -consider barium swallow if symptoms persist, despite below treatment plan Medications: - Resume esomeprazole 20 mg PO QAM x 8?12 wks (30 min pre-meal); continue OTC famotidine 20 mg PO PRN for breakthrough. - Monitor for diarrhea, headache, or other ADRs. Lifestyle Recommendations: - Reinforced: Avoid caffeine, maria alejandra. coffee pre-meds; maintain hydration; elevate HOB PRN. - Provided verbal education re: med timing, spacing with levothyroxine. Follow-Up Plan: FU 3 mo to reevaluate GERD/gastritis status +/- wean off PPI if improved; sooner for exacerbation. (3) Constipation: Code(s): K59.00 - Constipation, unspecified Category: Medical Qualifiers: Constipation type: drug induced constipation Qualified Code(s): K59.03 - Drug induced constipation (4) Diverticulosis: Code(s): K57.90 - Diverticulosis of intestine, part unspecified, without perforation or abscess without bleeding Category: Medical Plan: Underlying diverticulosis on colonoscopy. MiraLAX not initiated; constipation ongoing; at risk for diverticulitis if unresolved. Additional testing: None required at this stage. Medications: - Initiate daily MiraLAX (PEG 3350, 17 g in 8 oz H2O/juice/other beverage) AM or PM per pt preference. - Continue to monitor for effectiveness and tolerance. Lifestyle Recommendations: - Increase fiber (as tolerated), routine physical activity, optimal hydration (>1.5?2L/d unless restricted by kidney dz). - Reviewed avoidance of prolonged straining, scheduled toileting, avoid chronic stimulant laxatives. - Provided education re: diverticulosis and dietary management. Referrals / Coordination of Care: Nephrology f/u for CKD; coordinate if further GI workup is needed. Follow-Up Plan: Review bowel patterns and response at 3 mo FU or sooner for acute sx. (5) Hemorrhoids: Code(s): K64.9 - Unspecified hemorrhoids Category: Medical Qualifiers: Hemorrhoid type: unspecified Qualified Code(s): K64.9 - Unspecified hemorrhoids Plan: Asymptomatic; no current irritation, bleeding, or prolapse. monitor for sx. Additional testing: None. Medications: None. Lifestyle Recommendations: Minimize straining; maintain soft stools with above constipation regimen. Referrals / Coordination of Care: None unless symptomatic. Follow-Up Plan: Monitor; intervene if flares develop. Plan Follow-up in 3 months or sooner as needed Time: I spent a total of 30 minutes on the date of encounter which includes: Preparing to see the patient (reviewed previous documentation, test results and medical history) Performing a medically appropriate exam and/or evaluation Ordering medications, tests, and procedures Documenting clinical information in the health record Orders: Orders Liver Panel Today K59.03 - Drug induced constipation Coding Level of Care Code Established Pt Est Pt Level 3 (35636) Patient Type Established Diagnoses Tubular adenoma of colon D12.6 Gastroesophageal reflux disease, unspecified whether esophagitis present K21.9 Esophagitis presence: esophagitis presence not specified Drug-induced constipation K59.03 Constipation type: drug induced constipation Diverticulosis K57.90 Hemorrhoids, unspecified hemorrhoid type K64.9 Hemorrhoid type: unspecified
[2025-07-03 14:43] VITALS: BP 148/68; PULSE 88; BMI 41.2
--- OUTSIDE RECORDS SUMMARY | 2025-07-03 19:00 | XMS_ITS | Data Portability ---
Author Organization [facility], [facility] Address [address] [place] [address] Assessment No assessment recorded. Plan of Treatment Reminders Order Date Submit Date Provider Last Modified By Organization Details Last Modified Time Details Appointments None record ed. Lab None record ed. Referral None record ed. Procedures None record ed. Surgeries None record ed. Imaging None record ed. Medication Orders None record ed. Patient TargetsNo targets recorded. Patient InstructionsNo instructions recorded. Reason for Referral None Reported. Results Created Date Observation Date Name Description Value Unit Range Abnormal Flag Note LastModifiedBy Organization Detail LastModifiedTime 05/05/20 24 06/09/2021 imagi ng/di agnos tic resul t No observ ation record ed. [email or web address] Not Available 04/07 02:09:38 Result Notes None recorded. Problems Name Problem SNOMED Code Status Onset Date Resolution Date Notes Provider Name and Address Organization Details Recorded Time No complaints 158512423 Active Status : 'I'; Not Available [facility] 4 09:20:50 Osteoarthr itis of left knee joint 1599126703276 09 Active 2020 Status : 'A'; Not Available [facility] 4 11:28:57 Trochanter ic bursitis of left hip 0030057100237 03 Active 2023 Lyndsey Dowling CNP [address], [facility] [place], [address] , [facility] 4 13:56:44 Problem Notes None recorded. Procedures Surgical History Date Name Laterality Status Provider Name and Address Organization Details Recorded Time 4 Hip Kenalog 1cc Injection, L/R completed Lyndsey Dowling ACCOUNT RESOLUTION ANALYST [address], [place], [address], [place] - [facility] 02/17/2024 13:56:34 Imaging Results None recorded. Procedure Notes None recorded. Medical Equipment None Reported. Allergies Allergen ID Allergen Name Allergen Category Reaction Reaction Severity Criticality Documentation Date Start Date Code Code System Note Provider Name and Address Organization Details Recorded Time 75104 Percodan medicatio n Not available Not available Not available 11/07/20232020 53413 RxNorm Not Available [facility] 14:47:29 36703 Product containin g 3-hydroxy -3-methyl glutaryl- coenzyme A reductase inhibitor (product) medicatio n Not available Not available Not available 11/07/20232015 80310 009 SNOMED Aller gyNam e: 'Stat ins'; Not Available [facility] 14:47:29 Medications Name Sig Start Date Stop Date Status Note LastModified by Organization Details LastModified Time amlodipine 5 mg tablet TAKE 1 TABLET BY MOUTH EVERY DAY active Not Available Not Available No t Available tramadol 50 mg tablet TAKE 1 TABLET BY MOUTH 2 TIMES A DAY NEEDED ( LOW BACK AND SHOULDERS) active Not Available Not Available N ot Available levothyroxin e 100 mcg tablet TAKE 1 TABLET BY MOUTH DAILY EXCEPT ON WEDNESDAYS & SUNDAYS-LEOPOLDO E 1.5 TABLETS DIRECTED active Not Available Not Available No t Available doxycycline monohydrate 50 mg capsule PLEASE SEE ATTACHED FOR DETAILED DIRECTIONS active Not Available Not Available N ot Available terazosin 2 mg capsule TAKE 1 CAPSULE BY MOUTH EVERY DAY AT NIGHT active Not Available Not Available No t Available OneTouch Ultra Test strips USE TO TEST 3 TIMES A DAY active Not Available Not Available No t Available losartan 25 mg tablet TAKE 1 TABLET BY MOUTH EVERY DAY active Not Available Not Available No t Available docusate sodium 100 mg capsule 200 MG (2 X 100 MG) ORALLY BEDTIME active Not Available Not Available No t Available gabapentin 300 mg capsule TAKE 1 CAPSULE BY MOUTH EVERY DAY active Not Available Not Available No t Available ammonium lactate 12 % topical cream 1 APPLICATION EXTERNALLY TWICE A DAY 30 DAYS active Not Available Not Available No t Available scopolamine 1 mg over [address] 1 PATCH ONTO THE SKIN EVERY THIRD DAY. active Not Available Not Available No t Available diazepam 5 mg tablet 1-2 TABLETS BY MOUTH 1 HOUR PRIOR TO PROCEDURE (UPON ARRIVAL TO OFFICE) active Not Available Not Available No t Available Laxative (bisacodyl) 5 mg tablet,delay ed release PLEASE SEE ATTACHED FOR DETAILED DIRECTIONS active Not Available Not Available N ot Available azelaic acid 15 % topical gel APPLY THIN LAYER TO FACE FOR ROSACEA TWICE A DAY. FOLLOW WITH NON-COMEDOG ENIC MOISTURIZER IN THE AM active Not Available Not Available No t Available Gavilax 17 gram/dose oral powder PLEASE SEE ATTACHED FOR DETAILED DIRECTIONS active Not Available Not Available N ot Available Xultophy 100/3.6 100 unit-3.6 mg/mL (3 mL) subcutaneous insulin pen INJECT 30 UNITS UNDER THE SKIN DAILY active Not Available Not Available No t Available Vitals Date Recorded Body weight Provider Name an d Address Organization Details Last Updated DateTime 02/17/2024 969436.54 g SELIN ZHAO [place] - [facility] 02/17/2024 13:37:17 Social History None recorded. Functional Status None recorded. Mental Status None recorded. Family History Nothing Reported. Medical History No medical history recorded. Gynecological HistoryNo gynecological history recorded. Obstetrics History GPAL:G 0 P 0 0 0 0 Past Encounters Encounter ID Performer Location Encounter Start Date Encounter Closed Date Diagnosis/Indication Diagnosis SNOMED-CT Code Diagnosis ICD10 Code Diagnosis IMO Codes Diagnosis Note [id number] Lyndsey Dowling, [place] [facility] [address]st [address] [facility] [address] [place] [address] 02/17/2024 13:30:06 03/09/2024 14:17:07 Trochanteric bursitis of left hip 0804531056 17341 M70.62 Health Concerns Section Related Observation LastModified by Organization Detai ls LastModified Time None Recorded Concern Status LastModified by Organization Details LastModified Time None Recorded Advance Directives Directive None Recorded Payers Insurance Date Sequence Insurance Name Policy Number Policy [place] Covered Member ID [place] Member ID Guarantor Name 03/09/2024 2 [place] [id number] Jordana Collins [id number] Jordana Collins 02/17/2024 1 [place] [employer] Jordana Collins [id number] Jordana Collins Notes Date Note Type Note Provider Name and Address Organization Details Recorded Time 02/17/2024 text/html ROS as noted in the HPI Jordana is a 73-year-old female who presents today for follow-up. She had previous cortisone injection for trochanteric bursitis which gave her great relief for a few years the pain is now returned she has pain over the lateral aspect of the hip which increases with activity. Lyndsey Dowling, ACCOUNT RESOLUTION ANALYST [address] [facility] [address], [place], [address], [facility] - [facility] 02/17/2024 13:57:07 OBGyn Episode No OBEpisode recorded.
== END 2025-07-03 15:08 | disposition home or self-care (01) ==
LOC: HO.HGI 14:38
PROVIDERS: PCP Internal Medicine; Visit Provider Nurse Practitioner Family
DX: D12.6 Benign neoplasm of colon, unspecified (principal); K21.9 Gastro-esophageal reflux disease without esophagitis; K59.03 Drug induced constipation; K57.90 Diverticulosis of intestine, part unspecified, without perforation or abscess without bleeding; K64.9 Unspecified hemorrhoids
CPT/HCPCS: 99213

== ENCOUNTER → 2025-07-03 14:37 | Outpatient (BNVA) | payer MEDICARE, SELFPAY | PROVIDERS: PCP Internal Medicine; Visit Provider Nurse Practitioner Family | DX: K21.9 Gastro-esophageal reflux disease without esophagitis (principal); K59.03 Drug induced constipation; K64.9 Unspecified hemorrhoids; K57.90 Diverticulosis of intestine, part unspecified, without perforation or abscess without bleeding; D12.6 Benign neoplasm of colon, unspecified | CPT/HCPCS: 99212 ==

== ENCOUNTER 2025-08-14 10:56 | Outpatient (REF) | payer MEDICARE, SELFPAY ==
--- NOTE | ~2025-08-14 | MM_ITS ---
EXAMINATION: MM SCREENING DIGITAL BREAST TOMOSYNTHESIS, BILATERAL CLINICAL INFORMATION: Screening. Asymptomatic. COMPARISON: Mammography: Comparison is made with available priors TECHNIQUE: Digital breast mammography with tomosynthesis is performed in both the craniocaudal and mediolateral oblique views along with computer-aided detection (CAD). FINDINGS: There are scattered areas of fibroglandular density. There are no significant masses, abnormal calcifications, or other abnormalities. MM/MM tomosynthesis screening BI IMPRESSION: No mammographic evidence of malignancy. ASSESSMENT: BI-RADS Category 1: Negative RECOMMENDATION: Routine annual mammography screening. 1 year F/U This examination should not preclude the clinical evaluation of a suspicious palpable abnormality. This patient's information was entered into a reminder system with a target due date for their next mammogram. Electronically signed by: Nicole Rainey DO 08/16/2025 12:19 PM ADOLFO
== END 2025-08-14 10:57 | disposition home or self-care (01) ==
LOC: HO.MAMMO 10:56
PROVIDERS: Absent Provider Obstetrics & Gynecology; PCP Internal Medicine; Visit Provider Internal Medicine
DX: Z12.31 Encounter for screening mammogram for malignant neoplasm of breast (principal)
CPT/HCPCS: 77063; 77067

== ENCOUNTER → 2025-08-14 11:00 | Outpatient (BNV) | payer MEDICARE, SELFPAY | PROVIDERS: Absent Provider Obstetrics & Gynecology; PCP Internal Medicine; Visit Provider Internal Medicine | DX: Z12.31 Encounter for screening mammogram for malignant neoplasm of breast (principal) | CPT/HCPCS: 77063; 77067 ==